=== PATIENT | female | born 1950 | race Caucasian/White ===

== ENCOUNTER 2017-10-01 21:00 | Emergency (ER) | payer MEDICARE, MEDICAID ==
[~2017-10-01] VITALS: Ht 157.5 cm; Wt 54.4 kg
[~2017-10-01 21:00] MED LIST: ALBUTEROL2.5 MG/0.5 IH; BACTRIM DS TAB1 EAC1 PO; KLOR-CON 1010 MEQ PO; LEVAQUIN 500 M500 M2 PO; LISINOPRIL20 MG; MOBIC15 MG PO; PREDNISONE 10 M10 MG PO; QUINAPRIL 20 MG20 MG PO; SPIRIVA INH; SYMBICORT160 MCG/4. INH; TRAMADOL 50 MG50 MG PO; VENTOLIN HFA 1818 GM INH
[2017-10-01] MEDS ORDERED: STELARA45 MG/0.5 (21:40)
[2017-10-01] MEDS ORDERED: DUONEB 2.5-0.5 M3 ML INH (21:41)
[2017-10-01] MEDS ORDERED: PREDNISONE50 MG PO (22:56)
[2017-10-01 23:07] VITALS: BP 108/75
--- NOTE | 2017-10-03 15:13 | EKG ---
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 : 1950 Requested By: Anyi Perez Order Number: [id number] Luis Armando MD: Gerhard Rock Measurements Intervals [place] Rate: 87 P: 66 [place]: 151 QRS: 70 QRSD: 107 T: 54 QT: 379 QTc: 456 Interpretive Statements Sinus rhythm Borderline ST depression, lateral leads Artifact in lead(s) I,II,III,aVR,aVL,V2,V3,V4,V5,V6 Compared to ECG 07/20/2015 22:40:06 Prolonged QT interval no longer present Electronically Signed On 10-03-2017 15:13:24 CDT by Gerhard Rock [email or web address] <ELECTRONICALLY SIGNED> By: Gerhard Rock MD, [facility] 10/03/17 1513 13 13 Gerhard Rock MD, [facility] /EPI
== END 2017-10-01 23:10 | disposition home or self-care (01) ==
LOC: M.ERS 21:00
DX: J44.1 Chronic obstructive pulmonary disease with (acute) exacerbation (principal); I10 Essential (primary) hypertension; Z96.651 Presence of right artificial knee joint; Z88.6 Allergy status to analgesic agent; Z88.5 Allergy status to narcotic agent; Z88.1 Allergy status to other antibiotic agents; Z88.8 Allergy status to other drugs, medicaments and biological substances

== ENCOUNTER 2018-10-03 14:18 | Emergency (ER) | payer MEDICARE, MEDICAID ==
[~2018-10-03] VITALS: Ht 157.5 cm; Wt 54.0 kg
[~2018-10-03 14:18] MED LIST changes: +DUONEB 2.5-0.5 M3 ML INH; +PREDNISONE50 MG PO; +STELARA45 MG/0.5
[2018-10-03] MEDS ORDERED: PREDNISONE 10 M10 M1 PO (14:25)
[2018-10-03] MEDS ORDERED: ATORVASTATIN CA40 MG PO (14:26)
[2018-10-03] MEDS ORDERED: NORVASC10 MG PO (14:26)
[2018-10-03] MEDS ORDERED: DALIRESP250 MCG PO (14:27)
[2018-10-03 14:49] LABS: ABSOLUTE EOSINOPHILS 0.1 thou/uL (0.0-0.7); ABSOLUTE LYMPHOCYTES 1.4 thou/uL (0.8-5.3); ABSOLUTE MONOCYTES 0.7 thou/uL (0.0-1.2); ABSOLUTE NEUTROPHILS 10.4 thou/uL (1.6-8.1); BASOPHILS 0.1 %; EOSINOPHILS 0.6 %; HEMATOCRIT 41.5 % (37.0-47.0); HEMOGLOBIN 13.9 gm/dL (12.0-15.0); MCH 28.2 pg (26.0-34.0); MCHC 33.4 g/dL (28.0-37.0); MCV 84.5 fL (80.0-100.0); MONOCYTES 5.6 %; MPV 8.4 fl. (7.2-11.1); NUCLEATED RBCS 0 /100WBC; PLATELET COUNT* 276 thou/uL (150-400); POLYS 82.7 %; RBC 4.92 mil/uL (4.20-5.00); RDW-CV 13.5 % (10.5-14.5); WBC 12.5 thou/uL (4.0-11.0)
[2018-10-03 14:57] LABS: ANION GAP 10 mmol/L (7-16); BUN 9 mg/dL (7-18); CALCIUM 8.6 mg/dL (8.5-10.1); CHLORIDE 95 mmol/L (98-107); CO2 25 mmol/L (21-32); CREATININE 0.7 mg/dL (0.6-1.3); GLUCOSE 127 mg/dL (70-99); POTASSIUM 3.5 mmol/L (3.5-5.1); SODIUM 130 mmol/L (136-145)
[2018-10-03 15:11] LABS: ALBUMIN 3.8 g/dL (3.4-5.0); ALKALINE PHOSPHATASE 92 U/L (46-116); NT-PRO BRAIN NAT PEPTIDE 72 pg/mL (<300); SGOT 22 U/L (15-37); SGPT 35 U/L (30-65); TOTAL BILIRUBIN 0.3 mg/dL (<0.1-1.0); TOTAL PROTEIN 7.1 g/dL (6.4-8.2); TROPONIN-I LEVEL <0.06 ng/mL (<0.06)
[2018-10-03 17:19] VITALS: BP 168/85
--- NOTE | 2018-10-04 12:54 | EKG ---
[place] [address] ELECTROCARDIOGRAM REPORT Name: YOLI ZAVALA Room: [facility]#: [id number] Admission: 10/03/18 Attend Phys: Discharge: 10/03/18 Date of : 52 Report #: [id number] THIS REPORT FOR: //name// [facility] ED Test Date: 2018-10-03 Test Time: 14:23:59 Pat Name: YOLI ZAVALA Department: Room: Gender: F Rn Transplant: Joe HUTTON : 1950 Requested By: Camilla Pulido Order Number: [id number] MD: Mateo Guajardo Measurements Intervals [place] Rate: 95 P: 78 [place]: 148 QRS: 60 QRSD: 86 T: 39 QT: 356 QTc: 448 Interpretive Statements Sinus rhythm Probable left atrial enlargement Borderline low voltage, extremity leads Artifact in lead(s) II,III,V1,V2,V3,V4,V5,V6 and baseline wander in lead(s) I,II,III,aVL,aVF Compared to ECG 10/01/2017 21:14:03 ST (T wave) deviation no longer present Electronically Signed On 10-04-2018 12:53:56 CDT by Mateo Guajardo [email or web address] <ELECTRONICALLY SIGNED> By: Mateo Guajardo MD, [facility] 10/04/18 1253 1423 1423 Mateo Guajardo MD, [facility] /EPI
== END 2018-10-03 17:13 | disposition home or self-care (01) ==
LOC: M.ERS 14:18
PROVIDERS: Nurse Practitioner Family
DX: J44.9 Chronic obstructive pulmonary disease, unspecified (principal); I10 Essential (primary) hypertension; Z96.651 Presence of right artificial knee joint; Z88.5 Allergy status to narcotic agent; Z88.6 Allergy status to analgesic agent; Z88.8 Allergy status to other drugs, medicaments and biological substances

== ENCOUNTER 2018-11-05 21:22 | Inpatient (IN) | payer MEDICARE, MEDICAID ==
[~2018-11-05] VITALS: Ht 157.5 cm; Wt 64.9 kg
--- NOTE | ~2018-11-05 | OP ---
[address] [address] OPERATIVE REPORT Name: SALLYYOLI J Room: [address] IN .R.#: [id number] Admission: 11/05/18 Attend Phys: Tiffany Cruz MD Discharge: Date of : 52 Report #: [id number] THIS REPORT FOR: //name// CC: [facility] physician/PCP Tiffany Cruz PREOPERATIVE DIAGNOSIS: Right distal femur periprosthetic fracture, comminuted. POSTOPERATIVE DIAGNOSIS: Right distal femur periprosthetic fracture, comminuted with stable implant. OPERATIONS PERFORMED: 1. Open reduction and internal fixation of right distal femur periprosthetic fracture. 2. Physician directed fluoroscopy greater than 1 hour. SURGEON: Ko Kennedy DO ASSISTANTS: 1. Ko Arenas DO 2. Karthik Aviles DO ANESTHESIA: General. ANTIBIOTICS: Ancef IV preoperatively. FLUIDS: 1000 mL of lactated Ringer's. ESTIMATED BLOOD LOSS: 250 mL. COMPLICATIONS: None. SPECIMENS: None. DRAINS: None. CONDITION: The patient is stable to PACU. IMPLANTS: Mary NCB distal femur plate, locking screws distally, two unicortical locking screws proximally with the remainder cortical screws. INDICATIONS FOR PROCEDURE: The patient presented to [facility] with a right femur fracture after a fall. I had multiple conversations with the patient and family going over diagnosis, treatment options and plan of surgery, risks and complications in detail. Please see the consultation note for full details of discussion had. We obtained her verbal and written consent to proceed as she acknowledged and [place] [address] OPERATIVE REPORT Name: YOLI ZAVALA Room: [address] IN .R.#: [id number] Admission: 11/05/18 Attend Phys: Tiffany Cruz MD Discharge: Date of : 52 Report #: [id number] DESCRIPTION OF PROCEDURE: I marked the right lower extremity in the presence of the operative team members and everyone agreed. She was taken back to the operative suite where a briefing was performed indicating correct patient, procedure, site, antibiotics and implants were present in sterile, all team members agreed. General anesthetic was administered. She was then transferred over to the operative table in supine position, well-padded and secured. The right lower extremity was sterilely prepped and draped in standard fashion. Timeout was performed indicating correct patient, procedure, site, antibiotics and implants were present and sterile. All team members agreed. She was brought in C-arm to help localizer her images that we would be using a MIPO technique so as to not disturb the fracture site biology due to all the comminution. We began by making our incision distally maintaining the incision just distal and not dissecting at the fracture site. Scalpel was taken through skin, dissecting down to the IT band, which was then incised with a secondary scalpel and we were onto the lateral aspect of the distal femur. We could visualize the femoral component and the anterior flange component was stable. There was fracture line extending into the metaphysis laterally, distal to the implant making this fracture came into see for plate placement. We then slid up a Majano elevator to make a way for plate placement. We trialed a 9-hole plate. The 9-hole plate was confirmed to be in appropriate position on multiplanar C-arm imaging with the fracture reduction being held, restoring length, alignment and rotation. This would leave a very short working length of the fracture with increased stiffness and next size up with a 13-hole plate and while this did take us up to the lesser trochanter, this would give us a better working construct for fixation. We therefore made an incision proximally, localized the plate to the bone and pinned into position with a K-wire distally and confirmed that we had restored length, alignment and rotation of our femur just obtaining excellent reduction. I placed 3 K-wires to hold into position distally. We confirmed on multiple images on multiple planes that her plate placement was excellent and that on the lateral image, we would be able to shoot screws around the implant and that we had restored length, alignment and rotation. We began by placing screws distally. We drilled, measured and placed appropriately sized screws with locking caps placed. We then began proximally by percutaneously making an incision carefully spreading down to the plate, drilling and placed an appropriately sized cortical screw. We had fixation both proximal and distal to the fracture now. Our fracture reduction was excellent. We placed 2 more cortical screws proximally, one unicortical locking screw in the most proximal hole, placed the remaining distal screws. At this point in time, we checked fracture stability with valgus and varus force. There was some motion at the fracture site and actually more gapping that I would like to see. I therefore added a unicortical locking screw proximal and another locking screw distally. While this did decrease the working length of the fracture site, there was still flexibility in the fracture as when I took the varus and valgus, there is not gapping as much as before, but could see some subtle motion in regards to the fracture fragments showing that we still had a flexible [address] [address] OPERATIVE REPORT Name: YOLI ZAVALA Room: [address]#: [id number] Admission: 11/05/18 Attend Phys: Tiffany Cruz MD Discharge: Date of : 52 Report #: [id number] construct. We took and shaved all C-arm images, which showed excellent placement of hardware and spiritism of length, alignment and rotation. We were able to flex her knee up to 120 degrees fully extend her knee with no impediment to motion and no instability of the fracture during that motion. We saved final C-arm images to dismiss the arm. We irrigated thoroughly all incision sites with normal saline including within the joint. We closed the deep layers reconstructing the IT band with 0 Vicryl [id number]-vo-qimmz interrupted. Subcutaneous and skin were closed with 2-0 Monocryl buried deep and david. A debriefing was performed where we confirmed the procedure, blood loss and that all counts were correct and final. All team members agreed. Sterile silver impregnated dressings were applied. She was fitted to a 3D hinged brace that was open from 0-115 degrees of motion. She was extubated and transferred on the operative table and taken to PACU in stable. POSTOPERATIVE COURSE AND EVALUATION: I spoke with family members, addressed any questions they had. They were thankful for my time and effort. Then, they can call anytime to make sure that access to my office on personal number. The patient was resting in the PACU with stable vital signs. Pain controlled. Neurovascularly, she was intact in that extremity with no change compared to preoperative. Her compartments are soft and compressible. Dressings were clean, dry and intact. Brace is well-fitting. PACU films showed stable internal fixation and fracture reduction. No change compared to our intraoperative images. We are obtaining as she was complaining of some minor back pain. The patient felt this was most likely due to the fact that she sleeps on her side. She is having no numbness, tingling or loss of sensation in her extremities. No bowel or bladder issues. She will be nonweightbearing on the right lower extremity. We will encourage range of motion throughout all joints in the right lower extremity. DVT prophylaxis will be pharmacological and mechanical pharmacologic. We will get the help of our medical colleagues. PT, OT, case management to help with discharge planning. By: [id number] Kennedy DO /jose
[~2018-11-05 21:22] MED LIST changes: +DALIRESP250 MCG PO; -DUONEB 2.5-0.5 M3 ML INH; +IPRAT-ALBUT 0.5-3 ML INH; +LIPITOR40 MG PO; +NORVASC10 MG PO; +PREDNISONE 10 M10 M1 PO
[2018-11-05 21:23] VITALS: BP 74/44
[2018-11-05 21:41] LABS: ABSOLUTE BASOPHILS 0.1 thou/uL (0.0-0.2); ABSOLUTE EOSINOPHILS 0.2 thou/uL (0.0-0.7); ABSOLUTE LYMPHOCYTES 2.4 thou/uL (0.8-5.3); ABSOLUTE MONOCYTES 1.1 thou/uL (0.0-1.2); ABSOLUTE NEUTROPHILS 8.9 thou/uL (1.6-8.1); BASOPHILS 0.4 %; EOSINOPHILS 1.6 %; HEMATOCRIT 37.5 % (37.0-47.0); HEMOGLOBIN 12.2 gm/dL (12.0-15.0); LYMPHOCYTES 18.9 %; MCH 27.7 pg (26.0-34.0); MCHC 32.5 g/dL (28.0-37.0); MCV 85.2 fL (80.0-100.0); MONOCYTES 8.7 %; MPV 8.1 fl. (7.2-11.1); NUCLEATED RBCS 0 /100WBC; PLATELET COUNT* 266 thou/uL (150-400); POLYS 70.4 %; RDW-CV 13.2 % (10.5-14.5); WBC 12.6 thou/uL (4.0-11.0)
[2018-11-05 21:52] LABS: PROTIME 10.1 Seconds (9.20-11.50)
[2018-11-05 21:57] LABS: CALCIUM 8.1 mg/dL (8.5-10.1); CREATININE 0.8 mg/dL (0.6-1.3); POTASSIUM 3.6 mmol/L (3.5-5.1)
[2018-11-05 22:02] LABS: ALBUMIN 3.3 g/dL (3.4-5.0); TOTAL BILIRUBIN 0.2 mg/dL (<0.1-1.0); TOTAL PROTEIN 5.9 g/dL (6.4-8.2)
[2018-11-06 01:30] VITALS: BP 110/66
[2018-11-06 02:39] VITALS: BP 125/72
[2018-11-06 08:19] VITALS: BP 104/66
[2018-11-06 10:25] LABS: BE -0.8 mmol/L (-2 to +3); PCO2 42.3 mmHg (35.0-45.0); PO2 70.6 mmHg (75.0-100.0); pH 7.379 (7.340-7.450)
[2018-11-06 11:15] VITALS: BP 99/58
[2018-11-06 16:11] VITALS: BP 112/68
[2018-11-06 19:40] VITALS: BP 118/73
[2018-11-07] VITALS (7 sets, daily range): BP systolic 112–139; BP diastolic 62–77
[2018-11-07 05:20] LABS: HEMATOCRIT 27.6 % (37.0-47.0); MCH 29.7 pg (26.0-34.0); MCHC 35.2 g/dL (28.0-37.0); MCV 84.4 fL (80.0-100.0); MPV 8.7 fl. (7.2-11.1); NUCLEATED RBCS 0 /100WBC; PLATELET COUNT* 202 thou/uL (150-400); RBC 3.28 mil/uL (4.20-5.00); RDW-CV 12.9 % (10.5-14.5); WBC 10.3 thou/uL (4.0-11.0)
[2018-11-07 05:24] LABS: HEMOGLOBIN 9.7 gm/dL (12.0-15.0)
[2018-11-07 05:43] LABS: CALCIUM 8.4 mg/dL (8.5-10.1); CREATININE 0.6 mg/dL (0.6-1.3); POTASSIUM 3.6 mmol/L (3.5-5.1)
[2018-11-07 05:53] LABS: ABSOLUTE LYMPHOCYTES 0.6 thou/uL (0.8-5.3); ABSOLUTE MONOCYTES 0.3 thou/uL (0.0-1.2); ABSOLUTE NEUTROPHILS 9.4 thou/uL (1.6-8.1); PLATELET ESTIMATE ADEQUATE
[2018-11-07 05:54] LABS: ANISOCYTOSIS 1+; POIKILOCYTOSIS 1+
--- NOTE | 2018-11-07 08:19 | CON ---
[address] [address] CONSULTATION Name: FERMINAGYOLI RÍOS Room: [address] IN .#: [id number] Admission: 11/05/18 Attend Phys: Tiffany Cruz MD Discharge: Date of : 52 Report #: [id number] THIS REPORT FOR: //name// CC: JAS MIRANDA MD [facility] physician/PCP Tiffany Cruz DATE OF SERVICE: 11/06/2018 ATTENDING PHYSICIAN: Jas Miranda MD I do have a primary care physician on this lady at this time. HISTORY OF PRESENT ILLNESS: The patient is a 67-year-old female, current smoker, is oxygen dependent on 2 liters, has been that way for the last several years. It appears she tripped over her oxygen tubing last night and then developed a right-sided and right leg pain. She had trouble in movement and could not bear any weight on it. She is seen by the ambulance. She was wheezy, had a cough and was transferred into the Emergency Room. She has had a couple doses of steroids from the last night to this morning as well as a couple breathing treatments. I was asked to see her to clear for surgery. They want to do a right femur pin with rods this afternoon, I believe by Dr. Ramirez. Her previous right hip replacement, she had several years ago, she tolerated well without needing any extra oxygen or having any anesthetic complications. PAST MEDICAL HISTORY: She has had COPD since being seen by Dr. Gilmore in 2013. She has had a couple of exacerbations, been on oxygen 2 liters. For some reason, she has been steroid dependent now for the last 4 months for COPD, on prednisone 10 mg a day. Again, she has this distal femur fracture, which is new. She did have a right knee replacement in 2006, which she tolerated well, again without problems and she has had a tubal ligation in 1974. Her medical illnesses include COPD. She has had some lower lobe pulmonary fibrosis on CT scans. I have not seen her PFTs and she also has a history of hypertension. ALLERGIES: SHE HAS ALLERGIES OR INTOLERANCE TO ACETAMINOPHEN WITH SOME NAUSEA, HYDROCODONE GIVES HER NAUSEA, AZITHROMYCIN GIVES HER NAUSEA, CODEINE GIVES HER NAUSEA, MORPHINE SAME NAUSEA AND HEADACHE AND COMPAZINE ALSO THE SAME. HOME MEDICATIONS: Include albuterol inhaler, Ventolin rescue inhaler. She has DuoNeb treatments 4 times a day. Prednisone dose is 10 mg daily. She is on Breo 200/5 mcg 1 puff daily and then also on roflumilast or Daliresp at 250 mcg daily, also on amlodipine 10 mg daily and atorvastatin 40 mg daily. In the hospital, she is on Solu-Medrol 62.5 mg IV push every 8 hours and also on oxygen at 4 liters and DuoNeb treatments q.4 hours. FAMILY HISTORY: Negative for [place] [address] CONSULTATION Name: YOLI ZAVALA Room: [address]#: [id number] Admission: 11/05/18 Attend Phys: Tiffany Cruz MD Discharge: Date of : 51 Report #: [id number] SOCIAL HISTORY: The patient is a current everyday 1 pack a day smoker and smokes about 1/2-1 pack a day. She has a 40 or 93-htdk-gmzj history of smoking. Denies any alcohol or illicit drug use. It appears she lives at home with her son who is in the room. There is also a sister and a friend who are also in the room. REVIEW OF SYSTEMS: A 14-review of systems reviewed and negative except for the pertinent positives noted in the HPI. Concern her COPD and her dyspnea. She denies any diabetes, etc. PHYSICAL EXAMINATION: GENERAL: Ill-appearing 67-year-old female who has her eyes closed most of the time. She has some mild nausea. She can answer me in full sentences. VITAL SIGNS: Her blood pressure is 100/60, heart rate is 88, respirations 16, and saturation on 4 liters 93%. She is 5 feet 3 inches tall, weight 63 kilograms or 138 pounds, BMI is 25. HEENT: Nares and pharynx are clear. NECK: Supple, without nodes. No increased jugular venous pressure. She is lying flat. CHEST: Shows hyperinflation, diminished breath sounds, prolonged expiratory phase, few end expiratory wheezes noted. I cannot roll her over and listen posteriorly. CARDIOVASCULAR: Regular rate and rhythm without murmur, gallop or rub. Heart rate is 88. ABDOMEN: Soft, without masses or megaly. EXTREMITIES: Right leg shows it has bandage. Peripheral pulses are 0-1+. Any movement causes her pain, left leg is without any cyanosis, clubbing or edema. She can move it gingerly. She will move all threes to commands. LABORATORY AND DIAGNOSTIC DATA: From late yesterday evening shows hemoglobin of 12, white count 12,600, MCV is 85 and platelets are 266,000. Normal differential was noted and sodium is 133, potassium is 3.6, chloride is 97, bicarbonate is 28, BUN is 9, creatinine 0.8 and glucose of 107, calcium is 8.1, albumin is 3.3. ABGs on 4 liters drawn at 10:00 a.m. this morning shows a pO2 of 71, pH 7.38, pCO2 is 42, bicarbonate is 25 with a sat of 92%. Carboxyhemoglobin is only 1.0. Chest x-ray shows COPD, hyperinflation. I do not see any interstitial infiltrates on her plain film and I do not have any PFTs in front of me. IMPRESSION: 1. Moderately dcxkxb-vg-bhjfug chronic obstructive pulmonary disease, oxygen dependent; also steroid dependent, recently. 2. Right femur fracture. 3. Bronchospasm. 4. [place] [address] CONSULTATION Name: YOLI ZAVALA Room: [address] [place] ..#: [id number] Admission: 11/05/18 Attend Phys: Tiffany Cruz MD Discharge: Date of : 52 Report #: [id number] PLAN: I discussed this with the patient and her family at the bedside. I think the benefits outweigh the risk of going to the OR in the next couple of hours. We will give another breathing treatment. She has had a couple doses of Solu-Medrol and she is less bronchospastic. ABGs are adequate on 4 liters. I do not think she will need prolonged mechanical ventilation at least at this time. She may need an extra breathing treatment either intraoperative or postoperatively if she has some bronchospasm. I think she should be able to be extubated relatively quickly in the PACU. Hopefully, she will need ICU status, but we could do that if needed. She will need followup ABGs and PFTs at some point in time. Certainly encouraged her discontinue smoking and then do full PFTs. She may need a DEXA scan to see if she is developing some osteoporosis while she is on the prednisone. She may need to be on some calcium supplementation or Prolia, etc. to prevent osteoporosis. Thanks again for allowing us to participate in this lady's care. It has been 37-minute critical care consult. I saw her on a stat basis after she was moved to the second floor in room 209. I talked to the nurse, Ellis about this and cleared her for surgery and I have just now dictated the note. Thanks again for allowing us to participate in this lady's care and we will follow up along with you postoperatively. <ELECTRONICALLY SIGNED> By: Liseth Bose MD 11/07/18 0819 1225 [id number] Meade MD /nt
[2018-11-08] VITALS: BP 114/65
[2018-11-08 05:14] LABS: ABSOLUTE LYMPHOCYTES 1.2 thou/uL (0.8-5.3); ABSOLUTE MONOCYTES 1.6 thou/uL (0.0-1.2); ABSOLUTE NEUTROPHILS 12.5 thou/uL (1.6-8.1); EOSINOPHILS 0.1 %; HEMATOCRIT 23.7 % (37.0-47.0); LYMPHOCYTES 7.6 %; MCH 28.7 pg (26.0-34.0); MCHC 33.9 g/dL (28.0-37.0); MCV 84.6 fL (80.0-100.0); MONOCYTES 10.5 %; MPV 8.8 fl. (7.2-11.1); NUCLEATED RBCS 0 /100WBC; PLATELET COUNT* 192 thou/uL (150-400); POLYS 81.8 %; RDW-CV 12.8 % (10.5-14.5); WBC 15.3 thou/uL (4.0-11.0)
[2018-11-08 05:23] LABS: ALBUMIN 2.6 g/dL (3.4-5.0); CALCIUM 8.2 mg/dL (8.5-10.1); CREATININE 0.7 mg/dL (0.6-1.3); TOTAL BILIRUBIN 0.3 mg/dL (<0.1-1.0); TOTAL PROTEIN 5.3 g/dL (6.4-8.2)
[2018-11-08 08:00] VITALS: BP 121/75
[2018-11-08 15:36] VITALS: BP 122/79
[2018-11-08 20:00] VITALS: BP 110/79
[2018-11-09] VITALS: BP 112/76
[2018-11-09 04:00] VITALS: BP 98/70
[2018-11-09 08:00] VITALS: BP 102/71
[2018-11-09 08:24] LABS: ABSOLUTE LYMPHOCYTES 1.5 thou/uL (0.8-5.3); ABSOLUTE MONOCYTES 0.9 thou/uL (0.0-1.2); ABSOLUTE NEUTROPHILS 5.1 thou/uL (1.6-8.1); BASOPHILS 0.1 %; EOSINOPHILS 0.4 %; HEMATOCRIT 20.9 % (37.0-47.0); HEMOGLOBIN 7.3 gm/dL (12.0-15.0); MCH 29.2 pg (26.0-34.0); MCHC 34.8 g/dL (28.0-37.0); MCV 83.9 fL (80.0-100.0); MONOCYTES 11.9 %; MPV 8.8 fl. (7.2-11.1); NUCLEATED RBCS 0 /100WBC; PLATELET COUNT* 175 thou/uL (150-400); POLYS 67.6 %; RBC 2.49 mil/uL (4.20-5.00); RDW-CV 12.9 % (10.5-14.5); WBC 7.6 thou/uL (4.0-11.0)
[2018-11-09 08:56] LABS: ALBUMIN 2.3 g/dL (3.4-5.0); CALCIUM 7.6 mg/dL (8.5-10.1); CREATININE 0.5 mg/dL (0.6-1.3); POTASSIUM 3.7 mmol/L (3.5-5.1); TOTAL BILIRUBIN 0.4 mg/dL (<0.1-1.0); TOTAL PROTEIN 4.3 g/dL (6.4-8.2)
[2018-11-09] MEDS ORDERED: BROVANA15 MCG/2 M INH (15:12)
[2018-11-09] MEDS ORDERED: ENOXAPARIN40 MG/0.1 SUBQ (15:13)
[2018-11-09] MEDS ORDERED: OXYCODONE HCL 55 MG PO (15:16)
[2018-11-09 15:17] VITALS: BP 102/71
--- NOTE | 2018-11-12 12:54 | CON ---
[address] [address] CONSULTATION Name: ALLANRODYOLI J Room: [address]#: [id number] Admission: 11/05/18 Attend Phys: Tiffany Cruz MD Discharge: 11/09/18 Date of : 52 Report #: [id number] THIS REPORT FOR: //name// CC: [facility] physician/PCP Tiffany Cruz UROLOGY CONSULTATION REFERRING PHYSICIAN: Maurizio Chris MD. REASON FOR CONSULTATION: Urinary retention. HISTORY OF PRESENT ILLNESS: This is a 67-year-old lady admitted with multiple medical problems, status post fall and hip fracture, which she has had surgically addressed. She has developed postoperative urinary retention and Urology was consulted regarding that. She reports her Casillas catheter was removed yesterday, but had to be replaced due to inability to empty her bladder adequately. Denies pain with catheter. She states that prior to her fall, she was voiding easily with no dysuria, hematuria, incomplete emptying or slowing of the stream. She denies any prior bladder problems. PAST MEDICAL HISTORY: Significant for DJD, COPD, hypertension, hyperlipidemia, pulmonary fibrosis. ALLERGIES: INCLUDE VICODIN, ZITHROMAX AND COMPAZINE. MEDICATIONS: List is reviewed. FAMILY HISTORY: She does not know of any renal disease in the family. SOCIAL HISTORY: She smokes tobacco. Denies use of alcohol or recreational drugs. REVIEW OF SYSTEMS: As per history of present illness. She complains of fatigue and weakness. Denies fever or chills. Denies nausea, vomiting. Denies chest pain or palpitations. She reports chronic shortness of breath and intermittent cough. Denies nausea or vomiting. PHYSICAL EXAMINATION: VITAL SIGNS: Temperature 36.4, pulse 87, respirations 19, blood pressure 112/74. GENERAL: This is a 67-year-old female in no acute distress. She is awake, alert and oriented. Answers questions appropriately. HEENT: Normocephalic, atraumatic. Oropharynx is clear. Extraocular movements are intact. NECK: Supple. No JVD. LUNGS: Respiratory effort [place] [address] CONSULTATION Name: YOLI ZAVALA Room: [address]#: [id number] Admission: 11/05/18 Attend Phys: Tiffany Cruz MD Discharge: 11/09/18 Date of : 52 Report #: [id number] CARDIAC: Rhythm is regular. Radial pulses are palpable. EXTREMITIES: Warm. She moves all extremities. No peripheral edema. She has a brace in place on the right lower extremity related to her recent surgery. ABDOMEN: Soft, nontender, nondistended. Bladder is nonpalpable. Spine and costovertebral angles are nontender. Casillas catheter is in place, draining grossly clear urine. PELVIC: Otherwise deferred. LABORATORY DATA: Include hemoglobin 8.1, white count 7.4, platelet count 228,000. Sodium 132, potassium 3.9, chloride 95, CO2 29, BUN 11, creatinine 0.6, glucose 109. Urinalysis pending. IMPRESSION: Postoperative urinary retention, likely due to acute illness and debility as well as immobility. RECOMMENDATION: We will follow up regarding urinalysis. Would leave a Casillas catheter in place until she is improved from a clinical standpoint with improvement in mobility and closer to discharge. We can follow up regarding voiding trial at that time. If she is discharged over the next couple of days, she can certainly follow up as an outpatient regarding catheter management. <ELECTRONICALLY SIGNED> By: Chaitanya Gonzalez MD 11/12/18 1254 0911 [id number] Gonzalez MD /nt
== END 2018-11-09 15:31 | DRG 480 ==
LOC: M.ERS 21:22 → M.2W 22:51 → M.ORTHSURG 22:51 → M.TBA-ER 22:51 → M.ORTHSURG 11-06 01:59 → M.2W 11-06 11:01
PROVIDERS: Emergency Medicine; Internal Medicine; ADMIT Family Medicine
PROC: 2W3NX1Z Immobilization of Right Upper Leg using Splint (ICD-10-PCS; principal; 2018-11-05)
PROC: 0QSB04Z Reposition Right Lower Femur with Internal Fixation Device, Open Approach (ICD-10-PCS; 2018-11-07)
DX: S72.401A Unspecified fracture of lower end of right femur, initial encounter for closed fracture (principal); J96.20 Acute and chronic respiratory failure, unspecified whether with hypoxia or hypercapnia; M97.01XA Periprosthetic fracture around internal prosthetic right hip joint, initial encounter; E87.1 Hypo-osmolality and hyponatremia; D62 Acute posthemorrhagic anemia; J44.9 Chronic obstructive pulmonary disease, unspecified; I10 Essential (primary) hypertension; M19.90 Unspecified osteoarthritis, unspecified site; E78.5 Hyperlipidemia, unspecified; R33.9 Retention of urine, unspecified; F17.210 Nicotine dependence, cigarettes, uncomplicated; J84.10 Pulmonary fibrosis, unspecified; J45.909 Unspecified asthma, uncomplicated; Z96.651 Presence of right artificial knee joint; Z88.6 Allergy status to analgesic agent; Z88.1 Allergy status to other antibiotic agents; Z88.8 Allergy status to other drugs, medicaments and biological substances; Z99.81 Dependence on supplemental oxygen; Z79.52 Long term (current) use of systemic steroids; W01.0XXA Fall on same level from slipping, tripping and stumbling without subsequent striking against object, initial encounter; Y93.89 Activity, other specified; Y92.89 Other specified places as the place of occurrence of the external cause; Y99.8 Other external cause status

== ENCOUNTER 2018-11-09 13:43 | Inpatient (IN) | payer MEDICARE, MEDICAID ==
[~2018-11-09] VITALS: Ht 157.5 cm; Wt 57.8 kg
[2018-11-09] MEDS ORDERED: BROVANA15 MCG/2 M INH (15:12)
[2018-11-09] MEDS ORDERED: ENOXAPARIN40 MG/0.1 SUBQ (15:13)
[2018-11-09] MEDS ORDERED: OXYCODONE HCL 55 MG PO (15:16)
[2018-11-09 15:54] VITALS: BP 121/80
[2018-11-09 20:09] VITALS: BP 130/81
[2018-11-09 20:15] VITALS: BP 129/73
[2018-11-10 04:44] LABS: HEMATOCRIT 23.9 % (37.0-47.0); HEMOGLOBIN 8.1 gm/dL (12.0-15.0); MCH 28.7 pg (26.0-34.0); MCV 84.4 fL (80.0-100.0); MPV 8.5 fl. (7.2-11.1); RBC 2.83 mil/uL (4.20-5.00); RDW-CV 13.3 % (10.5-14.5); WBC 7.4 thou/uL (4.0-11.0)
[2018-11-10 04:52] LABS: CALCIUM 8.3 mg/dL (8.5-10.1); CREATININE 0.6 mg/dL (0.6-1.3); POTASSIUM 3.9 mmol/L (3.5-5.1)
--- NOTE | 2018-11-10 05:35 | NUR ---
PATIENT SLEPT PART OF THE NIGHT. PATIENT WAS UNABLE TO VOID SINCE CATHETER WAS TAKEN OUT THIS AFTERNOON DR. MIRANDA WAS CALLED ABOUT 2300. ORDER TO PLACE SANTOS WAS RECEIVED. SANTOS REMAINS TO DEPENDENT DRAIN. PATIENT WAS GIVEN TYLENOL AND TRAMADOL WITH SOME RELIEF. WILL CONTINUE TO MONITOR.
[2018-11-10 08:32] VITALS: BP 112/74
[2018-11-10 15:13] LABS: URINE BILIRUBIN NEGATIVE (Negative); URINE BLOOD 3+ (Negative); URINE CLARITY CLOUDY; URINE COLOR BROWN; URINE GLUCOSE-RANDOM TRACE (Negative); URINE KETONES NEGATIVE (Negative); URINE LEUKOCYTES 1+ (Negative); URINE NITRITE NEGATIVE (Negative); URINE PROTEIN 1+ (Negative); URINE SPECIFIC GRAVITY <= 1.005 (1.005-1.030)
[2018-11-10 15:29] LABS: SQUAMOUS 0-3 Few /LPF (0-3)
[2018-11-10 15:30] LABS: URINE RBC >20 Many /HPF (0-2); URINE WBC 6-15 Few /HPF (0-5)
[2018-11-10 15:31] LABS: CASTS None Seen /LPF (None Seen); CRYSTALS None Seen /LPF (None Seen); MUCUS 4-6 Moderate strn/LPF (None Seen)
--- NOTE | 2018-11-10 16:30 | NUR ---
PATIENT SAT IN CHAIR FOR BREAKFAST. PATIENT SLEPT MOST OF THE SHIFT AFTER THERAPIES, STATED SHE DID NOT GET ANY SLEEP LAST NIGHT. SCHED GABAPENTIN ORDERED AND STARTED THIS SHIFT, PATIENT GIVEN PRN FLEXERIL FOR MUSCLE SPASMS THIS EVENING. BRUISING NOTED TO RIGHT LEG, SKIN CHECK PERFORMED WITH IMMOBILIZER AND DRESSING. UA SENT PER ORDERS AND DR. MIRANDA NOTIFIED OF RESULTS AND ORDERS FOR PO TO ABX TO START. PATIENT MADE AWARE OF PLAN OF CARE. PATIENT ENCOURAGED TO DRINK MORE WATER URINE WAS DARK, SMALL BLOODY SEDIMENT NOTED IN TUBING, DR. MIRANDA AWARE.
--- NOTE | 2018-11-10 18:31 | NUR ---
PATIENT CONTINUED TO C/O THROBBING AND SPASMS AFTER PRN TRAMADOL AND FLEXERIL GIVEN. RIGHT LEG ELEVATED AND PEDAL PULSE STILL NOTED, TOES WARM. DR. [place] AUDIT CLERKS SUPERVISOR FOR DR. MIRANDA AND ORDERS RECEIVED FOR PRN IBUPROFEN AND INCREASE GABAPENTIN TO TID. WILL CONTINUE TO MONITOR.
[2018-11-10 19:57] VITALS: BP 108/70
--- NOTE | 2018-11-10 20:40 | NUR ---
RESTING IN BED. SEVERAL VISITORS PRESENT.
--- NOTE | 2018-11-11 05:51 | NUR ---
PT'S SON STAYED IN ROOM WITH PATIENT ALL NIGHT. ONE TRAMADOL GIVEN AT 0254 FOR COMPLAINT OF RIGHT LEG PAIN WITH RELIEF. HOURLY ROUNDING IN PROGRESS. 02 NC AT 3 LITERS.
[2018-11-11 08:00] VITALS: BP 100/63
--- NOTE | 2018-11-11 17:09 | NUR ---
AM ASSESSMENT AND VITAL SIGNS COMPLETED DOCUMENTED. PT GETS SHORT OF BREATH WITH MINIMAL ACTIVITY, WEARS 2-3L/ NC O2 AT BASELINE. FC TO DD, PT STARTED ON CEFTIN WHILE C&S IS PENDING. PT TRANSFERS WITH MIN ASSIST. FALL PRECAUTIONS AND HOURLY ROUNDING CONTINUE.
[2018-11-11 20:00] VITALS: BP 105/66
--- NOTE | 2018-11-12 05:31 | NUR ---
ASSUMED CARES AT 1920. ALERT AND ORIENTED. PLEASANT. O2 3L NC. NWB RLE WHICH IS CM WRAPPED AND IN BRACE. PAIN MEDS GIVEN NEEDED. SANTOS CATHETER DD CLEAR YELLOW URINE. PT STATES THAT HAS NOT HAD BM FOR ALMOST A WEEK. EDUCATED PT ON IMPORTANCE OF BOWEL MANAGEMENT. SLEPT OFF AND ON. CALL LIGHT IN REACH AND BED ALARM ON.
[2018-11-12 08:07] VITALS: BP 92/61
--- NOTE | 2018-11-12 10:46 | NUR ---
INITIAL ASSESSMENT: PATIENT ADMITTED TO THE ACUTE INPATIENT REHAB UNIT ON 11/09/18 WITH A DIAGNOSIS OF RIGHT FEMUR FX. PATIENT IS ALERT AND ORIENTED. PRIOR TO ADMISSION PATIENT WAS ACTIVE AND INDEPENDENT. PATIENT DRIVES, AND WAS ABLE TO PREPARE OWN MEALS AND CLEAN HER OWN HOME. PATIENT OWNS A WALKER AND 4 POINT CANE, BUT DID NOT USE THEM PRIOR TO ADMISSION). PATIENT INFORMS THAT SHE USES 2L HOME OXYGEN AT [facility], AND HAS A PORTABLE OXYGEN MACHINE (JOANNA PORTABLE, SIMILAR TO INOGEN) SUPPLIED BY [employer]. PATIENT INFORMS THAT HER PCP IS JOSE RENDON D.O. AT [place], [place]. PATIENT HAS NO HX OF OR SNF. PATIENT INFORMS THAT HER SISTER HAS THE KEYS TO HER HOME, AND SHE WILL BE OUT OF TOWN UNTIL NEXT WEEK SO SHE IS CONCERNED ABOUT BEING DISCHARGED PRIOR TO HER SISTERS RETURN. PATIENT ALSO INFORMS THAT HER COUSIN PLANS TO STAY WITH HER AT HER HOME TO ASSIST HER AT D/C. PATIENT ORIENTED TO THE ROLE OF CM, ACUTE INPATIENT REHAB UNIT, TEAM CONFRENCE, AND RESIDENTS RIGHTS INFO. CM WILL REMAIN AVAILABLE TO ASSIST AND FOLLOW NEEDED.
--- NOTE | 2018-11-12 11:41 | NUR ---
Nutrition: Pt admitted to rehab with Rt femur FX. H/o COPD, pulm fibrosis. Wt is usually ~140#. Today, wt is entered as 116#. Suspect error - please reweigh for accuracy. No BM x1 week. Labs: BG 109, alb 2.3, prealb 13.7. Severely depleted visceral protein stores. Regular diet ordered. RD will order Beneprotein packets for added protein intake. Mild risk. Will follow weekly for po intake, labs, wt.
--- NOTE | 2018-11-12 16:12 | NUR ---
ASSUMMED CARE OF PT AT 0730, PT ALERT AND ORIENTED, TRANSFERS WITH ASSIST OF 1, GB WALKER, PT TO MAINTAIN NWB TO RIGHT LEG, BRACE TO RIGHT LEG, SANTOS PATENT AND DRAINING CHAYITO URINE, PT STATES HAS HAD NO STOOL X 7 DAYS, PT STATES AT HOMES SHE SOMETIMES DOES NOT HAVE BM X 1 WEEK, PT REFUSED TO TAKE ANY ADDITIONAL MEDICATIONS , MOM OR SUPP, STATED SHE DOES NOT WANT ANYTHING DONE AT THIS POINT, EDUCATED PT ON IMPORTANCE OF NOT BECOMING CONSTIPATED, BUT PT CONTINUES TO REFUSE FURTHER MEDS, SALINE LOCK REMOVED FROM LEFT WRIST, PT STATES SHE DOES BECOME SOA WITH ACTIVITY, O2 ON CONTINUOUSLY AT 3L WITH SATS OF 99%, TAKING FOOD AND FLUIDS WELL, DRESSING TO RIGHT HIP SATURATED, AND LOOSE, CHANGED X 1, PARTICIPATED IN ALL THERAPIES, HOURLY ROUNDING COMPLETED, ASSESSMENT COMPLETE, WILL CONTINUE TO MONITOR.
[2018-11-12 19:30] VITALS: BP 127/78
--- NOTE | 2018-11-13 05:10 | NUR ---
ASSUMED CARE AT 1930. PATIENT RESTING IN BED. SANTOS DRAINING CHAYITO URINE. C/O NO STOOL X7 DAYS BUT REFUSES LAXATIVES. DID TAKE COLACE. O2 3L/NC. TURNS SELF. TAKES PILLS WHOLE WITH WATER. DSSG C/D/I. NWB TO RLE. BRACE INTACT ALL SHIFT. MEDICATED FOR PAIN, SEE JUL. HOURLY ROUNDS CONTINUE. BED ALARM. CALL LITE IN REACH.
[2018-11-13 08:28] VITALS: BP 100/64
--- NOTE | 2018-11-13 17:15 | NUR ---
ASSUMMED CARE OF PT AT 0730, PT ALERT AND ORIENTED, TRANSFERS WITH ASSIST OF 1, GB WALKER, MAINTAINS NWB STATUS TO RIGHT LEG, DRESSING C/D/I. SANTOS PATENT AND DRAINING CHAYITO URINE, TAKING FOOD AND FLUIDS WELL, PT ENCOURAGED TO TAKE BOWEL MEDICATION, BUT REFUSED AND STATES SHE WILL ASK FOR IT WHEN SHE NEEDS IT, PT COMPLAINS OF PAIN IN RIGHT LEG, MEDICATED PER ORDER, HAD LUNCH IN DININGROOM, PARTICIPATED IN THERAPY BUT DOES REQUEST TO LAY IN BED BETWEEN THERAPIES, HOURLY ROUNDING COMPLETED, ASSESSMENT COMPLETE, WILL CONTINUE TO MONITOR.
[2018-11-13 19:30] VITALS: BP 103/68
--- NOTE | 2018-11-13 19:45 | NUR ---
FLEXERIL GIVEN PER REQUEST FOR COMPLAINT OF MUSCLE SPASMS. LEFT LEG IMMOBILIZER INTACT. SANTOS TO DD WITH CLEAR/YELLOW URINE. PATIENT AGREEABLE TO DRINKING SOME PRUNE JUICE. 02 NC AT 3 LITERS.
--- NOTE | 2018-11-14 05:47 | NUR ---
RESTED ON/OFF. ONE PRN TRAMADOL GIVEN PER REQUEST FOR COMPLAINT OF RIGHT LEG PAIN GIVEN AT 2110, 2307 AND 322 WITH RELIEF. REMAINS ON 02 NC AT 3 LITERS. HOURLY ROUNDING IN PROGRESS.
[2018-11-14 10:14] VITALS: BP 104/63
--- NOTE | 2018-11-14 16:55 | NUR ---
FRANSICO and Dr Garcia met with pt to review team conference summary and plan for reteam next Tuesday 11/21. Pt in agreement with plan. SW to continue to follow to assist with safe dc planning.
--- NOTE | 2018-11-14 18:40 | NUR ---
PATIENT ALERT AND ORIENTED X 4. CONT. 02 3L NC. UP WITH EXTENSIVE ASSIST OF ONE. NWB RT LEG. DENIES COMPLAINTS OF PAIN OR DISCOMFORT. NO SIGN OF DISTRESS. CONT. WITH CURRENT PLAN OF CARE.
[2018-11-14 19:30] VITALS: BP 108/68
--- NOTE | 2018-11-15 00:36 | NUR ---
ASSUMED CARE AT 1930. PATIENT RESTING IN BED. SANTOS DRAINING CHAYITO URINE. TAKES PILLS WHOLE WITH WATER. TURNS SELF IN BED. DOES NEED SOME HELP WITH RIGHT LEG POSITIONING ON PILLOW. RLE BRACE INTACT, RLE DSSG INTACT. HAS NOT HAD BM, BUT REFUSES OFFER OF LAXATIVES. TAKES PILLS WHOLE WITH WATER. O2 4L/NC. MEDICATED FOR PAIN. SEE MAR. DID HAVE SOME MUSCLE SPASMS LATER, GIVEN WARM BLANKET TO AREA. HOURLY ROUNDS CONTINUE. BED ALARM ON. CALL LITE IN REACH.
--- NOTE | 2018-11-15 06:54 | NUR ---
SLEPT MOST OF THE NIGHT. SANTOS DRAINED CHAYITO URINE. MEDICATED FOR PAIN THIS MORNING. TURNS SELF. DRESSINGS C/D/I. BRACE IN USE. CALL LITE IN REACH. BED ALARM ON. HOURLY ROUNDS CONTINUE.
[2018-11-15 08:33] VITALS: BP 108/70
--- NOTE | 2018-11-15 18:12 | NUR ---
PT VSS THIS SHIFT. PT TOLERATING O2 @ 3L THIS SHIFT, SANTOS IS IN PLACE WITH STAT LOCK. PT TOLERATING REGULAR DIET AT THIS TIME. NWB TO RLE WAS MAINTAINED THIS SHIFT. PT HAS BRACE TO RLE AND AFTER IT WAS FOUND OUT THAT THIS FACILITY DOES NOT HAVE A SMALLER SIZE IT WAS DISCUSSED WITH DR BECK TO CONTACT THE [facility] TO SEE IF THEY CAN COME AND FIGURE OUT A BETTER FIT FOR THE PT LONG IT IS A 3D HINGE BRACE THAT HAS 0-90 DEGREES. THIS ORDER WAS CALLED TO THE [facility] AND THE ORDER WAS FAXED WITH FACE SHEET AND PT HEIGHT AND WEIGHT TO THE [facility] THIS SHIFT. FALL PXN IN PLACE, HOURLY ROUNDING MAINTAINED, WILL CONTINUE TO MONITOR AND ASSESS
[2018-11-15 20:16] VITALS: BP 112/69
--- NOTE | 2018-11-16 06:26 | NUR ---
ASSUMED CARE AT 1920. ALERT AND ORIENTED, PLEASANT. NWBRLE. BRACE TO RLE. 02 3-4L NC. CAN GET EASILY SHORT OF AIR WITH EXERTION. PAIN MEDS GIVEN NEEDED FOR RIGHT LEG PAIN. SANTOS CATHETER DD YELLOW URINE. MOD ASSIST WITH GAIT BELT AND W/C. STAND AND PIVOT. LEFT LEG WEAK AT TIMES. NEEDS ASSIST WITH DRESSING. UP TO BATHROOM AND DID HAVE LARGE BM. SLEPT SOME OFF AND ON. CALL LIGHT IN REACH AND BED ALARM ON.
[2018-11-16 08:29] VITALS: BP 96/57
--- NOTE | 2018-11-16 18:06 | NUR ---
ASSUMMED CARE OF PT AT 0730, PT ALERT AND ORIENTED, PT TRANSFERS WITH SBA/MIN ASSIST GB WALKER , MAINTAINS NWB STATUS TO RIGHT LEG, BECOMES SOA EASILY, O2 ON CONTINUOSLY AT 3L, SANTOS PATIENT AND DRAINING CHAYITO URINE, ADDITIONAL DOSE OF LASIX GIVEN TODAY, TOWER OBSERVER [employer]TH[employer] GAVE PT A DIFFERENT BRACE TODAY, PT STATES IT FITS BETTER, PT MEDICATED PER ORDER FOR PAIN, REQUESTING TYLENOL AND STATES STRONGER PAIN MEDS MAKE HER TOO SLEEPY, DRSG INTACT, HAD LUNCH IN DININGROOM, PARTICIPATED IN ALL THERAPIES, HOURLY ROUNDING COMPLETED, ASSESSMENT COMPLETE, WILL CONTINUE TO MONITOR.
[2018-11-16 20:13] VITALS: BP 102/61
--- NOTE | 2018-11-17 05:20 | NUR ---
ALERT AND ORIENTED. PLEASANT. NWB RLE WITH BRACE. O2 3L NC. SANTOS CATHETER DD YELLOW URINE. C/O PAIN TO RIGHT LEG. PAIN MEDS GIVEN NEEDED. SLEPT MOST OF THE NIGHT. CALL LIGHT IN REACH AND BED ALARM ON.
[2018-11-17 05:50] VITALS: BP 104/62
[2018-11-17 07:56] VITALS: BP 94/59
--- NOTE | 2018-11-17 20:00 | NUR ---
IN BED RECEIVING BREATHING TX'S. 02 NC AT 3 LITERS. SANTOS TO DEPENDENT DRAINAGE WITH CLEAR/YELLOW URINE. FLEXERIL GIVEN FOR COMPLAINT OF RIGHT LEG THROBBING. CALL LIGHT WITHIN REACH.
[2018-11-17 20:27] VITALS: BP 145/67
--- NOTE | 2018-11-18 05:48 | NUR ---
HAD DIFFICULTY GETTING PAIN RELIEF. RELENTED TO TAKING ONE TRAMADOL AT 2226 AFTER NO RELIEF FROM TYLENOL AND FINALLY OBTAINED RELIEF FROM RIGHT LEG DISCOMFORT. HOURLY ROUNDING IN PROGRESS.
[2018-11-18 07:00] VITALS: BP 91/59
--- NOTE | 2018-11-18 16:28 | NUR ---
PATIENT ALERT AND ORIENTED X 4. SANTOS PATENT TO D/D. PATIENT ASKING TO SEE ORTHO TO REMOVE SUTURES. ORTHO RES HERE THIS AM BUT DID NOT REMOVE. EXPLAINED THAT A CONSULT HAS BEEN PLACED AND THEY PLAN TO RETURN. PATIENT WITHOUT ANY FURTHER COMPLAINTS. CONT. WITH CURRENT PLAN OF CARE AT THIS TIME.
[2018-11-18 19:30] VITALS: BP 119/71
--- NOTE | 2018-11-18 20:00 | NUR ---
IN BED TALKING ON THE CELL PHONE. SANTOS TO DEPENDENT DRAINAGE WITH CLEAR/YELLOW URINE. FLEXERIL GIVEN FOR DISCOMFORT OF RIGHT LEG. RIGHT LEG IMMOBILIZER IN PLACE.
--- NOTE | 2018-11-19 05:27 | NUR ---
TRAMADOL GIVEN AT 2207 FOR COMPLAINT OF RIGHT LEG PAIN WITH RELIEF. SON CAME LATE AND SPENT THE NIGHT IN ROOM WITH PATIENT. IN BETTER SPIRITS THIS MORNING. HOURLY ROUNDING IN PROGRESS.
[2018-11-19 08:30] VITALS: BP 110/72
--- NOTE | 2018-11-19 12:19 | EKG ---
[place] [address] ELECTROCARDIOGRAM REPORT Name: YOLI ZAVALA Room: [address] ADM IN M.R.#: [id number] Admission: 11/09/18 Attend Phys: Gilberto Garcia MD Discharge: Date of : 52 Report #: [id number] THIS REPORT FOR: //name// [facility] Test Date: 2018-11-17 Test Time: 07:09:05 Pat Name: YOLI ZAVALA Department: Room: [address] Gender: F Controlled [employer]ace Brazer: TERRY : 1950 Requested By: Akbar Guadarrama Order Number: [id number] Luis Armando SOLORZANO: Chaitanya Lopez Measurements Intervals [place] Rate: 74 P: 70 RI: 145 QRS: 59 QRSD: 111 T: 48 QT: 393 QTc: 436 Interpretive Statements Sinus rhythm Low voltage, extremity leads Compared to ECG 10/03/2018 14:23:59 No significant changes Electronically Signed On 11-19-2018 12:18:51 CDT by Chaitanya Lopez [email or web address] <ELECTRONICALLY SIGNED> By: Chaitanya Lopez MD, [facility] 11/19/18 1218 0709 Chaitanya Lopez MD, [facility] /EPI
--- NOTE | 2018-11-19 17:28 | NUR ---
PATIENT RESTING IN BED. PATIENT WAS UP IN CHAIR MOST OF DAY AND WORKED WITH THERAPIES. PATIENT HAD COMPLAINTS OF SHORTNESS OF AIR THIS AFTERNOON, TREATED ADEQUATELY WITH BREATHING TREATMENT, DENIES ANY TROUBLE BREATHING AT THIS TIME. OXYGEN IS ON AT 3L/NC. PATIENT HAD COMPALINTS OF PAIN, TREATED ADEQUATELY WITH TYLENOL AND IBUPROFEN. PATIENT HAD GOOD APPETITE. PATIENT DENIES ANY NEEDS AT THIS TIME. CALL LIGHT WITHIN REACH. WILL CONTINUE TO MONITOR.
[2018-11-19 19:30] VITALS: BP 108/69
[2018-11-20 04:35] LABS: ABSOLUTE LYMPHOCYTES 1.8 thou/uL (0.8-5.3); ABSOLUTE MONOCYTES 0.9 thou/uL (0.0-1.2); ABSOLUTE NEUTROPHILS 8.8 thou/uL (1.6-8.1); BASOPHILS 0.1 %; CALCIUM 8.4 mg/dL (8.5-10.1); CREATININE 0.7 mg/dL (0.6-1.3); EOSINOPHILS 0.3 %; HEMOGLOBIN 8.1 gm/dL (12.0-15.0); LYMPHOCYTES 15.4 %; MAGNESIUM 1.9 mg/dL (1.8-2.4); MCH 28.8 pg (26.0-34.0); MCHC 33.7 g/dL (28.0-37.0); MCV 85.5 fL (80.0-100.0); MONOCYTES 7.5 %; MPV 7.2 fl. (7.2-11.1); NUCLEATED RBCS 0 /100WBC; PLATELET COUNT* 388 thou/uL (150-400); POLYS 76.7 %; RBC 2.81 mil/uL (4.20-5.00); RDW-CV 14.2 % (10.5-14.5); WBC 11.5 thou/uL (4.0-11.0)
--- NOTE | 2018-11-20 05:18 | NUR ---
ASSUMED CARES AT 1920. ALERT AND ORIENTED. PLEASANT. NWB RLE WITH BRACE INTACT. O2 3L NC. C/O COUGH. SANTOS CATHETER DD YELLOW URINE. PAIN MEDS GIVEN NEEDED FOR RIGHT LEG PAIN. SLEPT OFF AND ON. CALL LIGHT IN REACH AND BED ALARM ON.
[2018-11-20 07:49] VITALS: BP 111/72
--- NOTE | 2018-11-20 10:41 | NUR ---
PAGED ORTHO REQUESTED BY DR RIVERA TO INQUIRE WHEN TO EXPECT THE STITCHES TO BE REMOVED. DR RIVERA ALSO GAVE VERBAL ORDER TO TAKE OUT SANTOS CATHETER, WILL REMOVE MINERVA AND DO POST VOID RESIDUALS OR Q4 X3 BASED ON RESIDUALS NUMBERS.
--- NOTE | 2018-11-20 13:39 | NUR ---
ORTHO CALLED BACK AND STATED THAT DELMA/SUTURES MAY BE REMOVED 2 WEEKS AFTER SURGERY. CAN BE REMOVED ON 11/21/18. WILL PASS ON IN REPORT
--- NOTE | 2018-11-20 18:17 | NUR ---
PT VSS THIS SHIFT, PAIN WELL MANAGED, PT STILL REFUSING BOWEL MEDS AND LAST BM WAS ON 11/15/18. PT TOLERATING DIET, STILL HAS SOA WITH LAYING BACK IN BED AND INCREASED ACTIVITY AND IS STILL ON 3L O2 PER NC THIS SHIFT. PT EDUCATED MULTIPLE TIMES THIS SHIFT TO BREATHE IN THROUGH NOSE AND OUT THROUGH THE MOUTH. MD ORDERED IS FOR BREATHING EXERCISES. PT TO HAVE STITCHES/DELMA REMOVED TOMORROW 11/22/18 PER ORTHO ORDER. PT SANTOS REMOVED THIS SHIFT AND PT HAS URINATED ONCE SINCE THE SANTOS HAS BEEN REMOVED AND HER RESIDUAL WAS LESS THAN 250 SO IT DID NOT REQUIRE STRAIGHT CATH. PT STILL NEEDS 2 POST VOID RESIDUALS. HOURLY ROUNDING AND FALL PXN MAINTAINED THIS SHIFT.
[2018-11-20 20:00] VITALS: BP 137/81
--- NOTE | 2018-11-21 06:03 | NUR ---
ALERT AND ORIENTED. PLEASANT. O2 3L NC. NWB RLE WITH HINGED BRACE IN PLACE. DRSG INTACT. PAIN MEDS GIVEN NEEDED FOR RIGHT LEG PAIN. MIN ASSIST WITH GAIT BELT AND WALKER. HOPS ON LLE INTO BATHROOM. NEEDS ASSIST WITH DRESSING. GETS SOA WITH EXERTION. VOIDED TWICE, FIRST AMOUNT 850 CC WITH PVR 161 CC. THEN VOIDED 900 CC WITH PVR OF 0 CC. SLEPT OFF AND ON. CALL LIGHT IN REACH AND BED ALARM ON.
[2018-11-21 08:43] VITALS: BP 107/69
--- NOTE | 2018-11-21 14:24 | NUR ---
PATIENT ALERT AND ORIENTED X 4, SITTING IN WHEELCHAIR. PARTICIPATING IN THERAPY. ORDER TO REMOVE DELMA. WILL DO THIS AFTER PATIENT HAS COMPLETED HER THERAPIES FOR THE DAY.
--- NOTE | 2018-11-21 16:34 | NUR ---
FRANSICO and Dr Garcia met with pt to review team conference summary and plan for pt to dc on Monday; pt was hopeful to be able to go home sooner but understood that pt needed more time to work on managing stairs safely. Pt will dc with pt cousin to assist. SW to continue to follow to assist with safe dc planning.
--- NOTE | 2018-11-21 20:05 | NUR ---
SITTING UP IN BED WATCHING TV. FLEXERIL GIVEN. RIGHT LEG BRACE INTACT. CM WRAP UNDER BRACE DRY/INTACT. CALL LIGHT WITHIN REACH. 02 NC AT 3 LITERS.
[2018-11-21 20:10] VITALS: BP 136/86
--- NOTE | 2018-11-22 05:42 | NUR ---
UP X ONE DURING THE NIGHT TO THE BATHROOM TO VOID. TRANSFERS WITH SBA, GAITBELT, WALKER, NON WEIGHT BEARING TO RIGHT LOWER EXTREMITY. DOES OWN HYGIENE AND CLOTHING ADJUSTMENTS. GAVE TRAMADOL AT 2138 AND 0135 FOR COMPLAINT OF RIGHT LEG PAIN WITH RELIEF. GAVE TYLENOL PER REQUEST AT 0537 FOR COMPLAINT OF RIGHT LEG PAIN. WILL CONTINUE TO MONITOR. HOURLY ROUNDING IN PROGRESS.
[2018-11-22 07:47] VITALS: BP 140/93
[2018-11-22 07:49] VITALS: BP 106/71; BP 140/93
--- NOTE | 2018-11-22 10:42 | NUR ---
AM ASSESSMENT AND VITAL SIGNS COMPLETED DOCUMENTED. PT HAS BEEN PLEASANT AND COOPERATIVE, COMPLAINS ONLY OF BEING SHORT OF AIR WITH ACTIVITY. PT HAS COPD AND PULMONARY FIBROSIS AND IS O2 DEPENDENT. PT IS CURRENTLY ON PREDNISONE. PT TRANSFERS WITH A WALKER AND MIN ASSIST, COMPLIANT WITH NON WEIGHT BEARING STATUS TO THE RIGHT LEG. FALL PRECAUTIONS AND HOURLY ROUNDING CONTINUE.
--- NOTE | 2018-11-22 15:19 | NUR ---
FRANSICO received message from Evangelina this morning regarding following up with pt son Lenny to discuss safe dc planning. SW called and spoke with Lenny who was at pt home installing grab bars, stair railing, and other safeguards in the pt home. Pt son Lenny plans to be on vacation starting tomorrow and pt son was concerned with making sure pt would be ready and safe to return home on Monday with all needs met ie equipment and HH services. SW reviewed team conference summary and explained pt would not qualify for wc due to pt able to walk 75 feet with front wheeled walker and Medicare would only cover if pt needed wc for household distances. SW recommended possibly renting wc when needed for the community. SW discussed team recommending family training with pt cousin and also mentioned HH services will be arranged, also provided option of SNF if needed at dc or after dc within 30 day window. Pt son understanding and did not have any other questions or concerns at this time. SW met with pt and discussed above information as well and pt has resources/list of possible rental wc agencies and SW will provide HH options as needed prior to dc. Pt said that pt cousin is aware of family training recommendation and pt said that pt cousin plans to be available to work with therapies either tomorrow or Monday. SW to continue to follow to assist with safe dc planning.
[2018-11-22 19:45] VITALS: BP 136/87
--- NOTE | 2018-11-23 01:11 | NUR ---
ASSUMED CARE @ 191-11/22-.AWAKE IN BED W/ O2 @ 3L/NC.HOB UP.LONG LEG IMMOBILIZER IN PLACE RIGHT LE.SBA FOR ALL TRANSFERS & TOILETING.NWB RIGHT LE OBSERVED.WEARS PULL UPS.WANTS HOB W/ 2 PILLOWS.RIGHT LE UP ON A PILLOW.WANTS ONLY SIDERAILS X2 UP.WANTS BATHROOM LIGHT ON ALL NIGHT.BED ALARM PUT ON @ 1919.SEE PAIN MAnagements @ 2004 & 2147.EDEMA-+1 PITTING ANKLES & FEET.SON VISITED @ 2320 FOR A SHORT TIME.PRN FLEXERIL GIVEN @ 0007-PER PT'S REQUEST.ON HOURLY ROUNDS.
--- NOTE | 2018-11-23 06:28 | NUR ---
SLEPT LATE @ 2233,0200 TO 0400.AWAKE MOST OF TIME FROM 2300 TO 0100 & 0500. BRP W/ SBA X2.REFUSED HS SNACK.SEE 2ND PAIN MANAGEMENT @ 0532.
[2018-11-23 08:00] VITALS: BP 112/66
--- NOTE | 2018-11-23 15:25 | NUR ---
ASSUMMED CARE OF PT AT 0730, PT ALERT AND ORIENTED, TRANSFERS WITH GB WALKER, MAINTAINS NWB STATUS, BRACE TO RIGHT LEG INTACT, PT COMPLAINS OF SOA, O2 ON AT 3 LITERS, PT REQUESTING PRN BREATHING TREATMENT X2 THIS SHIFT, TAKING FOOD AND FLUIDS WELL, AMBULATES TO BATHROOM TO VOID, VOID IN LARGE AMOUNTS, SWELLING NOTED TO LEFT ANKLE THIS AM, LEG ELEVATED AND SWELLING REDUCED THIS PM, PT REQUESTED MUSCLE RELAXANT THIS PM, PARTICIPATED IN ALL THERAPIES, HOURLY ROUNDING COMPLETED, ASSESSMENT COMPLETE, WILL CONTINUE TO MONITOR.
[2018-11-23 19:55] VITALS: BP 110/68
--- NOTE | 2018-11-24 04:05 | NUR ---
ASSUMED CARE @ 1919-11/23-MON.AWAKE IN BED WATCHING TV W/ O2 @ 3L/NC.RLE IMMOBILIZER IN PLACE.BED ALARM ON ALREADY @ 1919.SEE PAIN MANAGEMENTS @ 2016 & 2217.PRN FLEXERIL 10 MG ORAL GIVEN @ 2132-PER PT'S REQUEST.REQUESTED CM BANDAGE RIGHT LE TO BE READJUSTED @ 2224 & DONE.SBA FOR ALL TRANSFERS & TOILETING.NWB RIGHT LE OBSERVED.EDEMA-+1 PITTING ANKLES & FEET.
--- NOTE | 2018-11-24 05:11 | NUR ---
SLEEPING SINCE -11/24-SAT.BRP W/ SBA X2.REFUSED HS SNACK.WEARS PULL UPS.
[2018-11-24 08:00] VITALS: BP 106/72
--- NOTE | 2018-11-24 16:51 | NUR ---
ASSUMMED CARE OF PT AT 0730, PT ALERT AND ORIENTED, PT TRANSFERS WITH SBA, GB WALKER, MAINTAINS NWB STATUS TO RIGHT LEG, COMPLAINS OF PAIN, MEDICATED PER ORDER, DRESSING C/D/I, CM AND BRACE TO RIGHT LEG, CXR COMPLETED PER ORDER, PT C/O SOA WITH ACTIVITY, O2 SAT 96% ON 3 L, AMBULATES TO BATHROOM TO VOID, PARTICIPATED IN ALL THERAPIES, HOURLY ROUNDING COMPLETED, ASSESSMENT COMPLETE, WILL CONTINUE TO MONITOR.
[2018-11-24 20:00] VITALS: BP 115/67
--- NOTE | 2018-11-25 05:21 | NUR ---
ASSUMED CARE AT 1920. ALERT AND ORIENTED, PLEASANT. ON O2 3L NC. RLE HINGED BRACE. MIN ASSIST WITH GAIT BELT AND WALKER. UP TO BATHROOM. DOES GET SOA WITH EXERTION. PAIN MEDS GIVEN NEEDED FOR RIGHT LEG PAIN. SLEPT MOST OF THE NIGHT. CALL LIGHT IN REACH AND BED ALARM ON.
[2018-11-25 08:00] VITALS: BP 118/59
--- NOTE | 2018-11-25 16:56 | NUR ---
ASSUMMED CARE OF PT AT 0730, PT ALERT AND ORIENTED, TRANSFERS WITH SBA, GB WALKER, MAINTAINING NWB STATUS TO RIGHT LEG, BRACE INTACT, DRESSING OVER SUTURES SITES FOR PADDING UNDER BRACE, COMPLAINED OF PAIN IN RIGHT LEG, MEDICATED PER ORDER, REQUESTING ADDITIONAL BREATHING TREATMENT X 2 THIS SHIFT, STATES BECOMES SOA AFTER RETURNING FROM BATHROOM, STATES OBTAINS GD RELIEF WITH RT TREATMENTS, O2 ON AT 3L WITH SATS OF 94-97%, TAKING FOOD AND FLUIDS WELL, VOIDS PER TOILET, DID GROOMING STANDING AT SINK, CHANGED CLOTHING WITH SET UP ASSIST, HOURLY ROUNDING COMPLETED, ASSESSMENT COMPLETE.
[2018-11-25 19:00] VITALS: BP 114/68
--- NOTE | 2018-11-26 05:37 | NUR ---
ASSUMED CARE AT 1920. ALERT AND ORIENTED. PLEASANT. O2 3L NC. NWB RLE WITH HINGED BRACE. SBA WITH GAIT BELT AND WALKER. UP TO BATHROOM. DOES OWN CARES. PAIN MEDS GIVEN NEEDED FOR RIGHT LEG. SLEPT MOST OF THE NIGHT. CALL LIGHT IN REACH AND BED ALARM ON.
[2018-11-26 08:34] VITALS: BP 106/65
--- NOTE | 2018-11-26 16:55 | NUR ---
ASSUMED CARE AT 0730. ALERT ORIENTED PLEASANT COOPERATIVE. HX OF FX RT. FEMUR WEARS HINGED BRACE RT. LEG NWBRLE. AMBULATES WITH WALKER O2 ON AT 3L/M PER N/C CONTINOUSLY HX OF COPD ASTHMA AND PULMONARY FIBROSIS. PARTICIPATING IN THERAPIES THROUGHOUT THE DAY. MEDICATED X 1 WITH PRN IBUPROFEN THIS AFTERNOON RT. LEG. PARTICIPATING IN THERAPIES. DOES HAVE SOA WITH EXERTION REQUESTS R.T. TXS REQUSTED NEEDED AND PRN. USES CALL LIGHT APPROPRIATELY FOR ASSISTANCE. TAKES MEDS WITHOUT DIFFICULTY AND FEEDS SELF.
--- NOTE | 2018-11-26 17:39 | NUR ---
Pt to dc home tomorrow with cousin assistance and HH services. SW met with pt to confirm pt HH choice; pt preference for [facility]. SW/data recovery planner to fax referral and orders to [facility] tomorrow at dc when available. Pt in agreement with plan and excited to be able to dc home tomorrow. [facility] ph [phone] fax [phone]
[2018-11-26 20:41] VITALS: BP 102/61
--- NOTE | 2018-11-27 05:45 | NUR ---
ASSUMED CARES AT 1920. ALERT AND ORIENTED. PLEASANT. O2 3L NC. PAIN MEDS GIVEN FOR RIGHT LEG. NWB RLE WITH HINGED BRACE INPLACE. DRESSINGS INTACT. BEEN HAVING INCREASED EDEMA 1-2+ TO LEFT LEG/FEET BUT DOES IMPROVE BY MORNING. SBA WITH GAIT BELT AND WALKER. UP TO BATHROOM. DOES OWN CARES. SLEPT OFF AND ON. CALL LIGHT IN REACH.
[2018-11-27 08:00] VITALS: BP 109/58
[2018-11-27] MEDS ORDERED: TRAMADOL 50 MG50 MG PO (11:43)
[2018-11-27] MEDS ORDERED: GABAPENTIN 100100 MG PO (11:44)
[2018-11-27] MEDS ORDERED: FLEXERIL PO (11:45)
[2018-11-27 11:55] VITALS: BP 109/58
--- NOTE | 2018-11-27 12:23 | NUR ---
PLANT ETIOLOGIST ARRANGED HH PER CM PREVIOUS NOTE WITH [facility]. D/C PROCESS ARTIST CONTACTED [facility] TO INFORM OF THE HH REFERRAL AND FAXED THE PATIENT'S FACESHEET, H&P, AND D/C ORDERS TO [facility]. CM WILL REMAIN AVAILABLE TO ASSIST AND FOLLOW NEEDED.
--- NOTE | 2018-11-27 12:26 | NUR ---
COLLECTION SYSTEMS TECHNICIAN SPOKE TO LUIS WITH [facility] AND JOSE WITH [facility] TO F/U ON THE REFERRLS SENT BY PREVIOUS CM FOR SKILLED. [facility] DECLINED THE PATIENT SHE APPEARS TOO COMPLEX, AND ARE CONCERNED ABOUT THE PATIENTS TUBE FEEDING. LUIS INFORMS THAT LEONOR WOULD COME TO THE HOSPITAL TO DO AN ON-SITE VISIT WITH THE PATIENT. LEONOR VISITED WITH THE PATIENT AND INFORMS THAT HER ONLY CONCERNS ARE IN REGARDS TO THE TYPE OF TUBE FEEDING THAT THE PATIENT IS ON AND THE TYPE OF FEEDING TUBE (CHANA-PAIGE BUTTON), THEY DO NOT HAVE THAT IN-STOCK AT THE FACILITY. NURSING AT [facility] REQUEST THAT THE FACILITY PROVIDE THE PATIENT WITH ENOUGH GLUCERNA 1.2 TO LAST THE PATIENT UNTIL MONDAY. [facility] ALSO REQUEST THAT THE PATIENT BE SENT WITH AN EXTRA CHANA-PAIGE EXTENSION SET IT WOULD NEED TO BE ON-HAND IN CASE OF AN EMERGENCY. D/C FIELD IRRIGATION WORKER ATTEMPTED TO ENCOURAGE [facility] TO ACCEPT THE PATIENT TODAY WE COULD HAVE ALL OF THE REQUEST ITEMS BROUGHT TO THE FACILITY TOMORROW. LEONOR INFORMS THAT THE D.O.N. DID NOT FEEL COMFORTABLE ACCPTING THE PATIENT TODAY WITHOUT ALL OF THE ITEMS REQUETED, BUT WOULD BE GLAD TO ACCEPT THE PATIENT TOMORROW WHEN THE ITEMS REQUESTED WERE AVAILABLE. D/C FIELD IRRIGATION WORKER INFORMED NURSING AND CAITLIN'S SON CARLOS OF THIS INFO. CARLOS INFORMS THAT HE WANTED [facility] SKILLED AND DID NOT WANT [facility]. CARLOS AND HIS SIG OTHER REQUEST THAT A REFERRAL BE SENT TO [facility]. D/C FIELD IRRIGATION WORKER SPOKE TO [facility] TO INFORM OF THE REFERRAL AND FAXED PATIENT'S SKILLED REFERRAL. CM WILL REMAIN AVAILABLE TO ASSIST AND FOLLOW NEEDED.
--- NOTE | 2018-11-27 14:14 | NUR ---
ASSUMMED CARE OF PT AT 0730, PT ALERT AND ORIENTED, TRANSFERS WITH ASSIST OF 1 GB WALKER, AMBULATES TO BATHROOM TO VOID, TAKING FOOD AND FLUIDS WELL, STATES PAIN IS MUCH BETTER TODAY, NO NEED FOR PAIN MEDICATION, DRESSING ON RIGHT HIP INCISIONS FOR PTORTECTIONS AND PADDING, CM TO LEG, AND BRACE ON, MAINTAINING NWB TO RIGHT LEG,PARTICIPATED IN ALL THERAPIES, HOURLY ROUNDING COMPLETED, ASSESSMENT COMPLETE, ORDERS OBTAINED FOR DISCHARGE, PT INSTRUCTED ON MEDICATIONS, FOLLOW UP APPTS, WHEN TO CALL PHYSICIAN, HOME HEALTH, FALL PRECAUTIONS, DISCHARGED TO MAIN ENTRANCE WITH BELONGING PER PHYSICAL THERAPIST.
== END 2018-11-27 14:30 | disposition home health service (06) | DRG 533 ==
LOC: M.REH 13:43
PROVIDERS: Family Medicine; ADMIT Physical Medicine & Rehabilitation
DX: S72.91XA Unspecified fracture of right femur, initial encounter for closed fracture (principal); J96.20 Acute and chronic respiratory failure, unspecified whether with hypoxia or hypercapnia; D62 Acute posthemorrhagic anemia; E87.1 Hypo-osmolality and hyponatremia; I10 Essential (primary) hypertension; W18.39XA Other fall on same level, initial encounter; Z96.641 Presence of right artificial hip joint; R33.9 Retention of urine, unspecified; F17.210 Nicotine dependence, cigarettes, uncomplicated; J44.9 Chronic obstructive pulmonary disease, unspecified; J84.10 Pulmonary fibrosis, unspecified; F17.200 Nicotine dependence, unspecified, uncomplicated; Z88.8 Allergy status to other drugs, medicaments and biological substances; Z88.6 Allergy status to analgesic agent; Z88.1 Allergy status to other antibiotic agents; Z79.1 Long term (current) use of non-steroidal anti-inflammatories (NSAID); Z79.899 Other long term (current) drug therapy; Y93.89 Activity, other specified; Y92.89 Other specified places as the place of occurrence of the external cause; Y99.8 Other external cause status

== ENCOUNTER → 2018-12-11 | Outpatient (CLI) | payer MEDICARE, MEDICAID ==
[~2018-12-11] MED LIST changes: +BROVANA15 MCG/2 M INH; +ENOXAPARIN40 MG/0.1 SUBQ; +FLEXERIL PO; +GABAPENTIN 100100 MG PO; +OXYCODONE HCL 55 MG PO
== END ==
LOC: M.LAB 13:08
DX: S72.401D Unspecified fracture of lower end of right femur, subsequent encounter for closed fracture with routine healing (principal); M97.01XD Periprosthetic fracture around internal prosthetic right hip joint, subsequent encounter; E55.9 Vitamin D deficiency, unspecified; X58.XXXD Exposure to other specified factors, subsequent encounter; Z88.8 Allergy status to other drugs, medicaments and biological substances

== ENCOUNTER → 2019-01-08 | Outpatient (CLI) | payer MEDICARE, MEDICAID | LOC: M.LAB 12:39 | DX: E55.9 Vitamin D deficiency, unspecified (principal); Z79.899 Other long term (current) drug therapy ==

== ENCOUNTER → 2019-05-28 | Outpatient (CLI) | payer MEDICARE, MEDICAID ==
[2019-05-28 12:04] LABS: HEMATOCRIT 38.1 % (37.0-47.0); HEMOGLOBIN 12.9 gm/dL (12.0-15.0); MCH 27.5 pg (26.0-34.0); MCHC 33.8 g/dL (28.0-37.0); MCV 81.5 fL (80.0-100.0); MPV 8.1 fl. (7.2-11.1); NUCLEATED RBCS 0 /100WBC; PLATELET COUNT* 298 thou/uL (150-400); RBC 4.67 mil/uL (4.20-5.00); RDW-CV 14.1 % (10.5-14.5); WBC 12.3 thou/uL (4.0-11.0)
[2019-05-28 12:17] LABS: ALBUMIN 3.8 g/dL (3.4-5.0); CREATININE 0.9 mg/dL (0.6-1.3); POTASSIUM 3.5 mmol/L (3.5-5.1); TOTAL BILIRUBIN 0.3 mg/dL (<0.1-1.0); TOTAL PROTEIN 6.7 g/dL (6.4-8.2)
[2019-05-28 12:45] LABS: ABSOLUTE BASOPHILS 0.1 thou/uL (0.0-0.2); ABSOLUTE LYMPHOCYTES 0.7 thou/uL (0.8-5.3); ABSOLUTE MONOCYTES 0.2 thou/uL (0.0-1.2); ABSOLUTE NEUTROPHILS 11.2 thou/uL (1.6-8.1); PLATELET ESTIMATE ADEQUATE
[2019-05-29 02:10] LABS: GLYCOHEMOGLOBIN (HGB A1C) 5.7 % (4.8-5.6)
== END ==
LOC: M.LAB 11:45
PROVIDERS: Orthopaedic Surgery
DX: S72.491D Other fracture of lower end of right femur, subsequent encounter for closed fracture with routine healing (principal); I10 Essential (primary) hypertension; Z79.899 Other long term (current) drug therapy; X58.XXXD Exposure to other specified factors, subsequent encounter

== ENCOUNTER 2019-12-29 17:45 | Emergency (ER) | payer MEDICARE, MEDICAID ==
[~2019-12-29] VITALS: Ht 157.5 cm; Wt 54.4 kg
[2019-12-29] MEDS ORDERED: LASIX 40 MG TAB40 MG PO (17:59)
[2019-12-29] MEDS ORDERED: MAGNESIUM250 M1 PO (17:59)
[2019-12-29 18:24] LABS: INFLUENZA A ANTIGEN Negative (Negative); INFLUENZA B ANTIGEN Negative (Negative)
[2019-12-29 18:43] LABS: HEMATOCRIT 43.4 % (37.0-47.0); HEMOGLOBIN 14.7 gm/dL (12.0-15.0); MCH 29.1 pg (26.0-34.0); MCHC 33.9 g/dL (28.0-37.0); MPV 8.2 fl. (7.2-11.1); NUCLEATED RBCS 0 /100WBC; PLATELET COUNT* 327 thou/uL (150-400); RBC 5.04 mil/uL (4.20-5.00); RDW-CV 14.6 % (10.5-14.5); WBC 16.8 thou/uL (4.0-11.0)
[2019-12-29 18:51] LABS: CALCIUM 8.5 mg/dL (8.5-10.1); CREATININE 0.9 mg/dL (0.6-1.3); POTASSIUM 3.8 mmol/L (3.5-5.1)
[2019-12-29 18:54] LABS: APTT 22.1 Seconds (25.0-31.3)
[2019-12-29 19:02] LABS: ALBUMIN 3.8 g/dL (3.4-5.0); TOTAL BILIRUBIN 0.5 mg/dL (<0.1-1.0); TOTAL PROTEIN 6.7 g/dL (6.4-8.2)
[2019-12-29 19:12] LABS: ABSOLUTE EOSINOPHILS 0.3 thou/uL (0.0-0.7); ABSOLUTE LYMPHOCYTES 1.7 thou/uL (0.8-5.3); ABSOLUTE MONOCYTES 0.7 thou/uL (0.0-1.2); ABSOLUTE NEUTROPHILS 14.1 thou/uL (1.6-8.1)
[2019-12-29 19:13] LABS: ANISOCYTOSIS Occasional; PLATELET ESTIMATE ADEQUATE
[2019-12-29 19:18] LABS: BE 4.4 mmol/L (-2 to +3); PCO2 44.4 mmHg (35.0-45.0); PO2 64.2 mmHg (75.0-100.0); pH 7.437 (7.340-7.450)
[2019-12-29] MEDS ORDERED: PREDNISONE 20 M20 MG PO (19:38)
[2019-12-29 19:54] VITALS: BP 110/89
--- NOTE | 2019-12-30 09:33 | EKG ---
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: : 1950 Requested By: Ellis Person Order Number: [id number] MD: Gerhard Rock Measurements Intervals [place] Rate: 99 P: 82 CT: 126 QRS: 83 QRSD: 104 T: 37 QT: 352 QTc: 452 Interpretive Statements Sinus rhythm early transition Consider left atrial enlargement Borderline right axis deviation Low voltage, extremity leads Artifact in lead(s) I,II,aVR,V4 Compared to ECG 11/17/2018 07:09:05 No significant changes Electronically Signed On 12-30-2019 9:33:03 CDT by Gerhard Rock [email or web address] <ELECTRONICALLY SIGNED> By: Gerhard Rock MD, FACC 12/30/19 0933 1755 1755 Gerhard Rock MD, FAC /EPI
== END 2019-12-29 19:56 | disposition home or self-care (01) ==
LOC: M.ERS 17:45
PROVIDERS: Nurse Practitioner Psychiatric/Mental Health
DX: J44.1 Chronic obstructive pulmonary disease with (acute) exacerbation (principal); E87.1 Hypo-osmolality and hyponatremia; R60.9 Edema, unspecified; I10 Essential (primary) hypertension; J45.909 Unspecified asthma, uncomplicated; Z20.828 Contact with and (suspected) exposure to other viral communicable diseases; Z98.51 Tubal ligation status; Z96.651 Presence of right artificial knee joint; Z86.2 Personal history of diseases of the blood and blood-forming organs and certain disorders involving the immune mechanism; Z88.1 Allergy status to other antibiotic agents; Z88.6 Allergy status to analgesic agent; Z88.8 Allergy status to other drugs, medicaments and biological substances

== ENCOUNTER 2020-01-02 13:42 | Inpatient (IN) | payer MEDICARE, MEDICAID ==
[~2020-01-02] VITALS: Ht 157.5 cm; Wt 72.5 kg
[~2020-01-02 13:42] MED LIST changes: +LASIX 40 MG TAB40 MG PO; +MAGNESIUM250 M1 PO; +PREDNISONE 20 M20 MG PO
[2020-01-02 13:53] VITALS: BP 128/66
[2020-01-02 14:07] LABS: HEMATOCRIT 41.5 % (37.0-47.0); HEMOGLOBIN 14.1 gm/dL (12.0-15.0); MCH 29.2 pg (26.0-34.0); MCV 85.8 fL (80.0-100.0); MPV 7.8 fl. (7.2-11.1); NUCLEATED RBCS 0 /100WBC; PLATELET COUNT* 270 thou/uL (150-400); RBC 4.84 mil/uL (4.20-5.00); RDW-CV 14.1 % (10.5-14.5)
[2020-01-02 14:16] LABS: CALCIUM 8.2 mg/dL (8.5-10.1); CREATININE 0.7 mg/dL (0.6-1.3); POTASSIUM 3.8 mmol/L (3.5-5.1)
[2020-01-02 14:23] LABS: APTT 21.7 Seconds (25.0-31.3); PROTIME 9.9 Seconds (9.20-11.50)
[2020-01-02 14:26] LABS: ALBUMIN 3.3 g/dL (3.4-5.0); TOTAL BILIRUBIN 0.9 mg/dL (<0.1-1.0); TOTAL PROTEIN 6.3 g/dL (6.4-8.2)
[2020-01-02 14:36] LABS: BE 3.6 mmol/L (-2 to +3); PCO2 37.3 mmHg (35.0-45.0); PO2 80.2 mmHg (75.0-100.0); pH 7.479 (7.340-7.450)
[2020-01-02 14:39] LABS: ABSOLUTE LYMPHOCYTES 1.4 thou/uL (0.8-5.3); ABSOLUTE MONOCYTES 0.8 thou/uL (0.0-1.2); ABSOLUTE NEUTROPHILS 25.8 thou/uL (1.6-8.1); PLATELET ESTIMATE ADEQUATE
[2020-01-02 16:03] VITALS: BP 111/71
[2020-01-02] MEDS ORDERED: VITAMIN D3125 MC2 PO (16:44)
[2020-01-02] MEDS ORDERED: PROAIR HFA8.5 GM INH (16:45)
--- NOTE | 2020-01-02 18:42 | NUR ---
PT ADMITTED TO ROOM 205 FROM ED WITH RF. PT WAS SEEN IN ED YESTERDAY AND DCD HOME FROM ED.PT IS AOX4 ABLE TO ANSWER QUESTIONS APPROPRIATELY. VSS ON 2L NC.AFEBRILE. PT WEARS 2L O/N. ANTIBIOTIC GIVEN.MEDICATIONS RECONCILED. ASESSMENT DOCUMENTED. PT EDUCATED ON FALL PRECAUTIONS, MEDICATIONS, PLAN OF CARE, TREATMENTS,DIET AND ACTIVITY. CLWR.WCTM
[2020-01-02 20:10] VITALS: BP 120/78
[2020-01-03] VITALS (7 sets, daily range): BP systolic 109–146; BP diastolic 77–83
[2020-01-03 05:27] LABS: HEMATOCRIT 40.3 % (37.0-47.0); HEMOGLOBIN 13.6 gm/dL (12.0-15.0); MCH 29.3 pg (26.0-34.0); MCHC 33.9 g/dL (28.0-37.0); MCV 86.5 fL (80.0-100.0); MPV 8.5 fl. (7.2-11.1); RBC 4.65 mil/uL (4.20-5.00); RDW-CV 13.8 % (10.5-14.5); WBC 35.8 thou/uL (4.0-11.0)
[2020-01-03 05:43] LABS: ALBUMIN 2.8 g/dL (3.4-5.0); CALCIUM 7.9 mg/dL (8.5-10.1); CREATININE 0.8 mg/dL (0.6-1.3); POTASSIUM 3.4 mmol/L (3.5-5.1); TOTAL BILIRUBIN 0.6 mg/dL (<0.1-1.0)
--- NOTE | 2020-01-03 08:09 | NUR ---
PT CARE ASSUMED AT 1930. SAT MAINTAINED IN O2. PT IS ANXIOUS. ALERT AND ORIENTED X4. SOB AT REST. C/O PAIN, MEDICATION GIVEN PER EMAR. CALL LIGHT WITHIN REACH AND BED IN LOW POSITION. HOURLY ROUNDING DONE FOR PT SAFETY.
--- NOTE | 2020-01-03 10:28 | EKG ---
[place] [address] ELECTROCARDIOGRAM REPORT Name: YOLI ZAVALA Room: [address] ADM IN .R.#: [id number] Admission: 01/02/20 Attend Phys: Loraine Horner, Discharge: Date of : 52 Date of Service: 01/02/20 1348 Report #: [id number] THIS REPORT FOR: //name// [facility] ED Test Date: 2020-01-02 Test Time: 13:48:58 Pat Name: YOLI ZAVALA Department: Room: 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 : 1950 Requested By: Michael Alvarado Order Number: [id number] MD: Chaitanya Lopez Measurements Intervals [place] Rate: 101 P: -21 ID: 90 QRS: 84 QRSD: 102 T: 4 QT: 324 QTc: 420 Interpretive Statements Sinus tachycardia Inferior infarct, old possible Artifact in lead(s) I,II,III,aVR,aVL,V3,V5,V6 Compared to ECG 12/29/2019 17:55:53 Myocardial infarct finding now possible Electronically Signed On 01-03-2020 10:28:03 CDT by Chaitanya Lopez [email or web address] <ELECTRONICALLY SIGNED> By: Chaitanya Lopez MD, [facility] 01/03/20 1028 1348 1348 Chaitanya Lopez MD, [facility] /EPI
--- NOTE | 2020-01-03 13:20 | 2DMMODE ---
[place] [address] 2 D/M-MODE ECHOCARDIOGRAM Name: YOLI ZAVALA Room: [facility] [place] .R.#: [id number] Admission: 01/02/20 Attend Phys: Loraine Horner, Discharge: Date of : 52 Date of Service: 01/03/20 1320 Report #: [id number] THIS REPORT FOR: cc: Catherine Durham Stephanie P. DO Holkins, John M. MD [facility] ~ APPROVED REPORT Study performed: 01/03/2020 10:51:30 EXAM: Comprehensive 2D, Doppler, and color-flow Echocardiogram Patient Location: In-Patient Room #: [facility] Status: routine BSA: 1.53 HR: 84 bpm BP: 122/77 mmHg Rhythm: NSR Other Information Study Quality: Good Indications assess for CHF 2D Dimensions IVSd: 6.81 (7-11mm) LVOT Diam: 18.21 (18-24mm) LVDd: 39.47 mm PWd: 7.44 (7-11mm) LVDs: 23.46 (25-40mm) Aortic Root: 29.58 mm Aortic Valve AoV Peak Chris.: 1.65 m/s AO Peak Gr.: 10.89 mmHg LVOT Max P.10 mmHg AO Mean Gr.: 5.60 mmHg LVOT Mean P.90 mmHg LVOT Max V: 1.59 m/s AO V2 VTI: 25.22 cm LVOT Mean V: 1.02 m/s ANASTASIA (VTI): 2.77 cm2 LVOT V1 VTI: 26.80 cm Mitral Valve E/A Ratio: 0.76 MV Decel. Time: 244.49 ms MV E Max Chris.: 0.66 m/[place] [address] 2 D/M-MODE ECHOCARDIOGRAM Name: YOLI ZAVALA Room: [address] [place] .R.#: [id number] Admission: 01/02/20 Attend Phys: Loraine Horner, Discharge: Date of : 52 Date of Service: 01/03/20 1320 Report #: [id number] MV PHT: 70.90 ms MVA (PHT): 3.10 cm2 TDI E/Lateral E': 7.33 E/Medial E': 9.43 Medial E' Chris.: 0.07 m/s Lateral E' Chris.: 0.09 m/s Pulmonary Valve PV Peak Chris.: 1.34 m/s PV Peak Gr.: 7.13 mmHg Left Ventricle The left ventricle is normal size. There is normal LV segmental wall motion. There is normal left ventricular wall thickness. Left ventricular systolic function is normal. The left ventricular ejection fraction is within the normal range. LVEF is 65%. Grade I - abnormal relaxation pattern. Right Ventricle The right ventricle is normal size. The right ventricular systolic function is normal. Atria The left atrium size is normal. The right atrium size is normal. Aortic Valve The aortic valve is normal in structure. No aortic regurgitation is present. There is no aortic valvular stenosis. Mitral Valve The mitral valve is normal in structure. There is no mitral valve regurgitation noted. No evidence of mitral valve stenosis. Tricuspid Valve The tricuspid valve is normal in structure. Unable to assess PA pressure. Trace tricuspid regurgitation. Pulmonic Valve The pulmonary valve is normal in structure. There is no pulmonic valvular regurgitation. Great Vessels The aortic root is normal in size. IVC is normal in size and collapses >50% [place] [address] 2 D/M-MODE ECHOCARDIOGRAM Name: YOLI ZAVALA Room: [address] IN [facility]#: [id number] Admission: 01/02/20 Attend Phys: Loraine Horner, Discharge: Date of : 52 Date of Service: 01/03/20 1320 Report #: [id number] Pericardium There is no pericardial effusion. <Conclusion> The left ventricle is normal size. There is normal left ventricular wall thickness. Left ventricular systolic function is normal. The left ventricular ejection fraction is within the normal range. LVEF is 65%. Grade I - abnormal relaxation pattern. The right ventricle is normal size. The left atrium size is normal. The aortic valve is normal in structure. The mitral valve is normal in structure. The tricuspid valve is normal in structure. IVC is normal in size and collapses >50% with inspiration. There is no pericardial effusion. There is normal LV segmental wall motion. <ELECTRONICALLY SIGNED> By: Chaitanya Lopez MD, FACC 01/03/20 1320 1320 132 Chaitanya Lopez MD, FACC /INF
--- NOTE | 2020-01-03 13:45 | NUR ---
Pt is A&O. Resides at home alone. Independent. Pt has a walker and cane, but does not currently use either. Pt wears 3L of o2, states that since November, she has been wearing it continous, it's provided through [facility] [facility] [employer]. Pt also has an [employer]. Hx of [facility]. No hx of SNF. Goal is home at nd, no needs anticipated.
--- NOTE | 2020-01-03 16:38 | NUR ---
ASSUMED CARE OF PATIENT THIS AM AT 0730. PATIENT IS ALERT AND ORIENTED X 4. SHE C/O PAIN TO HER LEFT RIB AREA THIS AM. TELE SHOWS NSR. DANIELLE IS TO DD. PATIENT C/O SOA WITH MININAL ACTIVITY. O2 HAS BEEN AT 4 LITERS NC. PATIENT MEDICATED FOR PAIN. ENCOURAGED TO TCDB. O2 SAT 93%. WILL CONTINUE TO MONITR PATIENT COMFORT.
--- NOTE | 2020-01-03 16:58 | NUR ---
ASSUMED CARE OF PATIENT THIS AM AT 0730. PATIENT IS ALERT AND ORIENTED X 4. SHE C/O PAIN WITH MOVEMENT TO HER LEFT RIB PAIN. TELE SHOWS NSR. PATIENT MEDICATED FOR PAIN PO AND LIDOCAINE PATCH CHANGED. PATIENT ENCOURAGED TO TCDB. DANIELLE TO DD. O2 WAS AT 3.5 LITERS THIS AM. PATIENT HAD A EPISODE OF SOA. O2 INCREASED TO 4 LITERS. SATS HAVE BEEN 93% AFTER INCREASE. PATIENT IS RESTING AT THIS TIME.
[2020-01-04 00:22] VITALS: BP 117/78
[2020-01-04 04:24] VITALS: BP 105/68
[2020-01-04 04:46] LABS: HEMATOCRIT 39.6 % (37.0-47.0); HEMOGLOBIN 13.5 gm/dL (12.0-15.0); MCH 29.1 pg (26.0-34.0); MCV 85.6 fL (80.0-100.0); RBC 4.63 mil/uL (4.20-5.00); RDW-CV 14.1 % (10.5-14.5); WBC 32.9 thou/uL (4.0-11.0)
[2020-01-04 05:03] LABS: ALBUMIN 2.3 g/dL (3.4-5.0); CREATININE 0.8 mg/dL (0.6-1.3); MAGNESIUM 2.1 mg/dL (1.8-2.4); POTASSIUM 3.7 mmol/L (3.5-5.1); TOTAL BILIRUBIN 0.4 mg/dL (<0.1-1.0); TOTAL PROTEIN 5.8 g/dL (6.4-8.2)
--- NOTE | 2020-01-04 05:57 | NUR ---
PT ALERT AND ORIENTED X4. SOB AT REST. C/O PAIN, MEDICATION GIVEN PER EMAR. CALL LIGHT WITHIN REACH AND BED IN LOW POSITION. HOURLY ROUNIDNG DONE FOR PT SAFETY.
[2020-01-04 08:00] VITALS: BP 140/82
[2020-01-04 12:02] VITALS: BP 117/69
--- NOTE | 2020-01-04 16:57 | NUR ---
PT BECOMING INCREASING SOA AND INCREASE WORK OF BREATHING. TALK TO DR. AGUILAR AND DR. ROLDAN. AND ORDER ABG,BIPAP, AND IV LORAZEPAM. RT TO PLACE PT ON BIPAP AND DRAW ABG. WILL CONTINUE TO ASSESS.
[2020-01-04 17:12] VITALS: BP 129/84
[2020-01-04 18:01] LABS: PCO2 37.9 mmHg (35.0-45.0); PO2 77.5 mmHg (75.0-100.0); pH 7.452 (7.340-7.450)
[2020-01-04 20:00] VITALS: BP 110/68
[2020-01-05 00:26] VITALS: BP 112/81
[2020-01-05 04:30] VITALS: BP 128/83
[2020-01-05 04:30] LABS: ABSOLUTE BASOPHILS 0.2 thou/uL (0.0-0.2); ABSOLUTE LYMPHOCYTES 0.3 thou/uL (0.8-5.3); ABSOLUTE MONOCYTES 1.4 thou/uL (0.0-1.2); ABSOLUTE NEUTROPHILS 29.6 thou/uL (1.6-8.1); BASOPHILS 0.8 %; HEMATOCRIT 40.7 % (37.0-47.0); HEMOGLOBIN 13.9 gm/dL (12.0-15.0); LYMPHOCYTES 0.9 %; MCHC 34.1 g/dL (28.0-37.0); MCV 85.1 fL (80.0-100.0); MONOCYTES 4.4 %; MPV 8.3 fl. (7.2-11.1); NUCLEATED RBCS 0 /100WBC; PLATELET COUNT* 237 thou/uL (150-400); POLYS 93.9 %; RBC 4.79 mil/uL (4.20-5.00); RDW-CV 13.9 % (10.5-14.5); WBC 31.6 thou/uL (4.0-11.0)
[2020-01-05 08:00] VITALS: BP 156/94
--- NOTE | 2020-01-05 08:05 | NUR ---
PT CARE ASSUMED AT 1930. SAT DROPPED TO 88% IN 5L O2, TITRATED TO 6L HFC. PT IS ANXIOUS, SOB PRESENT AT REST, RR INCREASED. MEDICATION GIVEN TO HELP PT RELAX. RT KEPT PT ON BIPAP. PT SEEMED TO BE RELAX AFTER MEDICATION. C/O PAIN, MEDICATION GIVEN PER EMAR. CALL LIGHT WITHIN REACH AND BED IN LOW POSITION. HOURLY ROUNDING DONE FOR PT SAFETY.
[2020-01-05 12:00] VITALS: BP 111/85
[2020-01-05 16:00] VITALS: BP 116/72
[2020-01-05 20:00] VITALS: BP 134/83
[2020-01-06] VITALS (45 sets, daily range): BP systolic 76–190; BP diastolic 51–103
[2020-01-06 04:16] LABS: HEMATOCRIT 40.9 % (37.0-47.0); MCH 29.1 pg (26.0-34.0); MCHC 34.3 g/dL (28.0-37.0); MCV 85.1 fL (80.0-100.0); MPV 8.3 fl. (7.2-11.1); RBC 4.8 mil/uL (4.20-5.00); WBC 27.1 thou/uL (4.0-11.0)
[2020-01-06 04:40] LABS: ALBUMIN 1.8 g/dL (3.4-5.0); CALCIUM 8.8 mg/dL (8.5-10.1); CREATININE 0.9 mg/dL (0.6-1.3); MAGNESIUM 2.4 mg/dL (1.8-2.4); POTASSIUM 5.2 mmol/L (3.5-5.1); TOTAL BILIRUBIN 0.5 mg/dL (<0.1-1.0); TOTAL PROTEIN 6.1 g/dL (6.4-8.2)
[2020-01-06 09:11] LABS: BE -4.4 mmol/L (-2 to +3); PCO2 45.9 mmHg (35.0-45.0); pH 7.302 (7.340-7.450)
[2020-01-06 09:20] LABS: CALCIUM 9.3 mg/dL (8.5-10.1); CREATININE 1.5 mg/dL (0.6-1.3); POTASSIUM 5.7 mmol/L (3.5-5.1)
--- NOTE | 2020-01-06 09:48 | NUR ---
Rapid response called. Pt transferred to ICU5
[2020-01-06 10:54] LABS: BE -5.3 mmol/L (-2 to +3); PO2 103.5 mmHg (75.0-100.0)
[2020-01-06 10:56] LABS: PCO2 79.7 mmHg (35.0-45.0); pH 7.135 (7.340-7.450)
--- NOTE | 2020-01-06 11:41 | NUR ---
RIGHT BASILICE VESSEL [id number] FOR 5 KAZAKH TRIPLE LUMEN PICC. LINE PRE-TRIMMED TO 36CM AND ADVANCED TO THE ZERO MARY WITH NO RESISTANCE MET. UPPER ARM CIRCUMFERENCE ABOVE INSERTION SITE= 11 1/2". SHERLOCK MAGNET AND 3CG CONFIRMATION OF TIP TERMINATION AT THE CAVOATRIAL JUNCTION APPRECIATED. GUIDE WIRE REMOVED LINE FLUSHED AND INSERTION SITE DRESSED. REORT GIVEN TO CATY ESCALERA.
--- NOTE | 2020-01-06 11:51 | NUR ---
ASSUMED CARE OF PATIENT AROUND 0700, ORIENTED BY SLEEPING- ANXIOUS, ON BIPAP BUT BOTHERED BY MACHINE, COMPLAINTS OF SOA, GAVE 0.5 IV ATIVAN, SATS STAYED 90 T0 91% ON BIPAP DISPITE DISTRESS. RESPIRATORY CHECKED ON PATIENT AND REQUESTED A RAPID RESPONSE, AIRWAY ESTABLISHED, CALLED, TRANSFERRED PATIENT TO ICU, REPORT GIVEN TO LALI RAGSDALE. PT HYPERTENSIVE AND TACHY IN THE AM PRIOR TO ICU TRANSFER. IV MORPHINE-2MG GIVEN PRIOR TO TRANSFER
[2020-01-06 13:00] LABS: CALCIUM 8.4 mg/dL (8.5-10.1); CREATININE 1.2 mg/dL (0.6-1.3); POTASSIUM 5.3 mmol/L (3.5-5.1)
[2020-01-06 13:38] LABS: BE -3.9 mmol/L (-2 to +3); PO2 97.8 mmHg (75.0-100.0)
[2020-01-06 13:41] LABS: pH 7.285 (7.340-7.450)
[2020-01-06 15:55] LABS: CALCIUM 7.6 mg/dL (8.5-10.1); CREATININE 1.1 mg/dL (0.6-1.3); POTASSIUM 4.9 mmol/L (3.5-5.1)
--- NOTE | 2020-01-06 18:43 | NUR ---
ASSUMED CARE OF PT @ 0930.RECEIVED BEDSIDE REPORT FROM LALI HERNANDEZ.PT REMAINS INTUBATED PER ORDERED SETTINGS.SEDATED ON FENTANYL PER TITRATION PROTOCOL.ISOLATION MAINTAINED UNTIL COVID RESULTS.NEW PICC LINE INSERTED BY PICC NURSE.OG PLACED @ 65 WITH LIS.SPUTUM,UA,AND MRSA SWAB COLLECTED.FAMILY UPDATED ON PT CONDITION THROUGHOUT THE SHIFT.FALL PRECAUTIONS IN PLACE.WILL CONTINUE TO MONITOR FOR DURATION OF SHIFT.
[2020-01-06 23:31] LABS: CALCIUM 7.8 mg/dL (8.5-10.1); CREATININE 0.9 mg/dL (0.6-1.3); POTASSIUM 4.6 mmol/L (3.5-5.1)
[2020-01-07] VITALS (53 sets, daily range): BP systolic 75–129; BP diastolic 40–79
[2020-01-07 04:28] LABS: HEMATOCRIT 37.3 % (37.0-47.0); HEMOGLOBIN 12.8 gm/dL (12.0-15.0); MCH 29.1 pg (26.0-34.0); MCHC 34.2 g/dL (28.0-37.0); MCV 85.2 fL (80.0-100.0); MPV 8.3 fl. (7.2-11.1); RBC 4.38 mil/uL (4.20-5.00); RDW-CV 14.1 % (10.5-14.5); WBC 23.2 thou/uL (4.0-11.0)
--- NOTE | 2020-01-07 04:36 | NUR ---
ASSUMED CARE AT 1900H, ON VENT AT 80% AND TOLERATED. SEEN ON BED WITH FENTANYL DRIP AT 75MICS. PT WAS TRASHING ON SOMETIMES SPECIALLY WHEN SUCTIONED. NOTED WITH LARGE YELLOWISH FROTHY SECRETION FROM ET TUBE. FENTANYL UP UNTILL 100MICS AND PRN VERSED GIVEN. KEPT SAFE AND RESTRAINED. SISTER(WILTON) CALLED AND UPDATE GIVEN. CONTINUE MONITORING AND TOWARD GOALS.
[2020-01-07 04:55] LABS: BE -2.8 mmol/L (-2 to +3); PO2 93.6 mmHg (75.0-100.0)
[2020-01-07 04:57] LABS: pH 7.252 (7.340-7.450)
[2020-01-07 04:58] LABS: PCO2 60.6 mmHg (35.0-45.0)
[2020-01-07 05:00] LABS: CREATININE 0.8 mg/dL (0.6-1.3); MAGNESIUM 2.4 mg/dL (1.8-2.4)
[2020-01-07 09:30] LABS: BE -0.4 mmol/L (-2 to +3); PCO2 38.2 mmHg (35.0-45.0); PO2 102.1 mmHg (75.0-100.0); pH 7.415 (7.340-7.450)
--- NOTE | 2020-01-07 11:30 | NUR ---
LT RADIAL ART LINE INSERTED BY DR PINEDO.
--- NOTE | 2020-01-07 14:57 | NUR ---
ICU rounds: Intubated and sedated. Covid pending. Abg's not good this morning. On precedex and fentanyl gtts. Art line in. Chest CT today. Start TF
[2020-01-07 15:12] LABS: PCO2 46.6 mmHg (35.0-45.0); PO2 87.4 mmHg (75.0-100.0); pH 7.317 (7.340-7.450)
[2020-01-07 15:21] LABS: CALCIUM 8.1 mg/dL (8.5-10.1); CREATININE 0.9 mg/dL (0.6-1.3); POTASSIUM 4.8 mmol/L (3.5-5.1)
[2020-01-07 18:03] LABS: PCO2 46.5 mmHg (35.0-45.0); PO2 84.3 mmHg (75.0-100.0); pH 7.347 (7.340-7.450)
--- NOTE | 2020-01-07 19:17 | NUR ---
VENT SETTINGS CHANGED PER ORDERS, PEEP UPTP 10. PRECEDEX DRIP ADDED FOR SEDATION, BOTH FENTANYL AND PRECEDEX MAXED PT WAS OVERBREATHING THE VENT. ATIVAN GIVEN PER TUBE AND VERSED PUSHES TWO TIMES THIS SHIFT. LEVOPHED STARTED TO MAINTAIN MAP >65, TITRATED PER PROTOCOL. TUBE FEEDINGS STARTED AND TOLERATING WELL. Q2 TURNS AND ORAL CARE GIVEN. FAMILY UPDATED.
[2020-01-08] VITALS (23 sets, daily range): BP systolic 83–151; BP diastolic 47–75
--- NOTE | 2020-01-08 04:27 | NUR ---
ASSUMED CARE AT 1900H, ON VENT AT 80% AND SEDATION OF FENTANYL AND PRCEDEX, BOTH AT MAX DOSE. PT WAS MODERATE TO LIGHT SEDATED. UPDATE GIVEN TO CATALINA). LEVO DRIP STOP AT 0100H. NO HYPOTENTION NOTED. FEEDING TOLERATED. NO DISTRESS NOTED. STILL WITH MODERATE TO LARGE THICK YELLOWISH SECRETION FROM ET TUBE. CONTINUE MONITORING AND TOWARD GOALS.
[2020-01-08 05:41] LABS: HEMATOCRIT 31.5 % (37.0-47.0); MCH 28.7 pg (26.0-34.0); MCHC 33.8 g/dL (28.0-37.0); MCV 84.7 fL (80.0-100.0); NUCLEATED RBCS 0 /100WBC; PLATELET COUNT* 115 thou/uL (150-400); RBC 3.71 mil/uL (4.20-5.00); RDW-CV 14.2 % (10.5-14.5); WBC 23.7 thou/uL (4.0-11.0)
[2020-01-08 05:57] LABS: ALBUMIN 2.5 g/dL (3.4-5.0); CALCIUM 7.9 mg/dL (8.5-10.1); CREATININE 0.9 mg/dL (0.6-1.3); MAGNESIUM 2.8 mg/dL (1.8-2.4); POTASSIUM 4.9 mmol/L (3.5-5.1); TOTAL BILIRUBIN 0.5 mg/dL (<0.1-1.0); TOTAL PROTEIN 5.8 g/dL (6.4-8.2)
[2020-01-08 06:33] LABS: HEMOGLOBIN 10.6 gm/dL (12.0-15.0)
[2020-01-08 08:08] LABS: ABSOLUTE LYMPHOCYTES 0.5 thou/uL (0.8-5.3); ABSOLUTE MONOCYTES 0.2 thou/uL (0.0-1.2); ATYPICAL LYMPHS 1 %; METAMYELOCYTES 1 %; PLATELET ESTIMATE ADEQUATE
[2020-01-08 08:28] LABS: BE -0.2 mmol/L (-2 to +3)
--- NOTE | 2020-01-08 16:04 | NUR ---
ICU rounds: Pt remains vented and sedated. On 40% FIO2. Pt on 3 IVABX. Pt having a lot of secretions. Covid pending. Off pressor. BP ok. Tube feeds
--- NOTE | 2020-01-08 18:40 | NUR ---
VENT SUPP CONTD, FIO2 DOWN TO 50%, SEDATED WITH FENTANYL AND PRECEDEX, MAXED ON BOTH THE WHOLE DAY, VERSED PUSHES x3 TO KEEP RASS AT -2. TOLERATING TUBE FEEDS BUT PERSISTENT ABD DISTENSION. DULCOLAX SUPP, REGLAN AND RELISTOR GIVEN PER ORDERS. Q2 TURNS AND ORAL CARE DONE. LARGE THICK SECRETIONS SUCTIONED FROM ET TUBE. VSS. ART LINE REDRESSED AND IN PLACE.
[2020-01-09] VITALS (65 sets, daily range): BP systolic 113–154; BP diastolic 60–83
--- NOTE | 2020-01-09 04:15 | NUR ---
ASSUMED CARE AT 1900H, ON VENT AT 50% AND TOLERATED. SEEN ON BED SEDATED WITH FENTANYL AND PRECEDEX AT MAX DOSE. PT WAS RESTLESS AT TIMES WHEN SUCTIONED AND TURNED TO SIDE. PRN VERSED GIVEN. NO DISTRESS AND NO FEVER. PT ABD DISTENTION INCREASED, HELD FEEDING AND CONNECTED TO LIS. AIR SUCTION FROM OG. CONTINUE MONITORING AND TOWARD GOALS. ABD DISTENTION DECREASED.
[2020-01-09 05:50] LABS: ABSOLUTE LYMPHOCYTES 0.2 thou/uL (0.8-5.3); ABSOLUTE MONOCYTES 0.5 thou/uL (0.0-1.2); BASOPHILS 0.2 %; EOSINOPHILS 0.1 %; HEMATOCRIT 30.5 % (37.0-47.0); HEMOGLOBIN 10.5 gm/dL (12.0-15.0); LYMPHOCYTES 0.8 %; MCH 29.2 pg (26.0-34.0); MCHC 34.5 g/dL (28.0-37.0); MCV 84.7 fL (80.0-100.0); MONOCYTES 2.3 %; MPV 8.5 fl. (7.2-11.1); NUCLEATED RBCS 0 /100WBC; PLATELET COUNT* 75 thou/uL (150-400); POLYS 96.6 %; RDW-CV 14.3 % (10.5-14.5); WBC 21.7 thou/uL (4.0-11.0)
[2020-01-09 06:21] LABS: CALCIUM 7.7 mg/dL (8.5-10.1); CREATININE 0.7 mg/dL (0.6-1.3); MAGNESIUM 2.9 mg/dL (1.8-2.4); POTASSIUM 4.8 mmol/L (3.5-5.1); TOTAL BILIRUBIN 0.4 mg/dL (<0.1-1.0); TOTAL PROTEIN 5.4 g/dL (6.4-8.2)
[2020-01-09 08:21] LABS: BE 0.2 mmol/L (-2 to +3); PCO2 34.3 mmHg (35.0-45.0); PO2 65.5 mmHg (75.0-100.0); pH 7.457 (7.340-7.450)
--- NOTE | 2020-01-09 13:59 | NUR ---
ICU rounds: Remains on vent and sedated, plan to titrate sedation. Fio2 down to 40%, rate 14. Covid pending.
[2020-01-09 14:47] LABS: BE -0.2 mmol/L (-2 to +3); PCO2 38.3 mmHg (35.0-45.0); PO2 79.8 mmHg (75.0-100.0); pH 7.418 (7.340-7.450)
--- NOTE | 2020-01-09 19:00 | NUR ---
COVID RESULTS STATUS CHECKED WITH BOOM FROM LAB, STATED THEY DON'T HAVE ANY PENDING SWABS FOR COVID. DR LYNN NOTIFIED. PT SWABBED AGAIN @1845. ENHANCED PRECAUTIONS IN PLACE.
--- NOTE | 2020-01-09 19:47 | NUR ---
VENT SETTINGS UNCHANGED THROUGHOUT THE DAY, TOLERATED WELL. MODERATE AMOUNT OF SECRETIONS FROM ET, YELLOWISH BROWN IN COLOR. TUBE FEEDINGS RESUMED PER DR LYNN. PRN LAXATIVES GIVEN. Q2 TURNS AND ORAL CARE PROVIDED. DORCAS UPDATED OVER THE PHONE.
[2020-01-10] VITALS (30 sets, daily range): BP systolic 102–144; BP diastolic 61–88
[2020-01-10 06:59] LABS: HEMATOCRIT 33.2 % (37.0-47.0); HEMOGLOBIN 11.3 gm/dL (12.0-15.0); MCH 29.1 pg (26.0-34.0); MCV 85.7 fL (80.0-100.0); MPV 8.4 fl. (7.2-11.1); NUCLEATED RBCS 0 /100WBC; RBC 3.88 mil/uL (4.20-5.00); RDW-CV 14.7 % (10.5-14.5); WBC 23.5 thou/uL (4.0-11.0)
[2020-01-10 07:06] LABS: ALBUMIN 1.9 g/dL (3.4-5.0); CALCIUM 8.2 mg/dL (8.5-10.1); CREATININE 0.9 mg/dL (0.6-1.3); MAGNESIUM 2.6 mg/dL (1.8-2.4); PLATELET COUNT* 48 thou/uL (150-400); POTASSIUM 4.5 mmol/L (3.5-5.1); TOTAL BILIRUBIN 0.5 mg/dL (<0.1-1.0); TOTAL PROTEIN 5.2 g/dL (6.4-8.2)
--- NOTE | 2020-01-10 07:56 | NUR ---
ASSUMED PATIENT CARE AT 1900. ASSESSMENTS COMPLETED CHARTED. CARDIAC MONITORING IN PLACE. PATIENT SEDATION TITRATED FOR RASS OF -1. Q2 TURNS FOR SKIN INTEGRITY AND COMFORT. BED LOCKED AND IN LOWEST POSITION. FALL PRECAUTIONS IN PLACE FOR PATIENT SAFETY.
[2020-01-10 08:39] LABS: PCO2 40.5 mmHg (35.0-45.0); pH 7.432 (7.340-7.450)
[2020-01-10 08:48] LABS: ABSOLUTE LYMPHOCYTES 0.7 thou/uL (0.8-5.3); ABSOLUTE NEUTROPHILS 22.8 thou/uL (1.6-8.1); PLATELET ESTIMATE DECREASED
--- NOTE | 2020-01-10 09:58 | NUR ---
0730 ASSUMED CARE OF PATIENT. PLEASE SEE DOCUMENTED ASESSMENT. DR MIRANDA TO SEE PATIENT. PATIENT BECOMES VERY UPSET AND THRASHING WITH TURNS,ORAL CARE.
--- NOTE | 2020-01-10 10:40 | NUR ---
PATIENT HAS BEEN AGITATED AND THRASHING AT INTERVALS. HAVE SUCTIONED FOR THICK SECRETIONS AND MEDICATED FOR PAIN. PROPOFOL CHARTED
[2020-01-10 13:38] LABS: APTT 21.3 Seconds (25.0-31.3); INR 1.1
--- NOTE | 2020-01-10 13:51 | NUR ---
PT BECAME AGITATED WITH TURNING AT NOON AND HAD DESATURATION WITH THIS. DR LYNN HERE AND ORDERS NOTED. CONSULTS CALLED.
[2020-01-10 14:41] LABS: BE 0.6 mmol/L (-2 to +3); PCO2 39.3 mmHg (35.0-45.0); pH 7.421 (7.340-7.450)
[2020-01-10 14:48] LABS: PO2 138.7 mmHg (75.0-100.0)
--- NOTE | 2020-01-10 15:02 | NUR ---
ICU rounds: Covid pending. Remains on vent and sedated. Tube feeds
--- NOTE | 2020-01-10 18:42 | NUR ---
PATIENT NOT PROGRESSING TOWARDS GOALS. HAS REQUIRED INCREASING SEDATION TODAY AND IS NOW ON 55% FIO2 WITH PRECEDEX, PROPOFOL, AND FENTANYL CONTINUOUS FOR SEDATION. TUBE FEEDINGS STOPPED BY SURGERY TO LET BOWEL REST.NO BOWEL MOVEMENT TODAY. REMAINS ON ENHANCED PRECAUTIONS PENDING TESTING. SPOKE WITH GRANDDAUGHTER ON TELEPHONE AND SHE IS AWARE OF LACK OF PROGRESS.
[2020-01-11] VITALS (50 sets, daily range): BP systolic 92–168; BP diastolic 56–90
[2020-01-11 04:52] LABS: ABSOLUTE BASOPHILS 0.1 thou/uL (0.0-0.2); ABSOLUTE EOSINOPHILS 0.1 thou/uL (0.0-0.7); ABSOLUTE LYMPHOCYTES 0.3 thou/uL (0.8-5.3); ABSOLUTE MONOCYTES 0.2 thou/uL (0.0-1.2); ABSOLUTE NEUTROPHILS 20.5 thou/uL (1.6-8.1); BASOPHILS 0.3 %; EOSINOPHILS 0.6 %; HEMATOCRIT 31.1 % (37.0-47.0); HEMOGLOBIN 10.6 gm/dL (12.0-15.0); LYMPHOCYTES 1.2 %; MCH 29.3 pg (26.0-34.0); MCHC 34.2 g/dL (28.0-37.0); MCV 85.6 fL (80.0-100.0); MONOCYTES 0.7 %; MPV 8.4 fl. (7.2-11.1); NUCLEATED RBCS 0 /100WBC; PLATELET COUNT* 53 thou/uL (150-400); POLYS 97.2 %; RBC 3.63 mil/uL (4.20-5.00); RDW-CV 14.4 % (10.5-14.5); WBC 21.1 thou/uL (4.0-11.0)
[2020-01-11 05:13] LABS: ALBUMIN 1.9 g/dL (3.4-5.0); CALCIUM 7.8 mg/dL (8.5-10.1); CREATININE 0.7 mg/dL (0.6-1.3); MAGNESIUM 2.4 mg/dL (1.8-2.4); POTASSIUM 4.9 mmol/L (3.5-5.1); TOTAL BILIRUBIN 0.5 mg/dL (<0.1-1.0)
[2020-01-11 05:14] LABS: PREALBUMIN 13.5 mg/dL (18.0-35.7)
--- NOTE | 2020-01-11 06:55 | NUR ---
RECEIVED REPORT AND ASSUMED CARE AT 1900. VSS. ICU MONITORING IN PLACE. ASSESSMENT COMPLETED CHARTED. BED LOCKED IN LOWEST POSITION, BED ALARM ON. POSITION CHANGED EVERY TWO HOURS. HEELS OFF LOADED. PT MOVES ALL EXTREMITIES, BUT NOT TO COMMANDS. WITHDRAWALS FROM TOUCH/CARE. ROUNDING COMPLETED AND ALL NEEDS MET.
--- NOTE | 2020-01-11 19:00 | NUR ---
PT REMAINS INTUBATED PER ORDERED SETTIGNS.SEDATED ON PROPFOL,FENANTYL, AND PRECEDEX PER TITRATION PROTOCOL.JEVITY 1.5 TRICKLE FEEDS STARTED PER ORDERS.PT HAS HAD LOOSE BM X5-FECAL MANAGEMENT SYSTEM INITIATED DUE TO SKIN BREAKDOWN.PT COVID NEGATIVE-REMOVED FROM ISOLATION PER ORDERS.WILL CONTINUE TO MONITOR.
[2020-01-12] VITALS (75 sets, daily range): BP systolic 78–178; BP diastolic 50–92
[2020-01-12 04:36] LABS: BE 3.9 mmol/L (-2 to +3); PCO2 41.4 mmHg (35.0-45.0); PO2 77.3 mmHg (75.0-100.0); pH 7.451 (7.340-7.450)
[2020-01-12 04:59] LABS: ABSOLUTE LYMPHOCYTES 0.4 thou/uL (0.8-5.3); ABSOLUTE MONOCYTES 0.7 thou/uL (0.0-1.2); ABSOLUTE NEUTROPHILS 21.9 thou/uL (1.6-8.1); BASOPHILS 0.2 %; HEMATOCRIT 30.9 % (37.0-47.0); HEMOGLOBIN 10.6 gm/dL (12.0-15.0); LYMPHOCYTES 1.9 %; MCH 29.4 pg (26.0-34.0); MCHC 34.4 g/dL (28.0-37.0); MCV 85.5 fL (80.0-100.0); MPV 8.4 fl. (7.2-11.1); NUCLEATED RBCS 0 /100WBC; PLATELET COUNT* 63 thou/uL (150-400); POLYS 94.9 %; RBC 3.61 mil/uL (4.20-5.00); RDW-CV 14.3 % (10.5-14.5)
[2020-01-12 05:02] LABS: INR 1.1; PROTIME 11.5 Seconds (9.20-11.50)
[2020-01-12 05:09] LABS: PREALBUMIN 17.3 mg/dL (18.0-35.7)
[2020-01-12 05:15] LABS: CALCIUM 7.9 mg/dL (8.5-10.1); CREATININE 0.8 mg/dL (0.6-1.3); MAGNESIUM 2.2 mg/dL (1.8-2.4); PHOSPHORUS* 3.7 mg/dL (2.5-4.9); POTASSIUM 4.8 mmol/L (3.5-5.1); TOTAL BILIRUBIN 0.6 mg/dL (<0.1-1.0); TOTAL PROTEIN 4.9 g/dL (6.4-8.2)
--- NOTE | 2020-01-12 08:22 | NUR ---
ASSESSMENTS CHARTED. PATIENT TOLERATING TRICKLE FEEDS WELL, BP REAMINING STABLE. REMAINS INTUBATED AND SEDATED ON VENTILATOR. NO SIGNIFICANT EVENTS THIS SHIFT. VSS. WCTM
--- NOTE | 2020-01-12 19:25 | NUR ---
PT REMAINS INTUBATED PER ORDERED SETTINGS.SEDATED WITH PROPOFOL,FENTANYL, AND PRECEDEX.PT HAS EPISODES OF RESTLESSNESS,BECOMES DIAPHORETIC, AND BP INCREASES-AFTER SUCTIONING PT CALMS DOWN.SCREENED SEPSIS POSITIVE-DR MIRANDA NOTIFIED.TUBE FEEDS TOLERATED @ GOAL OF 40ML/HR.GRANDDAUGHTER ANDERS VISITED AT THE BEDSIDE AND UPDATED ON PT CONDITION.CARROL IS DESIGNATED VISITOR FOR TOMORROW.WILL CONTINUE TO MONITOR.
--- NOTE | 2020-01-12 23:28 | NUR ---
ROUNDED ON PATIENT WITH DR. AGUILAR. ORDERS RECIEVED TO ADMINISTER LASIX AND ALBUMIN. BLOOD PRESSURE LOW 80'S/40'S, LASIX HELD BUT ALBUMIN ADMINISTERED. PATIENT'S BP CONTINUED TO DECLINE, NS BOLUS PER ICU PROTOCOL ADMINISTERED. BP STABLIZING AND RETURNING TO NORMAL LIMITS WITH MAP >65. WCTM
[2020-01-13] VITALS (75 sets, daily range): BP systolic 79–169; BP diastolic 52–90
[2020-01-13 04:46] LABS: BE 5.8 mmol/L (-2 to +3); PCO2 42.6 mmHg (35.0-45.0); PO2 68.1 mmHg (75.0-100.0); pH 7.467 (7.340-7.450)
[2020-01-13 04:51] LABS: ABSOLUTE LYMPHOCYTES 0.4 thou/uL (0.8-5.3); ABSOLUTE MONOCYTES 0.5 thou/uL (0.0-1.2); ABSOLUTE NEUTROPHILS 17.8 thou/uL (1.6-8.1); BASOPHILS 0.1 %; HEMATOCRIT 27.4 % (37.0-47.0); HEMOGLOBIN 9.4 gm/dL (12.0-15.0); LYMPHOCYTES 2.1 %; MCH 29.2 pg (26.0-34.0); MCHC 34.1 g/dL (28.0-37.0); MCV 85.5 fL (80.0-100.0); MONOCYTES 2.8 %; MPV 8.2 fl. (7.2-11.1); NUCLEATED RBCS 0 /100WBC; PLATELET COUNT* 64 thou/uL (150-400); RBC 3.21 mil/uL (4.20-5.00); RDW-CV 14.5 % (10.5-14.5); WBC 18.7 thou/uL (4.0-11.0)
[2020-01-13 05:03] LABS: INR 1.1; PROTIME 11.6 Seconds (9.20-11.50)
[2020-01-13 05:25] LABS: ALBUMIN 2.7 g/dL (3.4-5.0); CALCIUM 7.9 mg/dL (8.5-10.1); CREATININE 0.6 mg/dL (0.6-1.3); POTASSIUM 4.3 mmol/L (3.5-5.1); TOTAL BILIRUBIN 0.8 mg/dL (<0.1-1.0); TOTAL PROTEIN 5.2 g/dL (6.4-8.2)
--- NOTE | 2020-01-13 06:44 | NUR ---
ASSESSMENTS CHARTED. PATIENT REMAINS INTUBATED ON VENTILATOR, SEDATION WEANED DOWN. PROPOFOL INFUSING AT 5 MCG/KG/HR, FENTANYL AT 25 MCG/HR. PATIENT WILL AROUSE WHEN STIMULATED BUT DOES NOT FOLLOW COMMANDS. TUBE FEEDING INFUSING AT GOAL. NO OTHER SIGNIFICANT EVENTS THIS SHIFT. VSS.
--- NOTE | 2020-01-13 19:01 | NUR ---
PT REMAINS INTUBATED PER ORDERED SETTINGS.SEDATED ON PROPOFOL/FENTANYL/PRECEDEX PER TITRATION PROTOCOL.JEVITY 1.5 INFUSING PER ORDERS @ GOAL OF 50 WITH NO RESIDUALS.FECAL MANAGEMENT SYSTEM REMOVED AND STOOL SAMPLE SENT.ISOLATION INITATED FOR RULE OUT CDIFF.DAUGHTER CARROL VISITED AT BEDSIDE AND UPDATED ON PT CONDITION.DESIGNATED VISITOR FOR 01/14/20 IS YANDY.WILL CONTINUE TO MONITOR.
[2020-01-14] VITALS (49 sets, daily range): BP systolic 72–212; BP diastolic 47–102
[2020-01-14 04:48] LABS: ABSOLUTE LYMPHOCYTES 0.9 thou/uL (0.8-5.3); ABSOLUTE MONOCYTES 0.7 thou/uL (0.0-1.2); ABSOLUTE NEUTROPHILS 20.5 thou/uL (1.6-8.1); BASOPHILS 0.1 %; HEMATOCRIT 27.5 % (37.0-47.0); HEMOGLOBIN 9.5 gm/dL (12.0-15.0); LYMPHOCYTES 4.1 %; MCH 29.9 pg (26.0-34.0); MCHC 34.5 g/dL (28.0-37.0); MCV 86.5 fL (80.0-100.0); MONOCYTES 3.2 %; MPV 8.2 fl. (7.2-11.1); NUCLEATED RBCS 0 /100WBC; PLATELET COUNT* 90 thou/uL (150-400); POLYS 92.6 %; RBC 3.18 mil/uL (4.20-5.00); RDW-CV 14.2 % (10.5-14.5); WBC 22.1 thou/uL (4.0-11.0)
[2020-01-14 05:24] LABS: ALBUMIN 2.4 g/dL (3.4-5.0); CALCIUM 7.6 mg/dL (8.5-10.1); CREATININE 0.5 mg/dL (0.6-1.3); MAGNESIUM 2.2 mg/dL (1.8-2.4); POTASSIUM 4.4 mmol/L (3.5-5.1)
[2020-01-14 05:39] LABS: PHOSPHORUS* 2.5 mg/dL (2.5-4.9)
[2020-01-14 05:42] LABS: PREALBUMIN 21.5 mg/dL (18.0-35.7); TOTAL BILIRUBIN 0.5 mg/dL (<0.1-1.0); TOTAL PROTEIN 5.1 g/dL (6.4-8.2)
--- NOTE | 2020-01-14 07:34 | NUR ---
ASSESSMENTS CHARTED. REMAINS INTUBATED AND SEDATED ON VENTILATOR. PAITENT RESPONSED LESSENED COMPARED TO THE PAST NIGHTS. TUBE FEEDING INFUSING WITHOUT ISSUE. NO SIGNIFICANT EVENTS THIS SHIFT.
[2020-01-14 08:51] LABS: BE 3.4 mmol/L (-2 to +3); PCO2 41.7 mmHg (35.0-45.0); PO2 68.3 mmHg (75.0-100.0); pH 7.442 (7.340-7.450)
[2020-01-14 12:23] LABS: URINE BILIRUBIN NEGATIVE (Negative); URINE BLOOD NEGATIVE (Negative); URINE CLARITY CLEAR; URINE COLOR YELLOW; URINE GLUCOSE-RANDOM NEGATIVE (Negative); URINE KETONES NEGATIVE (Negative); URINE LEUKOCYTES-REFLEX TRACE (Negative); URINE NITRITE-REFLEX NEGATIVE (Negative); URINE PROTEIN NEGATIVE (Negative); URINE UROBILINOGEN 0.2 E.U./dl (0.2-1.0)
[2020-01-14 12:41] LABS: BACTERIA-REFLEX 1-9 Few /HPF (None Seen); CASTS None Seen /LPF (None Seen); CRYSTALS None Seen /LPF (None Seen); MUCUS None Seen strn/LPF (None Seen); SQUAMOUS 0-3 Few /LPF (0-3); TRANSITIONAL EPITHEL CELL 0-3 Few /LPF (None Seen); URINE RBC None Seen /HPF (0-2); URINE WBC-REFLEX 0-5 Rare /HPF (0-5)
--- NOTE | 2020-01-14 14:37 | NUR ---
ICU rounds: Intubated and sedated on vent. TF being held pending results of CT of chest and abd. Repeat cultures pending. Covid negative. Iso for pending cdiff. Low grade fever overnight.
--- NOTE | 2020-01-14 18:31 | NUR ---
SEDATION CHANGED TO VERSED DRIP, CURRENTLY ON VERSED AND FENTANYL DRIP WITH RASS -2. CT CHEST AND ABD DONE. VSS. TOLERATING TUBE FEEDS AT GOAL RATE, 50 MLS/HR. ISOLATION PRECAUTIONS MAINTAINED FOR C DIFF. Q2 TURNS AND ORAL CARE GIVEN.
[2020-01-15] VITALS (18 sets, daily range): BP systolic 91–122; BP diastolic 61–76
[2020-01-15 05:31] LABS: HEMOGLOBIN 10.4 gm/dL (12.0-15.0); MCHC 33.6 g/dL (28.0-37.0); MCV 86.4 fL (80.0-100.0); MPV 8.7 fl. (7.2-11.1); NUCLEATED RBCS 0 /100WBC; PLATELET COUNT* 100 thou/uL (150-400); RBC 3.59 mil/uL (4.20-5.00); RDW-CV 14.3 % (10.5-14.5); WBC 30.4 thou/uL (4.0-11.0)
[2020-01-15 05:56] LABS: ALBUMIN 2.3 g/dL (3.4-5.0); CALCIUM 7.5 mg/dL (8.5-10.1); CREATININE 0.6 mg/dL (0.6-1.3); MAGNESIUM 2.3 mg/dL (1.8-2.4); TOTAL BILIRUBIN 0.4 mg/dL (<0.1-1.0); TOTAL PROTEIN 5.3 g/dL (6.4-8.2)
[2020-01-15 06:06] LABS: PHOSPHORUS* 4.2 mg/dL (2.5-4.9)
[2020-01-15 06:29] LABS: ABSOLUTE LYMPHOCYTES 0.3 thou/uL (0.8-5.3); ABSOLUTE MONOCYTES 0.6 thou/uL (0.0-1.2); ABSOLUTE NEUTROPHILS 29.5 thou/uL (1.6-8.1); PLATELET ESTIMATE DECREASED
--- NOTE | 2020-01-15 06:52 | NUR ---
VITALS STABLE, AFEBRILE. PT REMAINS ON FENTANYL AND VERSED GTT. NO BM, TF REMAINS RUNNING AT GOAL OF 50 ML/HR WITH NO RESIDUALS. UOP 175CC. OTHERWISE UNEVENTFUL SHIFT. Q2 TURNS FOR SKIN INTEGRITY. REMAINS IN RESTRAINTS AND IN CONTACT PRECAUTIONS.
[2020-01-15 08:34] LABS: BE 3.4 mmol/L (-2 to +3); PCO2 48.4 mmHg (35.0-45.0); PO2 74.8 mmHg (75.0-100.0); pH 7.394 (7.340-7.450)
--- NOTE | 2020-01-15 13:55 | NUR ---
ICU rounds: On vent, intubated and sedated. Possible bronch in the morning, new abscess on lungs. Family meeting to be held regarding POC, Pt may need trach and peg pending discussion. IVABX. Surgery?
--- NOTE | 2020-01-15 20:04 | NUR ---
I ASSUMED CARE OF THE PATIENT AT 0715. SHE IS SEDATED AND POSITION IS CHANGED EVERY 2 HOURS. BED IS IN THE LOW LOCKED POSITION AND CALL LIGHT IS IN REACH. HOURLY ROUNDING IS COMPLETED AND PATIENT NEEDS ARE MET. PATIENT LOOKS COMFORTABLE. GRAND DAUGHTER VISITED FOR A WHILE TODAY. TUBE FEEDING IS CONTINUOUS AND MEDS ARE GIVEN VIA TUBE. ORAL CARE IS GIVEN. ISOLATION IS MAINTAINED. BRONCH IS SCHEDULED FOR TOMORROW AM AND FAMILY CONSENTED OVER THE PHONE. FAMILY WOULD LIKE TO HAVE A MEETING WITH DR. MIRANDA, DR. LYNN AND CASE MANAGEMENT ON MONDAY OR MONDAY. THEY WOULD LIKE TO DISCUSS PALIATIVE CARE VS EXTUBATION VS TRACH/PEG PLACEMENT. BLOOD SUGAR WAS MONITORED AND MAINTAINED. SHE IS TO BE NPO AT MIDNIGHT. WILL CONTINUE TO MONITOR.
[2020-01-16] VITALS (28 sets, daily range): BP systolic 87–127; BP diastolic 54–83
[2020-01-16 05:19] LABS: ABSOLUTE BASOPHILS 0.1 thou/uL (0.0-0.2); ABSOLUTE LYMPHOCYTES 0.4 thou/uL (0.8-5.3); ABSOLUTE MONOCYTES 0.5 thou/uL (0.0-1.2); ABSOLUTE NEUTROPHILS 35.7 thou/uL (1.6-8.1); BASOPHILS 0.2 %; HEMATOCRIT 30.1 % (37.0-47.0); HEMOGLOBIN 10.2 gm/dL (12.0-15.0); LYMPHOCYTES 1.2 %; MCH 29.3 pg (26.0-34.0); MCHC 33.8 g/dL (28.0-37.0); MCV 86.8 fL (80.0-100.0); MONOCYTES 1.2 %; MPV 8.9 fl. (7.2-11.1); NUCLEATED RBCS 0 /100WBC; PLATELET COUNT* 112 thou/uL (150-400); POLYS 97.4 %; RBC 3.46 mil/uL (4.20-5.00); RDW-CV 14.7 % (10.5-14.5); WBC 36.7 thou/uL (4.0-11.0)
[2020-01-16 05:23] LABS: ALBUMIN 2.1 g/dL (3.4-5.0); CALCIUM 7.9 mg/dL (8.5-10.1); CREATININE 0.6 mg/dL (0.6-1.3); TOTAL BILIRUBIN 0.4 mg/dL (<0.1-1.0); TOTAL PROTEIN 5.1 g/dL (6.4-8.2)
[2020-01-16 05:34] LABS: PREALBUMIN 26.6 mg/dL (18.0-35.7)
--- NOTE | 2020-01-16 05:37 | NUR ---
Vitals stable, temp max 99.1F. Remains on versed and fentanyl gtt. No BM, uop 150 cc. Npo since midnight. Q2 turns for skin integrity.
--- NOTE | 2020-01-16 15:26 | NUR ---
WOUND NURSE: PATIENT PROVIDED SINGLE LAYER TUBIGRIP TO RUE PRESCRIBED TO ASSIST WITH EDEMA CONTROL.
--- NOTE | 2020-01-16 16:13 | NUR ---
ICU rounds: Bronch today. Remains on vent. Son in room at bedside. Following.
--- NOTE | 2020-01-16 18:03 | NUR ---
PT REMAINS INTUBATED PER ORDERS SETTINGS.SEDATED WITH VERSED AND FENTANYL GTT.BRONCHOSCOPY COMPLETED THIS SHIFT WITH SPUTUM SAMPLES COLLECTED.JEVITY 1.5 TUBE FEEDS RESTARTED PER ORDERED SETTINGS.TUBE DEVOPS PLACED ON RIGHT ARM BY WOUND CARE FOR EDEMA.LEFT ARM TUBE SHREDDING MACHINE OPERATOR LEFT OFF DUR TO ART LINE.FAMILY WANTS A FAMILY MEETING WITH PHYSICIAN 01/17/20 AM.FAMILY INFORMED WHAT TIME PHYSICIAN TYPICALLY ROUNDS ON THE UNIT.LUMBER STACKER NOTIFIED.ISOLATION MAINTAINED FOR CDIFF.WILL CONTINUE TO MONITOR FOR DURATION OF SHIFT.
[2020-01-17] VITALS (28 sets, daily range): BP systolic 77–154; BP diastolic 47–80
--- NOTE | 2020-01-17 06:50 | NUR ---
VITALS STABLE, AFEBRILE. PT OFF VERSED GTT AND ON PRECEDEX AND FENTANYL GTT FOR COMFORT. 275 CC UOP, NO BM. TF ON HOLD FOR POSSIBLE WEANING TRIAL THIS AM. OTHERWISE UNEVENTFUL NIGHT. Q2 TURNS FOR SKIN INTEGRITY.
--- NOTE | 2020-01-17 09:00 | NUR ---
0035 ASSUMED CARE OF PATIENT. PATIENT ABLE TO NOD HEAD TO QUESTIONS AND FOLLOW COMMANDS. SEE DOCUMENTED ASSESSMENT.
[2020-01-17 09:37] LABS: ABSOLUTE LYMPHOCYTES 0.3 thou/uL (0.8-5.3); ABSOLUTE MONOCYTES 0.4 thou/uL (0.0-1.2); ABSOLUTE NEUTROPHILS 28.1 thou/uL (1.6-8.1); BASOPHILS 0.1 %; HEMATOCRIT 28.2 % (37.0-47.0); HEMOGLOBIN 9.4 gm/dL (12.0-15.0); LYMPHOCYTES 0.9 %; MCH 28.9 pg (26.0-34.0); MCHC 33.1 g/dL (28.0-37.0); MCV 87.4 fL (80.0-100.0); MONOCYTES 1.5 %; MPV 9.5 fl. (7.2-11.1); NUCLEATED RBCS 0 /100WBC; PLATELET COUNT* 113 thou/uL (150-400); POLYS 97.5 %; RBC 3.23 mil/uL (4.20-5.00); RDW-CV 14.6 % (10.5-14.5); WBC 28.8 thou/uL (4.0-11.0)
[2020-01-17 09:48] LABS: ALBUMIN 2.1 g/dL (3.4-5.0); CALCIUM 7.6 mg/dL (8.5-10.1); CREATININE 0.7 mg/dL (0.6-1.3); MAGNESIUM 2.5 mg/dL (1.8-2.4); POTASSIUM 4.9 mmol/L (3.5-5.1); TOTAL BILIRUBIN 0.3 mg/dL (<0.1-1.0); TOTAL PROTEIN 4.7 g/dL (6.4-8.2)
--- NOTE | 2020-01-17 14:54 | NUR ---
ICU rounds: Family here and met with hospitalist and pulm, plan to watch through the weekend, possible trach/peg early next week pending progress. CM spoke with Pt's dtr regarding rehab options, discussed ARU vs. SNF. Following.
--- NOTE | 2020-01-17 18:21 | NUR ---
PATIENT NOT PROGRESSING TOWARDS GOALS. FAILED WEANING TRIAL THIS AM DUE TO TACHYPNEA AND AGITIATION. HAVE BEEN ABLE TO LOWER FENTANYL. PT IS INTERACTIVE. ULTRASOUND REVEALED CLOT IN VEINS AND CT OF CHEST,NECK AND ABDOMEN WILL BE DONE TONIGHT. OK TO USE PICC. TUBE FEEDING TO BE HELD UNTIL AFTER CT. DAUGHTER WAS HERE TO VISIT AND PHYSICIANS SPOKE WITH FAMILY TODAY.
--- NOTE | 2020-01-17 20:26 | NUR ---
INITAL ASSESMENT COMPLETED AT 1930. PT INTUBATED AND SEDATED ON VENTILATOR. PT RECIEVING IV PRESIDEX AND FENTANYL DRIPS FOR SEDATION WHILE ON VENTILATOR. PT OFF PRESSORS WITH MAP > 65, MONITOR SHOWS SINUS RHYTHM. PT IN BILATERL SOFT WRIST RESTRAINTS TO MAINTAIN IV, ET TUBE, OG AND SANTOS CATHETER. BED ALARM ON, PT CLOSE TO NURSES STATION WITH FREQUENT OBSERVATION.
[2020-01-18] VITALS (57 sets, daily range): BP systolic 63–233; BP diastolic 38–147
--- NOTE | 2020-01-18 01:25 | NUR ---
=PT TAKEN TO CT AT 2315 AND RETURNED TO ICU AT 2350. PT RECIEVED ORAL CONTRAST PER OG PRIOR TO STUDY. IMAGING ORDERED DURING DAYSHIFT BUT SCHEDULED AT 2300 DUE TO LIMITED RESPIRATORY THERAPIST DURING DAY SHIFT. COMPLETE BATH DONE AT 0030. PT CONTINED ON SEDATION AND MECHANICAL VENTILATION. ARTERIAL LINE ZERO'D UPON ARRIVAL.
[2020-01-18 04:32] LABS: HEMATOCRIT 25.6 % (37.0-47.0); HEMOGLOBIN 8.7 gm/dL (12.0-15.0); MCH 29.3 pg (26.0-34.0); MCHC 34.1 g/dL (28.0-37.0); MCV 85.7 fL (80.0-100.0); MPV 8.6 fl. (7.2-11.1); NUCLEATED RBCS 0 /100WBC; PLATELET COUNT* 95 thou/uL (150-400); RBC 2.99 mil/uL (4.20-5.00); RDW-CV 14.5 % (10.5-14.5); WBC 20.3 thou/uL (4.0-11.0)
[2020-01-18 04:47] LABS: ALBUMIN 1.8 g/dL (3.4-5.0); CALCIUM 7.1 mg/dL (8.5-10.1); CREATININE 0.5 mg/dL (0.6-1.3); PHOSPHORUS* 2.9 mg/dL (2.5-4.9); POTASSIUM 4.3 mmol/L (3.5-5.1); TOTAL BILIRUBIN 0.5 mg/dL (<0.1-1.0); TOTAL PROTEIN 4.2 g/dL (6.4-8.2)
--- NOTE | 2020-01-18 06:23 | NUR ---
VENTTILATOR ALARMING THIS AM. PT BUCKING VENT. ADDITIONAL VERSED GIVEN IV PUSH. RT PAGED FOR ASSISTANCE. HME OCCLUDED FROM SECRETIONS. CHANGED PER RT. PT RESTING WITH OU CLOSED. RASS -1
[2020-01-18 07:00] LABS: ABSOLUTE MONOCYTES 0.4 thou/uL (0.0-1.2); ABSOLUTE NEUTROPHILS 18.9 thou/uL (1.6-8.1)
[2020-01-18 07:01] LABS: PLATELET ESTIMATE DECREASED
[2020-01-18 09:39] LABS: BE 1.1 mmol/L (-2 to +3); PCO2 46.1 mmHg (35.0-45.0)
[2020-01-18 09:42] LABS: PO2 48.6 mmHg (75.0-100.0)
[2020-01-18 11:36] LABS: BE -0.5 mmol/L (-2 to +3); PCO2 49.3 mmHg (35.0-45.0); pH 7.335 (7.340-7.450)
[2020-01-18 11:38] LABS: PO2 52.5 mmHg (75.0-100.0)
--- NOTE | 2020-01-18 15:48 | NUR ---
PATIENT IS TO TRANSFER TO [facility]. REPORT CALLED TO LALI HANDLEY. SISTER WILTON DISCUSSED CASE WITH DR KELLY AND AGREED TO TRANSFER.
--- NOTE | 2020-01-18 17:06 | NUR ---
PATIENT TRANSFERRED PER [facility] TO [facility].
--- NOTE | 2020-01-20 08:50 | PROC ---
[address] [address] PROCEDURE REPORT Name: FERMINAGYOLI RÍOS Room: [address]#: [id number] Admission: 01/02/20 Attend Phys: Loraine Horner MD Discharge: 01/18/20 Date of : 52 Report #: [id number] THIS REPORT FOR: //name// cc: Catherine Durham Stephanie P. DO THIS REPORT FOR: //name// CC: Loraine Durham DATE OF SERVICE: 01/16/2020 PROCEDURE PERFORMED: Bronchoscopy with bronchial washings. INDICATION FOR PROCEDURE: Pulmonary infiltrates with mucus plugging. POSTPROCEDURE DIAGNOSIS: Pulmonary infiltrates with mucus plugging. Lesser than expected quantities of mucus were noted. There are small amounts of hemorrhagic secretions as well. CONSENT: Informed consent was obtained from the patient's durable power of tire worker. I talked to her the day before the procedure. SEDATION: The patient required more than expected amounts of sedation, already was on Versed and fentanyl infusion. In several increments, I administered 3 mg of Versed and 200 mcg of fentanyl total as well. DESCRIPTION OF PROCEDURE: A lubricated bronchoscope was introduced into the trachea and then I proceeded to examining the entire right as well as left bronchial tree. Around 5 mL of 1% Xylocaine were instilled in the lower part of trachea as well as the onset of the right as well as left mainstem. We noticed some thick white and some brownish-colored mildly hemorrhagic secretions, more on the left side. These secretions were only small in amount and lesser in quantity than expected. There were no endobronchial lesions identified. Mucosa otherwise appeared unremarkable. I proceeded to performing bronchial washings. An estimated 35 mL of normal saline was instilled, primarily in the left upper lobe. The specimen collected also includes a smaller amount of secretions collected from the lingula as well as left lower lobe. They were also collected into 1 trap. I got back a return of around 20 mL. The specimen was sent to the laboratory [place] [address] PROCEDURE REPORT Name: YOLI ZAVALA Room: [address] [place] .R.#: [id number] Admission: 01/02/20 Attend Phys: Loraine Horner MD Discharge: 01/18/20 Date of : 52 Report #: [id number] The patient remained stable throughout the procedure and did not have any complications as a result of this procedure. <ELECTRONICALLY SIGNED> By: Joby Aranda MD 01/20/20 0850 1704 1836Aedel Aranda MD /nt
--- NOTE | 2020-01-20 17:07 | PATH ---
[address] [address] PATHOLOGY RPT PROCEDURE Name: YOLI ZAVALA Room: [address] IN [facility]#: [id number] Admission: 01/02/20 Date of : 52 Discharge: 01/18/20 Report #: [id number] Path Case #: [id number] Note [facility] Accession Number: [id number] TESTS RESULT FLAG UNITS REF RANGE LAB Clinician Provided Cytology Information No. of containers..01 Other (Miscellaneous) Source: 01 DEMARIO BW DIAGNOSIS: 02 DEMARIO WASHING NEGATIVE FOR MALIGNANT CELLS. FEW PULMONARY MACROPHAGES (DUST CELLS), BRONCHIAL EPITHELIAL CELLS AND INFLAMMATORY CELLS. (LUCILLE/db; 01/20/2020) Signed out by: 02 Jairon Griffith MD, Pathologist NPI- [id number] Performed by: 01 David Heller, Seo Manager ([facility]) Gross description: 01 15 ML, CLOUDY COLORLES, 1 TP /LCS 01/20/2020 1045 Local FLAG LEGEND: L-Low Normal,H-High Normal,LL-Alert Low,HH-Alert High <-Panic Low,>-Panic High,A-Abnormal,AA-Critical Abnormal Performed at: [address] [place] [address] Charlie Meyer MD, [address] [place] [address] [facility], [place] [address] Jairon Griffith MD, Specimen Comment: A courtesy copy of this report has been sent to [phone], [phone] Specimen Comment: [id number] Specimen Comment: Report sent to / DR RENDON Specimen Comment: A duplicate report has been generated due to demographic updates. Performed at: [address], [place], [place] [id number] MD Charlie Meyer MD Phone: [phone]
== END 2020-01-18 16:40 | disposition short-term general hospital (02) | DRG 870 ==
LOC: M.ERS 13:42 → M.2W 14:15 → M.ICU 14:15 → M.TBA-ER 14:15 → M.2W 15:40 → M.ICU 01-06 09:30
PROVIDERS: Family Medicine; Internal Medicine; Internal Medicine Critical Care Medicine; Internal Medicine Hematology & Oncology; Pediatrics; Surgery; ADMIT Internal Medicine; ATTEND Internal Medicine
PROC: 5A09357 Assistance with Respiratory Ventilation, Less than 24 Consecutive Hours, Continuous Positive Airway Pressure (ICD-10-PCS; principal; 2020-01-05)
PROC: 0BH17EZ Insertion of Endotracheal Airway into Trachea, Via Natural or Artificial Opening (ICD-10-PCS; 2020-01-06)
PROC: 5A1955Z Respiratory Ventilation, Greater than 96 Consecutive Hours (ICD-10-PCS; 2020-01-06)
PROC: 5A09357 Assistance with Respiratory Ventilation, Less than 24 Consecutive Hours, Continuous Positive Airway Pressure (ICD-10-PCS; 2020-01-06)
PROC: 02HV33Z Insertion of Infusion Device into Superior Vena Cava, Percutaneous Approach (ICD-10-PCS; 2020-01-06)
PROC: B548ZZA Ultrasonography of Superior Vena Cava, Guidance (ICD-10-PCS; 2020-01-06)
PROC: 0BJ08ZZ Inspection of Tracheobronchial Tree, Via Natural or Artificial Opening Endoscopic (ICD-10-PCS; 2020-01-16)
PROC: 0B9J8ZZ Drainage of Left Lower Lung Lobe, Via Natural or Artificial Opening Endoscopic (ICD-10-PCS; 2020-01-16)
PROC: 0B9B8ZZ Drainage of Left Lower Lobe Bronchus, Via Natural or Artificial Opening Endoscopic (ICD-10-PCS; 2020-01-16)
DX: A41.9 Sepsis, unspecified organism (principal); J96.22 Acute and chronic respiratory failure with hypercapnia; J10.08 Influenza due to other identified influenza virus with other specified pneumonia; J15.1 Pneumonia due to Pseudomonas; J85.1 Abscess of lung with pneumonia; J96.21 Acute and chronic respiratory failure with hypoxia; E87.1 Hypo-osmolality and hyponatremia; K56.7 Ileus, unspecified; A04.72 Enterocolitis due to Clostridium difficile, not specified as recurrent; J84.10 Pulmonary fibrosis, unspecified; J43.9 Emphysema, unspecified; I10 Essential (primary) hypertension; D64.9 Anemia, unspecified; Z96.651 Presence of right artificial knee joint; D69.6 Thrombocytopenia, unspecified; K59.00 Constipation, unspecified; B96.5 Pseudomonas (aeruginosa) (mallei) (pseudomallei) as the cause of diseases classified elsewhere; Z20.828 Contact with and (suspected) exposure to other viral communicable diseases; Z98.51 Tubal ligation status; Z88.5 Allergy status to narcotic agent; Z88.8 Allergy status to other drugs, medicaments and biological substances; Z79.899 Other long term (current) drug therapy; Z87.891 Personal history of nicotine dependence; Z99.81 Dependence on supplemental oxygen

== ENCOUNTER 2020-06-05 02:12 | Inpatient (IN) | payer MEDICARE, MEDICAID ==
[2020-06-05] VITALS (13 sets, daily range): BP systolic 98–143; BP diastolic 59–76
[~2020-06-05] VITALS: Ht 157.5 cm; Wt 80.2 kg
[~2020-06-05 02:12] MED LIST changes: +BISACODYL10 MG RECTAL; +FAMOTIDINE 20 M20 MG PO; +FIRVANQ50 MG/1 ML PER TUBE; +MEROPENEM1 GM IV; +NYAMYC15 GM TOP; +PROAIR HFA8.5 GM INH; +PULMICORT0.5 MG/21 INH; +VITAMIN D3125 MC2 PO; +VITCB500GO PO
[2020-06-05] MEDS ORDERED: FOSAMAX 70 MG T70 MG PO (02:22)
[2020-06-05] MEDS ORDERED: LASIX 40 MG TAB40 MG PO (02:23)
[2020-06-05 02:56] LABS: ABSOLUTE BASOPHILS 0.1 thou/uL (0.0-0.2); ABSOLUTE EOSINOPHILS 0.1 thou/uL (0.0-0.7); ABSOLUTE MONOCYTES 1.1 thou/uL (0.0-1.2); ABSOLUTE NEUTROPHILS 10.9 thou/uL (1.6-8.1); BASOPHILS 0.6 %; EOSINOPHILS 0.9 %; HEMATOCRIT 37.3 % (37.0-47.0); HEMOGLOBIN 11.9 gm/dL (12.0-15.0); LYMPHOCYTES 13.8 %; MCH 23.5 pg (26.0-34.0); MCV 73.3 fL (80.0-100.0); MONOCYTES 7.9 %; MPV 8.2 fl. (7.2-11.1); NUCLEATED RBCS 0 /100WBC; PLATELET COUNT* 318 thou/uL (150-400); POLYS 76.8 %; RBC 5.09 mil/uL (4.20-5.00); RDW-CV 15.8 % (10.5-14.5); WBC 14.2 thou/uL (4.0-11.0)
[2020-06-05 02:58] LABS: BE -0.9 mmol/L (-2 to +3); PCO2 42.7 mmHg (35.0-45.0); pH 7.374 (7.340-7.450)
[2020-06-05 02:59] LABS: PO2 160.2 mmHg (75.0-100.0)
[2020-06-05 03:02] LABS: CALCIUM 8.7 mg/dL (8.5-10.1); CREATININE 0.8 mg/dL (0.6-1.3); POTASSIUM 3.7 mmol/L (3.5-5.1)
[2020-06-05 03:13] LABS: ALBUMIN 3.8 g/dL (3.4-5.0); TOTAL BILIRUBIN 0.2 mg/dL (<0.1-1.0); TOTAL PROTEIN 7.1 g/dL (6.4-8.2)
--- NOTE | 2020-06-05 03:29 | NUR ---
SPOKE WITH PATIENT'S FRIEND, GEMA. SHE STATES SHE WILL BE GOING HOME WITH PT'S SISTER (WILTON) AND WOULD LIKE A CALL WHEN ALL RESULTS ARE BACK. WILTON'S PHONE NUMBER IS [phone]
--- NOTE | 2020-06-05 05:42 | NUR ---
CONTACTED PTS SISTER TO GIVE UPDATE.
[2020-06-05 08:35] LABS: CHOLESTEROL 157 mg/dL (<200); HDL CHOLESTEROL 90 mg/dL (>40); LDL CHOLESTEROL 61 mg/dL (<100); TC:HDL 1.7 Ratio (Not establshd); TRIGLYCERIDE 33 mg/dL (<150); VLDL 7 mg/dL (<40)
[2020-06-05 08:36] LABS: SERUM ASSESSMENT Clear
--- NOTE | 2020-06-05 13:01 | EKG ---
[place] [address] ELECTROCARDIOGRAM REPORT Name: YOLI ZAVALA Room: [address] ADM IN ..#: [id number] Admission: 06/05/20 Attend Phys: Evangelina Ruvalcaba MD Discharge: Date of : 52 Date of Service: 06/05/20 0224 Report #: [id number] THIS REPORT FOR: //name// [facility] ED Test Date: 2020-06-05 Test Time: 02:24:36 Pat Name: YOLI ZAVALA Department: Room: [facility] Gender: F Youth Associate: SHELBI : 1950 Requested By: Jarocho Cordova Order Number: [id number] Reading MD: Chaitanya Lopez Measurements Intervals [place] Rate: 92 P: 86 MS: 135 QRS: 85 QRSD: 102 T: 72 QT: 365 QTc: 452 Interpretive Statements Sinus rhythm Borderline right axis deviation Abnormal R-wave progression, early transition Nonspecific T abnrm, anterolateral leads ST elevation, consider inferior injury Artifact in lead(s) II,III,aVR,aVL,aVF,V1,V2,V3,V4,V5,V6 Compared to ECG 01/02/2020 13:48:58 ST (T wave) deviation now present Sinus tachycardia no longer present Myocardial infarct finding still present Electronically Signed On 06-05-2020 13:01:40 ASSISTANCE REPRESENTATIVE by Chaitanya Lopez [email or web address] <ELECTRONICALLY SIGNED> By: Chaitanya Lopez MD, [facility] 06/05/20 1301 3 3 Chaitanya Lopez MD, [facility] /EPI
--- NOTE | 2020-06-05 13:18 | CARD ---
[address] [address] CARDIAC CATH REPORT Name: JANAKKHUSHBUYOLI J Room: 116-[facility] IN [facility].#: [id number] Admission: 06/05/20 Attend Phys: Evangelina Ruvalcaba MD Discharge: Date of : 52 Report #: [id number] THIS REPORT FOR: cc: Catherine Durham Stephanie P. DO ~ Chaitanya Lopez MD [facility] APPROVED REPORT Study performed: 06/05/2020 10:36:19 Patient Details Patient Status: IN Room #: The patient is a 69 year-old female Event Personnel Chaitanya Lopez Candy Waffle Assembler, Madeline Hyatt RN Satellite Technician, Cathy Fernandez RTR ScrubAriana Brad ELECTRIC MOTOR FITTER Monitor Procedures Performed Art Access - R femoral artery* Left Heart Cath w/or w/o Coronaries [id number] [facility] Hemostasis w/ Mynx Indication Non-STEMI Risk Factors Hypercholesterolemia Procedure Narrative The patient was brought electively to the Cardiac Catheterization Laboratory and was prepped and draped in a sterile manner. The right femoral was infiltrated with 2% Lidocaine subcutaneous anesthesia. The right femoral accessed via ultrasound guidance. A Axtell 6 FR sheath was inserted into the right femoral artery. Coronary angiography was performed using coronary diagnostic catheters. The right coronary system was accessed and visualized with a Diagnostic JR4 catheter. The left coronary system was accessed and visualized with a Diagnostic JL4 catheter. The left ventricle was accessed and visualized with a Pig Tail catheter. Left ventricular/Aortic Valve gradient assessed . Left ventriculogram was performed in PULIDO projection. Pre-demployment femoral angiogram was performed . Closure device was deployed with a 6 Fr Mynx. The patient tolerated the procedure well and there were no complications associated with the procedure. [place] [address] CARDIAC CATH REPORT Name: YOLI ZAVALA Room: [address] IN ..#: [id number] Admission: 06/05/20 Attend Phys: Evangelina Ruvalcaba MD Discharge: Date of : 52 Report #: [id number] Intraoperative Conscious Sedation Sedation start time: 1051 Case end Time: 1128 Fluoro Time: 3.4 minutes Dose: DAP 40364 cGycm2 296 mGy Contrast Type and Amount: Visipaque 100 ml Diagnostic Cath Left Main 0% narrowing LAD 40% proximal LAD narrowing Circumflex 50% narrowing the proximal portion of the prominent first marginal branch of the nondominant circumflex Right Coronary 50% tubular narrowing of the dominant right coronary artery in its midportion just proximal to the acute margin Left Ventriculography The left ventricle is normal in size with Low normal contractility. The left ventricular ejection fraction is estimated to be 55%. Left ventricular wall motion abnormalities are present. There is no mitral insufficiency. Mid inferior hypo - akinesis is noted Hemodynamics The aortic pressure is 108/58 mmHg with a mean of 79 mmHg. The left ventricular pressure is 99/6 mmHg with a mean of mmHg. The left ventricular end diastolic pressure is 17 mmHg. There was no gradient across the aortic valve upon pullback. Conclusion 1. Moderate coronary artery disease characterized by the following: A 40% proximal LAD narrowing B 50% narrowing in the proximal portion of the prominent first marginal branch of the circumflex C 50% tubular mid right coronary narrowing just proximal to the acute margin 2. Mild elevation of left ventricular end-diastolic pressure at rest 3. Low normal global left ventricular systolic function, [place] [address] CARDIAC CATH REPORT Name: FERMINAGKHUSHBUYOLI J Room: [address] IN [facility]#: [id number] Admission: 06/05/20 Attend Phys: Evangelina Ruvalcaba MD Discharge: Date of : 52 Report #: [id number] ejection fraction being 55% with mid inferior hypo - akinesis. Recommendations Daily ASA with Plavix for at least one year Cardiac Risk Reduction Program Medical Therapy Diagnostic Cath Approved by: Chaitanya Lopez MD Date/Time: 06/05/2020 13:15:32 <ELECTRONICALLY SIGNED> By: Chaitanya Lopez MD, [facility] 06/05/20 1318 1318 1318Joana Lopez MD, FACC /INF
--- NOTE | 2020-06-05 13:23 | NUR ---
PT ARRIVED TO UNIT AROUND 1200. INSTRUCTED TO TAKE OVER CARE OF PATIENT FROM JUAN F ESCALERA. PT ORIENTED TO ROOM AND UNIT. BED LOW AND LOCKED, SIDE RAILS UPX3, CALL LIGT IN REACH. TELE APPLIED. RIGHT GROIN CDI WITH NO HEMAOMA.
--- NOTE | 2020-06-05 16:00 | NUR ---
PT.KNOWN FROM PREVIOUS ADMISSIONS. SPOKE WITH HER ON THE PHONE DUE TO COVID 19 PCR PENDING. SHE LIVES ALONE. HAS HOME O2 THROUGH [facility], A NEBUIZER,WALKER AND CANE. SHE DOESN'T NORMALLY USE THE CANE OR WALKER. SHE SAID SOA CAME ON RATHER FAST YESTERDAY. HER FAMILY IS SUPPORTIVE. HAD A PROLONGED STAY LAST DEC. AND WAS INTUBATED. HAS A HX OF HH WITH [facility]. SHE WOULD USE THEM AGAIN IF NEEDED. CM WILL FOLLOW.
--- NOTE | 2020-06-05 18:42 | NUR ---
RIGHT GROIN REMAINS CDI WITH NO HEMATOMA. PT DENIES PAIN AND IS TOLERATING PO WELL. WILL CONTINUE TO ASSESS.
--- NOTE | 2020-06-05 19:14 | NUR ---
ASSESS RIGHT GROIN WITH DANIELLA ESCALERA DURING SHIFT CHANGE. CALL RT FOR BREATHING TREATMENT.
[2020-06-06] VITALS (8 sets, daily range): BP systolic 93–128; BP diastolic 44–76
--- NOTE | 2020-06-06 02:29 | NUR ---
AEROSOL TX Q6WA PER MD ORDERS NOT GIVEN AT THIS TIME,PT IS ASLEEP;DANIELLA ESCALERA NOTIFIED.NO RESP DISTRESS OR S.O.B.
--- NOTE | 2020-06-06 03:28 | NUR ---
AT 1955 HRS PT REFUSED TO WEAR BIPAP,WILL CALL IF IN NEED;DANIELLA ESCALERA NOTIFIED.
--- NOTE | 2020-06-06 05:27 | NUR ---
PT A&O, VSS ON 4.5L NC, IV FLUIDS INFUSINGS ORDERED, URINARY CATHETER IN PLACE, PT REFUSED BIPAP. PT SLEEPING WELL, WILL CONTINUE TO MONITOR.
[2020-06-06 05:52] LABS: HEMATOCRIT 29.9 % (37.0-47.0); MCH 23.5 pg (26.0-34.0); MCHC 32.3 g/dL (28.0-37.0); MCV 72.8 fL (80.0-100.0); NUCLEATED RBCS 0 /100WBC; PLATELET COUNT* 259 thou/uL (150-400); RBC 4.11 mil/uL (4.20-5.00); RDW-CV 15.6 % (10.5-14.5); WBC 9.8 thou/uL (4.0-11.0)
[2020-06-06 05:59] LABS: CALCIUM 8.1 mg/dL (8.5-10.1); CREATININE 0.5 mg/dL (0.6-1.3); HEMOGLOBIN 9.7 gm/dL (12.0-15.0); POTASSIUM 3.9 mmol/L (3.5-5.1)
[2020-06-06 09:21] LABS: ABSOLUTE LYMPHOCYTES 0.6 thou/uL (0.8-5.3); ABSOLUTE MONOCYTES 0.2 thou/uL (0.0-1.2)
[2020-06-06 09:23] LABS: HYPOCHROMASIA 1+; MICROCYTES 1+; PLATELET ESTIMATE ADEQUATE
--- NOTE | 2020-06-06 18:24 | NUR ---
PT. A+O X4. RESTING COMFORTABLY IN BED. STATES SHE IS SORE FROM HER NSTEMI. SHE DID NOT NEED PAIN MEDS. SHE REQUESTED BREATHING TX AND BENADRYL FOR HER SINUSES. SPOKE TO THE PT ABOUT SANTOS REMOVAL. SHE WAS HESITANT AND STATED SHE WANTED TO KEEP IT FOR A FEW HOURS LONGER. APPROXIMATELY 1600 I PULLED HER SANTOS. EDUCATED THE PATIENT ON RISKS OF CAUTI. I PLACED HER BED SIDE COMMODE NEAR HER BED AND EDUCATED HER ON USING HER CALL LIGHT FOR ASSISTANCE. SHE IS RESTING COMFORTABLY IN BED. BED LOWERED AND LOCKED. CALL LIGHT WITHIN REACH. PT DENIES ANY REQUESTS AT THIS TIME.
[2020-06-07 04:06] LABS: ABSOLUTE LYMPHOCYTES 0.6 thou/uL (0.8-5.3); ABSOLUTE MONOCYTES 0.4 thou/uL (0.0-1.2); ABSOLUTE NEUTROPHILS 12.2 thou/uL (1.6-8.1); BASOPHILS 0.1 %; HEMATOCRIT 29.7 % (37.0-47.0); HEMOGLOBIN 9.6 gm/dL (12.0-15.0); LYMPHOCYTES 4.8 %; MCH 23.6 pg (26.0-34.0); MCHC 32.1 g/dL (28.0-37.0); MCV 73.5 fL (80.0-100.0); MPV 8.2 fl. (7.2-11.1); NUCLEATED RBCS 0 /100WBC; PLATELET COUNT* 261 thou/uL (150-400); POLYS 92.1 %; RBC 4.05 mil/uL (4.20-5.00); RDW-CV 15.7 % (10.5-14.5); WBC 13.2 thou/uL (4.0-11.0)
[2020-06-07 04:19] LABS: CALCIUM 8.6 mg/dL (8.5-10.1); CREATININE 0.6 mg/dL (0.6-1.3); POTASSIUM 3.9 mmol/L (3.5-5.1)
[2020-06-07 04:46] VITALS: BP 115/62
--- NOTE | 2020-06-07 06:04 | NUR ---
ASSUMED CARE OF PT AFTER REPORT AT 1930. PT A&OX4. VSS. PHYSICAL ASSESSMENT COMPLETED AND CHARTED. PT ON O2 AT 3L NC. PT TRACING SR ON TELE. PT UP WITH 1 ASSIST TO RESTROOM. PT DENIES ANY PAIN. POST CATH SITE TO RIGHT GROIN C/D/I. COVID PCR CAME BACK NEGATIVE- DR ROLDAN & HS MADE AWARE. FALL PRECAUTIONS IN PLACE. CALL LIGHT WITHIN REACH.
[2020-06-07 08:01] VITALS: BP 114/62
[2020-06-07] MEDS ORDERED: ASPIR 8181 MG PO (09:31)
[2020-06-07] MEDS ORDERED: CARDIZEM CD120 MG PO (09:31)
[2020-06-07] MEDS ORDERED: CLOPIDOGREL75 MG PO (09:45)
[2020-06-07] MEDS ORDERED: PREDNISONE 10 M10 M1 PO (11:51)
[2020-06-07 12:30] VITALS: BP 126/80
[2020-06-07 13:34] VITALS: BP 114/62
--- NOTE | 2020-06-07 15:30 | NUR ---
PATIENT DISCHARGED TO HOME. DISCHARGE PAPERS REVIEWED AND SIGNED. PRESCRIPTIONS CALLED TO PHARMACY AND INFORMATION SHEETS GIVEN. IV REMOVED. PATIENT DENIES ANY FURTHER NEEDS. PATIENT TAKEN BY WHEELCHAIR TO EXIT. LEFT WITH SISTER WITH HOME PORTABLE OXYGEN TANK.
[2020-06-07 15:46] VITALS: BP 114/62
== END 2020-06-07 15:30 | disposition home or self-care (01) | DRG 280 ==
LOC: M.ERS 02:12 → M.ORTHSURG 03:35 → M.TBA-ER 03:35 → M.ORTHSURG 11:58
PROVIDERS: Emergency Medicine; Internal Medicine; Registered Nurse; ADMIT Family Medicine; ATTEND Family Medicine
PROC: B215YZZ Fluoroscopy of Left Heart using Other Contrast (ICD-10-PCS; principal; 2020-06-05)
PROC: 5A09357 Assistance with Respiratory Ventilation, Less than 24 Consecutive Hours, Continuous Positive Airway Pressure (ICD-10-PCS; principal; 2020-06-05)
PROC: B211YZZ Fluoroscopy of Multiple Coronary Arteries using Other Contrast (ICD-10-PCS; principal; 2020-06-05)
PROC: 4A023N7 Measurement of Cardiac Sampling and Pressure, Left Heart, Percutaneous Approach (ICD-10-PCS; principal; 2020-06-05)
PROC: 5A09357 Assistance with Respiratory Ventilation, Less than 24 Consecutive Hours, Continuous Positive Airway Pressure (ICD-10-PCS; 2020-06-06)
DX: I21.4 Non-ST elevation (NSTEMI) myocardial infarction (principal); J96.01 Acute respiratory failure with hypoxia; J44.1 Chronic obstructive pulmonary disease with (acute) exacerbation; E78.5 Hyperlipidemia, unspecified; D64.9 Anemia, unspecified; I25.10 Atherosclerotic heart disease of native coronary artery without angina pectoris; F17.200 Nicotine dependence, unspecified, uncomplicated; I10 Essential (primary) hypertension; Z20.822 Contact with and (suspected) exposure to COVID-19; Z79.899 Other long term (current) drug therapy; Z88.5 Allergy status to narcotic agent; Z88.8 Allergy status to other drugs, medicaments and biological substances; Z88.1 Allergy status to other antibiotic agents; Z91.040 Latex allergy status

== ENCOUNTER 2020-07-01 23:49 | Inpatient (IN) | payer MEDICARE, MEDICAID ==
[~2020-07-01] VITALS: Ht 157.5 cm; Wt 58.1 kg
[~2020-07-01 23:49] MED LIST changes: +ASPIR 8181 MG PO; +CARDIZEM CD120 MG PO; +CLOPIDOGREL75 MG PO; +FOSAMAX 70 MG T70 MG PO
[2020-07-01 23:50] VITALS: BP 182/102
[2020-07-02] VITALS (9 sets, daily range): BP systolic 82–121; BP diastolic 52–81
[2020-07-02 00:29] LABS: ABSOLUTE BASOPHILS 0.1 thou/uL (0.0-0.2); ABSOLUTE EOSINOPHILS 0.3 thou/uL (0.0-0.7); ABSOLUTE LYMPHOCYTES 2.3 thou/uL (0.8-5.3); ABSOLUTE NEUTROPHILS 9.6 thou/uL (1.6-8.1); BASOPHILS 0.6 %; EOSINOPHILS 1.9 %; HEMATOCRIT 39.1 % (37.0-47.0); HEMOGLOBIN 12.4 gm/dL (12.0-15.0); LYMPHOCYTES 17.5 %; MCH 23.6 pg (26.0-34.0); MCHC 31.7 g/dL (28.0-37.0); MCV 74.5 fL (80.0-100.0); MONOCYTES 7.3 %; MPV 7.4 fl. (7.2-11.1); NUCLEATED RBCS 0 /100WBC; PLATELET COUNT* 371 thou/uL (150-400); POLYS 72.7 %; RBC 5.26 mil/uL (4.20-5.00); RDW-CV 17.4 % (10.5-14.5); WBC 13.2 thou/uL (4.0-11.0)
[2020-07-02 00:37] LABS: CALCIUM 8.7 mg/dL (8.5-10.1); CREATININE 0.8 mg/dL (0.6-1.3); POTASSIUM 4.3 mmol/L (3.5-5.1)
[2020-07-02 00:38] LABS: INR 0.9
[2020-07-02 00:47] LABS: ALBUMIN 3.6 g/dL (3.4-5.0); MAGNESIUM 2.2 mg/dL (1.8-2.4); TOTAL BILIRUBIN 0.3 mg/dL (<0.1-1.0); TOTAL PROTEIN 6.9 g/dL (6.4-8.2)
[2020-07-02 00:58] LABS: BE 0.9 mmol/L (-2 to +3); PCO2 44.7 mmHg (35.0-45.0); PO2 87.2 mmHg (75.0-100.0); pH 7.387 (7.340-7.450)
--- NOTE | 2020-07-02 14:10 | EKG ---
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: EVAN : 1950 Requested By: Anyi Perez Order Number: [id number] MD: Mateo Guajardo Measurements Intervals [place] Rate: 114 P: -39 IN: 104 QRS: 70 QRSD: 165 T: -38 QT: 297 QTc: 410 Interpretive Statements Sinus tachycardia Artifact in lead(s) aVR,V1,V2,V3,V4,V5,V6 Compared to ECG 06/05/2020 02:24:36 Sinus rhythm no longer present Myocardial infarct finding no longer present Electronically Signed On 07-02-2020 14:10:41 BLOOD TESTER by Mateo Guajardo [email or web address] <ELECTRONICALLY SIGNED> By: Mateo Guajardo MD, FAC 07/02/20 1410 0001 0001 Mateo Guajardo MD, [facility] /EPI
[2020-07-03 00:55] VITALS: BP 101/54
[2020-07-03 04:27] LABS: HEMATOCRIT 32.4 % (37.0-47.0); MCH 23.7 pg (26.0-34.0); MCHC 31.9 g/dL (28.0-37.0); MPV 7.6 fl. (7.2-11.1); RBC 4.37 mil/uL (4.20-5.00); RDW-CV 16.6 % (10.5-14.5); WBC 13.7 thou/uL (4.0-11.0)
[2020-07-03 04:38] VITALS: BP 100/63
[2020-07-03 04:50] LABS: HEMOGLOBIN 10.3 gm/dL (12.0-15.0)
[2020-07-03 04:54] LABS: ALBUMIN 2.7 g/dL (3.4-5.0); CALCIUM 8.5 mg/dL (8.5-10.1); CREATININE 0.7 mg/dL (0.6-1.3); MAGNESIUM 2.2 mg/dL (1.8-2.4); POTASSIUM 4.1 mmol/L (3.5-5.1); TOTAL BILIRUBIN 0.3 mg/dL (<0.1-1.0); TOTAL PROTEIN 5.6 g/dL (6.4-8.2)
[2020-07-03 07:45] VITALS: BP 121/70
[2020-07-03 16:00] VITALS: BP 99/55
[2020-07-03 20:00] VITALS: BP 137/80
[2020-07-03 23:18] VITALS: BP 124/79
[2020-07-04 07:48] LABS: HEMATOCRIT 34.7 % (37.0-47.0); MCH 23.7 pg (26.0-34.0); MCHC 31.7 g/dL (28.0-37.0); MCV 74.7 fL (80.0-100.0); MPV 7.9 fl. (7.2-11.1); NUCLEATED RBCS 0 /100WBC; PLATELET COUNT* 340 thou/uL (150-400); RBC 4.65 mil/uL (4.20-5.00)
[2020-07-04 08:00] VITALS: BP 159/89
[2020-07-04 08:03] LABS: CALCIUM 8.8 mg/dL (8.5-10.1); CREATININE 0.8 mg/dL (0.6-1.3); POTASSIUM 4.3 mmol/L (3.5-5.1)
[2020-07-04 08:37] LABS: ABSOLUTE LYMPHOCYTES 0.6 thou/uL (0.8-5.3); ABSOLUTE MONOCYTES 0.4 thou/uL (0.0-1.2); HYPOCHROMASIA 1+; MICROCYTES 1+; PLATELET ESTIMATE ADEQUATE
[2020-07-04 08:38] LABS: BURR CELLS 1+
[2020-07-04] MEDS ORDERED: PULMICORT0.25 MG/1 INH (09:52)
[2020-07-04] MEDS ORDERED: BROVANA15 MCG/2 M INH (09:52)
[2020-07-04] MEDS ORDERED: PREDNISONE 10 M10 M1 PO (09:52)
[2020-07-04] MEDS ORDERED: DOXYCYCLINE 10100 M2 PO (09:52)
[2020-07-04 09:56] LABS: URINE BILIRUBIN NEGATIVE (Negative); URINE BLOOD NEGATIVE (Negative); URINE CLARITY CLEAR; URINE COLOR YELLOW; URINE GLUCOSE-RANDOM NEGATIVE (Negative); URINE KETONES NEGATIVE (Negative); URINE LEUKOCYTES-REFLEX NEGATIVE (Negative); URINE NITRITE-REFLEX NEGATIVE (Negative); URINE PROTEIN NEGATIVE (Negative); URINE UROBILINOGEN 0.2 E.U./dl (0.2-1.0)
[2020-07-04 12:47] VITALS: BP 159/89
[2020-07-04 13:24] VITALS: BP 159/89
== END 2020-07-04 15:15 | disposition home health service (06) | DRG 189 ==
LOC: M.ERS 23:49 → M.TBA-ER 07-02 01:53 → M.ICU 07-02 04:22 → M.2W 07-02 09:35
PROVIDERS: Emergency Medicine; Internal Medicine; ADMIT Internal Medicine; ATTEND Internal Medicine
PROC: 5A09357 Assistance with Respiratory Ventilation, Less than 24 Consecutive Hours, Continuous Positive Airway Pressure (ICD-10-PCS; principal; 2020-07-02)
DX: J96.01 Acute respiratory failure with hypoxia (principal); R65.11 Systemic inflammatory response syndrome (SIRS) of non-infectious origin with acute organ dysfunction; J44.1 Chronic obstructive pulmonary disease with (acute) exacerbation; I10 Essential (primary) hypertension; Z96.651 Presence of right artificial knee joint; Z20.822 Contact with and (suspected) exposure to COVID-19; Z79.899 Other long term (current) drug therapy; Z79.82 Long term (current) use of aspirin; Z88.5 Allergy status to narcotic agent; Z88.8 Allergy status to other drugs, medicaments and biological substances; Z88.1 Allergy status to other antibiotic agents; Z91.040 Latex allergy status; Z87.891 Personal history of nicotine dependence

== ENCOUNTER 2020-09-18 23:34 | Inpatient (IN) | payer MEDICARE, MEDICAID ==
[~2020-09-18] VITALS: Ht 162.6 cm; Wt 56.7 kg
[~2020-09-18 23:34] MED LIST changes: +DOXYCYCLINE 10100 M2 PO; +PULMICORT0.25 MG/1 INH
[2020-09-18 23:35] VITALS: BP 169/95
[2020-09-18 23:57] LABS: ABSOLUTE LYMPHOCYTES 2.2 thou/uL (0.8-5.3); ABSOLUTE MONOCYTES 0.8 thou/uL (0.0-1.2); ABSOLUTE NEUTROPHILS 6.9 thou/uL (1.6-8.1); BASOPHILS 0.2 %; EOSINOPHILS 0.1 %; HEMATOCRIT 39.8 % (37.0-47.0); LYMPHOCYTES 22.5 %; MCH 26.1 pg (26.0-34.0); MCHC 32.7 g/dL (28.0-37.0); MCV 79.7 fL (80.0-100.0); MONOCYTES 8.2 %; MPV 8.1 fl. (7.2-11.1); NUCLEATED RBCS 0 /100WBC; PLATELET COUNT* 274 thou/uL (150-400); RBC 4.99 mil/uL (4.20-5.00); RDW-CV 17.5 % (10.5-14.5); WBC 9.9 thou/uL (4.0-11.0)
[2020-09-19 00:13] LABS: CALCIUM 8.7 mg/dL (8.5-10.1); CREATININE 0.8 mg/dL (0.6-1.3); POTASSIUM 3.8 mmol/L (3.5-5.1)
[2020-09-19 00:14] LABS: INR 0.9; PROTIME 10.1 Seconds (9.20-11.50)
[2020-09-19 00:14] LABS: PCO2 47.7 mmHg (35.0-45.0)
[2020-09-19 00:16] LABS: PO2 466.4 mmHg (75.0-100.0)
[2020-09-19 00:23] LABS: ALBUMIN 4.2 g/dL (3.4-5.0); MAGNESIUM 1.8 mg/dL (1.8-2.4); TOTAL BILIRUBIN 0.4 mg/dL (<0.1-1.0); TOTAL PROTEIN 7.8 g/dL (6.4-8.2)
[2020-09-19 03:55] VITALS: BP 114/71
[2020-09-19 08:26] VITALS: BP 108/75
[2020-09-19 12:01] VITALS: BP 96/60
--- NOTE | 2020-09-19 12:57 | EKG ---
[place] [address] ELECTROCARDIOGRAM REPORT Name: YOLI ZAVALA Room: [address] ADM IN .R.#: [id number] Admission: 09/19/20 Attend Phys: Darlyn Miller Discharge: Date of : 52 Date of Service: 09/18/20 2340 Report #: [id number] THIS REPORT FOR: //name// [facility] ED Test Date: 2020-09-18 Test Time: 23:40:13 Pat Name: YOLI LEMUSROD Department: Room: [facility] Gender: F Food Sampler: SHELBI : 1950 Requested By: Anyi Perez Order Number: [id number] MD: Gerhard Rock Measurements Intervals [place] Rate: 122 P: 77 ID: 138 QRS: 87 QRSD: 106 T: -25 QT: 325 QTc: 463 Interpretive Statements Sinus tachycardia Probable left atrial enlargement Borderline right axis deviation Low voltage, extremity leads Abnormal R-wave progression, early transition ST depr, consider ischemia, anterolateral lds Compared to ECG 07/02/2020 00:01:27 Low QRS voltage now present Possible ischemia now present Electronically Signed On 09-19-2020 12:56:57 CDT by Gerhard Rock [email or web address] <ELECTRONICALLY SIGNED> By: Gerhard Rock MD, [facility] 09/19/20 1256 2340 Gerhard Rock MD, [facility] /EPI
[2020-09-19 16:27] VITALS: BP 102/66
[2020-09-19 20:00] VITALS: BP 125/80
[2020-09-19 21:31] LABS: URINE BILIRUBIN NEGATIVE (Negative); URINE BLOOD NEGATIVE (Negative); URINE CLARITY CLEAR; URINE COLOR YELLOW; URINE GLUCOSE-RANDOM NEGATIVE (Negative); URINE KETONES NEGATIVE (Negative); URINE LEUKOCYTES-REFLEX NEGATIVE (Negative); URINE NITRITE-REFLEX NEGATIVE (Negative); URINE PROTEIN NEGATIVE (Negative); URINE SPECIFIC GRAVITY 1.015 (1.005-1.030); URINE UROBILINOGEN 0.2 E.U./dl (0.2-1.0)
[2020-09-20] VITALS (7 sets, daily range): BP systolic 108–145; BP diastolic 60–90
[2020-09-20 05:26] LABS: HEMOGLOBIN 11.6 gm/dL (12.0-15.0); MCH 25.8 pg (26.0-34.0); MCHC 33.2 g/dL (28.0-37.0); MCV 77.7 fL (80.0-100.0); MPV 8.5 fl. (7.2-11.1); NUCLEATED RBCS 0 /100WBC; PLATELET COUNT* 264 thou/uL (150-400); RDW-CV 16.8 % (10.5-14.5); WBC 9.5 thou/uL (4.0-11.0)
[2020-09-20 05:34] LABS: CALCIUM 8.7 mg/dL (8.5-10.1); CREATININE 0.6 mg/dL (0.6-1.3); POTASSIUM 3.9 mmol/L (3.5-5.1)
[2020-09-20 07:43] LABS: ABSOLUTE LYMPHOCYTES 0.8 thou/uL (0.8-5.3); ABSOLUTE NEUTROPHILS 8.7 thou/uL (1.6-8.1)
[2020-09-20 07:44] LABS: ANISOCYTOSIS 1+; PLATELET ESTIMATE ADEQUATE; POIKILOCYTOSIS 1+
--- NOTE | 2020-09-20 13:12 | CON ---
[address] [address] CONSULTATION Name: AL ZAVALAMarlon Diaz Room: [address] IN M.R.#: [id number] Admission: 09/19/20 Attend Phys: Shannan Mack Discharge: Date of : 52 Report #: [id number] THIS REPORT FOR: cc: Catherine Durham Stephanie P. DO Blick, David R. MD [facility] ~ DOC #: [id number] Gerhard Rock MD [facility] DATE OF CONSULTATION: 09/19/2020 CARDIOLOGY CONSULTATION HISTORY OF PRESENT ILLNESS: The patient is a 69-year-old female who I was asked to see in the hospital after she is noted to have an elevated troponin. The patient has an extensive and complicated past medical history. She apparently smoked for 40 years, but quit last fall. She was actually on the ventilator last fall for respiratory failure and was unable to be weaned from the ventilator. She apparently, eventually had a tracheostomy and PEG tube placement. She eventually was weaned off the ventilator. She is now back home with oxygen. She has a nebulizer. She is followed by pulmonary. She is not very active because of her COPD. Recently, she has been more short of breath. She has been coughing clear sputum, but denied any fever. She did note some chest tightness radiating to her back. She noticed her heart racing, but she has had no syncope. She called EMS and was brought to [facility]. She is noted to have an elevated troponin. I was asked to see her for further evaluation and treatment. PAST MEDICAL HISTORY: She actually had an elevated troponin here at [facility] in 05/2020 and underwent a heart catheterization from the right femoral artery. This showed minimal coronary artery disease with a 50% narrowing of the right coronary artery with an ejection fraction of 55%. Medical therapy was recommended. She has had surgery on a leg fracture in the past. She has had cataract extractions. She does have a history of hypertension. CURRENT MEDICATIONS: Consists of aspirin, Lipitor, Plavix, nebulized treatment, prednisone. She stopped taking aspirin because of easy bruisability. ALLERGIES: SHE HAS A PREVIOUS INTOLERANCE TO CODEINE, HYDROCODONE, FENTANYL, MORPHINE. FAMILY HISTORY: Her father had heart attack. SOCIAL HISTORY: She has been twice. She lives by herself in [place] [address] CONSULTATION Name: YOLI ZAVALA Room: [address]#: [id number] Admission: 09/19/20 Attend Phys: Shannan Mack Discharge: Date of : 52 Report #: [id number] REVIEW OF SYSTEMS: She has had no history of a stroke, liver disease. She has had kidney stones, ____. She has arthritis. ____ chronic skin condition. No psychiatric illness. PHYSICAL EXAMINATION: GENERAL: Revealed a frail elderly female who appeared in no distress. VITAL SIGNS: She had a blood pressure of 140/90, pulse is 90. She is afebrile. HEENT: She was anicteric. Conjunctivae pink. Mucous membranes are moist. NECK: Veins not appear distended. No carotid bruits. CHEST: Revealed distant breath sounds. CARDIAC: Regular rate and rhythm. No murmur. ABDOMEN: Soft. EXTREMITIES: Had no edema. Dorsalis pedis pulse, 2+ bilaterally. SKIN: Cool and dry. NEUROLOGIC: Nonfocal. DIAGNOSTIC DATA: Her ECG showed a sinus rhythm with nonspecific ST and T-wave changes. The patient had an echocardiogram last December that showed an ejection fraction of 60%. WORKUP: She had a chest x-ray yesterday that showed scoliosis, clear lung bran, normal heart size. She actually had a CT scan of the chest using a PE protocol that showed no pulmonary embolus, hyperinflated lung bran, plaque noted in the coronary arteries and thoracic aorta, some atelectasis. LABORATORY WORK: Sodium 132, creatinine 0.8. Her troponin 0.4, it was actually 1.3 in May. In May, cholesterol 157, triglycerides 33, HDL 90, LDL 61. TSH 0.2. White blood cell count 9.9, hemoglobin 13.0. IMPRESSION AND RECOMMENDATIONS: 1. Coronary artery disease. Noted to be mild on cardiac catheterization 4 months ago. I would continue Plavix. The patient stopped taking aspirin because of easy bruisability. Recommend no further cardiac evaluation at this time. 2. Chronic obstructive pulmonary disease. 3. Hypertension. The patient is on a calcium keri. 4. Hyperlipidemia. The patient is on a statin drug. 5. Previous tobacco abuse. 6. History of kidney stones. Gerhard Rock MD [facility] [place]ICOLA/[place] [address] CONSULTATION Name: YOLI ZAVALA Room: [facility] IN M.R.#: [id number] Admission: 09/19/20 Attend Phys: Shannan Mack Discharge: Date of : 52 Report #: [id number] <ELECTRONICALLY SIGNED> By: Gerhard Rock MD, FACC 09/20/20 1312 0937 [id number] Rock MD, FACC /nt
[2020-09-20] MEDS ORDERED: XANAX 0.25 MG0.25 MG PO (20:06)
[2020-09-20] MEDS ORDERED: TIZANIDINE HCL4 M1 PO (20:08)
[2020-09-21 03:45] VITALS: BP 113/74
[2020-09-21 08:20] VITALS: BP 107/59
[2020-09-21 12:34] VITALS: BP 137/75
[2020-09-21 15:58] VITALS: BP 138/79
[2020-09-21 20:27] VITALS: BP 146/81
[2020-09-22 07:56] VITALS: BP 122/79
[2020-09-22 16:00] VITALS: BP 126/77
[2020-09-22 20:00] VITALS: BP 144/84
[2020-09-23 08:00] VITALS: BP 126/67
[2020-09-23 17:23] VITALS: BP 144/76
[2020-09-23 20:00] VITALS: BP 134/72
[2020-09-24 09:15] VITALS: BP 115/46
[2020-09-24 14:28] LABS: HEMATOCRIT 37.1 % (37.0-47.0); HEMOGLOBIN 12.3 gm/dL (12.0-15.0); MCH 25.9 pg (26.0-34.0); MCV 78.4 fL (80.0-100.0); MPV 7.7 fl. (7.2-11.1); NUCLEATED RBCS 0 /100WBC; PLATELET COUNT* 299 thou/uL (150-400); RBC 4.73 mil/uL (4.20-5.00); RDW-CV 16.4 % (10.5-14.5); WBC 9.6 thou/uL (4.0-11.0)
[2020-09-24 14:40] LABS: ALBUMIN 3.2 g/dL (3.4-5.0); CALCIUM 8.2 mg/dL (8.5-10.1); CREATININE 0.7 mg/dL (0.6-1.3); POTASSIUM 4.2 mmol/L (3.5-5.1); TOTAL BILIRUBIN 0.2 mg/dL (<0.1-1.0); TOTAL PROTEIN 5.9 g/dL (6.4-8.2)
[2020-09-24 15:25] LABS: ABSOLUTE LYMPHOCYTES 0.7 thou/uL (0.8-5.3); ABSOLUTE MONOCYTES 0.1 thou/uL (0.0-1.2); ABSOLUTE NEUTROPHILS 8.8 thou/uL (1.6-8.1); PLATELET ESTIMATE ADEQUATE
[2020-09-24 15:56] LABS: BE 0.5 mmol/L (-2 to +3); PCO2 37.5 mmHg (35.0-45.0); PO2 86.5 mmHg (75.0-100.0); pH 7.433 (7.340-7.450)
[2020-09-24 16:00] VITALS: BP 108/71
[2020-09-24 20:34] VITALS: BP 122/81
[2020-09-25 09:30] VITALS: BP 117/70
[2020-09-25 16:41] VITALS: BP 107/62
[2020-09-25 20:00] VITALS: BP 145/86
[2020-09-26 03:47] LABS: HEMATOCRIT 36.2 % (37.0-47.0); HEMOGLOBIN 11.9 gm/dL (12.0-15.0); MCH 25.7 pg (26.0-34.0); MCHC 32.7 g/dL (28.0-37.0); MCV 78.6 fL (80.0-100.0); MPV 7.7 fl. (7.2-11.1); RBC 4.61 mil/uL (4.20-5.00); RDW-CV 16.3 % (10.5-14.5); WBC 12.6 thou/uL (4.0-11.0)
[2020-09-26 04:22] LABS: CALCIUM 8.4 mg/dL (8.5-10.1); CREATININE 0.8 mg/dL (0.6-1.3); POTASSIUM 3.9 mmol/L (3.5-5.1)
[2020-09-26 08:15] VITALS: BP 145/83
[2020-09-26 15:53] VITALS: BP 127/77
[2020-09-26 20:00] VITALS: BP 149/80
[2020-09-27 08:10] VITALS: BP 148/79
[2020-09-27] MEDS ORDERED: SINGULAIR 10 MG10 M1 PO (09:16)
[2020-09-27] MEDS ORDERED: PREDNISONE 10 M10 M1 PO (09:16)
[2020-09-27 14:21] VITALS: BP 148/79
[2020-09-27 15:12] VITALS: BP 148/79
[2020-09-27 15:52] VITALS: BP 127/77
== END 2020-09-27 16:20 | disposition home health service (06) | DRG 177 ==
LOC: M.ERS 23:34 → M.TBA-ER 09-19 02:14 → M.2W 09-19 02:14 → M.ORTHSURG 09-21 18:50
PROVIDERS: Emergency Medicine; Internal Medicine; Internal Medicine Critical Care Medicine; ADMIT Internal Medicine; ATTEND Internal Medicine
PROC: 5A09357 Assistance with Respiratory Ventilation, Less than 24 Consecutive Hours, Continuous Positive Airway Pressure (ICD-10-PCS; 2020-09-19)
PROC: B54NZZA Ultrasonography of Left Upper Extremity Veins, Guidance (ICD-10-PCS; principal; 2020-09-25)
PROC: 05HF33Z Insertion of Infusion Device into Left Cephalic Vein, Percutaneous Approach (ICD-10-PCS; principal; 2020-09-25)
DX: J15.6 Pneumonia due to other Gram-negative bacteria (principal); J96.22 Acute and chronic respiratory failure with hypercapnia; J96.21 Acute and chronic respiratory failure with hypoxia; I21.A1 Myocardial infarction type 2; I10 Essential (primary) hypertension; J43.9 Emphysema, unspecified; B37.9 Candidiasis, unspecified; Z20.822 Contact with and (suspected) exposure to COVID-19; Z96.651 Presence of right artificial knee joint; Z86.711 Personal history of pulmonary embolism; Z79.82 Long term (current) use of aspirin; Z79.01 Long term (current) use of anticoagulants; Z79.899 Other long term (current) drug therapy; Z88.5 Allergy status to narcotic agent; Z88.8 Allergy status to other drugs, medicaments and biological substances; Z88.1 Allergy status to other antibiotic agents; Z91.040 Latex allergy status; Z87.891 Personal history of nicotine dependence

== ENCOUNTER 2021-05-31 18:23 | Inpatient (IN) | payer MEDICARE, MEDICAID ==
[~2021-05-31] VITALS: Ht 157.5 cm; Wt 55.8 kg
--- NOTE | ~2021-05-31 | EMS ---
[address] [address] EMS Patient Care Report Name: YOLI ZAVALA Room: [address] IN [facility]#: [id number] Admission: 05/31/21 Attend Phys: Shannan Fox Discharge: Date of : 52 Report #: [id number] THIS REPORT FOR: //name// Report Transmitted: 06/01/2021 08:35 EMS Care Summary [facility] Incident [id number] @ 05/31/2021 17:35 Incident Location [id number] [place] [address] Patient YOLI ZAVALA Female, 70 Years 1950 Patient Address [address] [place] [address] Patient History Anemia, unspecified,Cardiac Condition - Other,Acute respiratory failure,Constipation,Emphysema,Pathological fracture, not elsewhere classified,Anxiety disorder, unspecified,Chronic Obstructive Pulmonary Disease (COPD),Hypertension (HTN),Other chronic pain,History of falling, Patient Allergies , Patient Medications Xanax, Diltiazem, Clopidogrel, Tamsulosin, Furosemide, [place], DuoNeb, Atorvastatin, Prednisone, Pulmicort, Singulair, Tizanidine, Chief Complaint Shortness of Breath Disposition Transported No Lights/[place] Dispatch Reason Breathing Problem Transported To [facility] Narrative 321 DISPATCHED EMERGENT TO [facility] FOR SHORTNESS OF BREATH. 321 ARRIVED ON SCENE [address] [place] [address] EMS Patient Care Report Name: YOLI ZAVALA Room: [address] IN .R.#: [id number] Admission: 05/31/21 Attend Phys: Shannan Fox Discharge: Date of : 52 Report #: [id number] WITHOUT INCIDENT. UPON ARRIVAL ON SCENE, EMS FOUND PT LAYING IN HER BED AND HER FAMILY IN THE ROOM. PT DID NOT APPEAR TO BE IN ANY OBVIOUS DISTRESS. PT STATED SHE WAS SHORT OF AIR AND HAD BEEN FOR A FEW DAYS. EMS FIND THE NURSE WHO IS CARING FOR THIS PT. THE NURSE REPORTS THE PT HAS BEEN FINE FOR HIM AND THE PT'S SISTER REQUESTED HE CALL FOR AN AMBULANCE. HE STATES SHE IS COVID NEGATIVE, TESTED TODAY. AT THE BEDSIDE IS A NEBULIZER MACHINE WITH A FULL NEBULIZER MASK ATTACHED. EMS ASKS PT ABOUT THE FINDINGS AND SHE STATED SHE DID NOT TAKE THE NEBULIZER BECAUSE SHE DIDN'T WANT TO. SHE STATED "I DON'T EVEN THINK THEY ARE HELPING." PT QUICKLY STATES THAT SHE WOULD LIKE TO GO TO [facility]. EMS IS ATTEMPTING TO OBTAIN MORE INFORMATION, EMS NOTICES PT IS BREATHING WITH MORE FORCE. PT STATES SHE IS IN THE FACILITY DUE TO HAVING HIP SURGERY AFTER A FRACTURE. PT STATES SHE HAS A HISTORY OF COPD AND EMPHYSEMA. PT IS VERY SHORT TEMPERED WITH EMS AND IS SHORT IN ANSWERING QUESTIONS. WHEN STAFF BECAME AVAILABLE, PT IS LIFTED FROM THE BED TO THE COT VIA SHEET LIFT. PT IS SECURED TO THE COT VIA SEATBELTS AND SIDERAILS. PT IS VERY ANXIOUS AT THIS TIME AND EMS IS UNABLE TO POSITION HER COMFORTABLY ON THE COT. PT IS WHEELED TO THE AMBULANCE, WHERE TREATMENTS AND INTERVENTIONS ARE EXECUTED. PT STATES SHE IS ALREADY FEELING BETTER WITH THE OXYGEN. PT STATED "DUONEBS USUALLY HELP ME" BUT DIDN'T ACCEPT THE OFFERED TREATMENT THIS EVENING. TRANSPORT BEGAN AT THIS TIME. DURING TRANSPORT, PT WAS SHORT WITH EMS BUT STATED MULTIPLE TIMES THE DUONEB WAS HELPING HER. PT'S BREATHING RETURNED TO NORMAL, EMS FIRST APPROACHED HER. PT'S VITALS WERE MONITORED ENROUTE AND REMAINED STABLE. UPON ARRIVING AT THE HOSPITAL, PT WAS UNLOADED FROM THE AMBULANCE AND WHEELED INTO THE ER ROOM. PT BEGAN TO BREATHE HEAVILY AND HYPERVENTILATE. PT WAS LIFTED FROM THE COT TO THE BED VIA SHEET LIFT. PT REPORT WAS GIVEN TO RN WHO SIGNED ACCEPTING PT. TRANSFER OF CARE OFFICIAL AT THIS TIME. Initial Vitals @17:56SpO2: 91, @17:57SpO2: 91, @18:00SpO2: 94, @18:05SpO2: 96, @18:07SpO2: 97, @18:11SpO2: 99, @18:17SpO2: 100, @17:56 @18:05Temp: 101.12F, @17:57P: 95,R: 24,BP: 100/67, @18:07P: 94,R: 24,BP: 106/70, @18:17P: 97,R: 24,BP: 115/67, @17:57GCS: 15, @18:07GCS: 15, @18:17GCS: 15, @18:06Glucose: 136, Assessments [address] [address] EMS Patient Care Report Name: YOLI ZAVALA Room: [address] IN M.R.#: [id number] Admission: 05/31/21 Attend Phys: Shannan Fox Discharge: Date of : 52 Report #: [id number] @17:42MENTAL:SKIN:HEENT:LUNG SOUNDS:ABDOMEN:PELVIS//GI:EXTREMITIES:PULSE:NEURO: Impression Acute Respiratory Distress (Dyspnea) Procedures @PTAOxygen Complications: , Response: Unchanged @17:52 Oxygen Complications: , Response: Improved @18:02 Oxygen Complications: , Response: Improved @18:02 Albuterol - 2.500 Milligrams (mg) - Inhalation Response: Improved @18:02 Ipratropium - 0.500 Milligrams (mg) - Inhalation Response: Improved @18:15 Oxygen Complications: , Response: Unchanged @18:04 IV Therapy - cc () Site: Antecubital-Left Response: UnchangedFailed @17:56 3-Lead ECG Response: UnchangedSucceeded Timeline NEURORADIOLOGIST,Oxygen Complications: ,,Response: Unchanged 17:34,Dispatch Notified 17:34,Psap Call 17:35,Dispatched 17:35,En Route 17:41,On Scene 17:42,At Patient 17:52,Oxygen Complications: ,,Response: Improved 17:56,3-Lead ECG,Response: UnchangedSucceeded, 17:56,BP: / M,PULSE: ,RR: R,SPO2: 91 Ox,ETCO2: ,BG: ,PAIN: ,GCS: , 17:56,BP: / M,PULSE: ,RR: R,SPO2: Ox,ETCO2: ,BG: ,PAIN: ,GCS: , 17:57,BP: / M,PULSE: ,RR: R,SPO2: 91 Ox,ETCO2: ,BG: ,PAIN: ,GCS: , 17:57,BP: 100/67 M,PULSE: 95,RR: 24 R,SPO2: Ox,ETCO2: ,BG: ,PAIN: ,GCS: , 17:57,BP: / M,PULSE: ,RR: R,SPO2: Ox,ETCO2: ,BG: ,PAIN: ,GCS: 15, 18:00,BP: / M,PULSE: ,RR: R,SPO2: 94 Ox,ETCO2: ,BG: ,PAIN: ,GCS: , 18:02,Oxygen Complications: ,,Response: Improved 18:02,Albuterol - 2.500 Milligrams (mg) - Inhalation,Response: Improved 18:02,Ipratropium - 0.500 Milligrams (mg) - Inhalation,Response: Improved 18:04,IV Therapy - cc Site: Antecubital-Left,Response: UnchangedFailed, 18:05,BP: / M,PULSE: ,RR: R,SPO2: 96 Ox,ETCO2: ,BG: ,PAIN: ,GCS: , 18:05,BP: / M,PULSE: ,RR: R,SPO2: Ox,ETCO2: ,BG: ,PAIN: ,GCS: , 18:06,BP: / M,PULSE: ,RR: R,SPO2: Ox,ETCO2: ,B,PAIN: ,GCS: , 18:07,BP: / M,PULSE: ,RR: R,SPO2: 97 Ox,ETCO2: ,BG: ,PAIN: ,GCS: , 18:07,BP: 106/70 M,PULSE: 94,RR: 24 R,SPO2: Ox,ETCO2: ,BG: ,PAIN: ,GCS: , 18:07,BP: / M,PULSE: ,RR: R,SPO2: Ox,ETCO2: ,BG: ,PAIN: ,GCS: 15, 18:08,Depart Scene 18:11,BP: / M,PULSE: ,RR: R,SPO2: 99 Ox,ETCO2: ,BG: ,PAIN: ,GCS: , 18:15,Oxygen Complications: ,,Response: Unchanged [address] [address] EMS Patient Care Report Name: YOLI ZAVALA Room: [address] ADM IN M.R.#: [id number] Admission: 05/31/21 Attend Phys: Shannan Fox Discharge: Date of : 52 Report #: [id number] 18:17,BP: / M,PULSE: ,RR: R,SPO2: 100 Ox,ETCO2: ,BG: ,PAIN: ,GCS: , 18:17,BP: 115/67 M,PULSE: 97,RR: 24 R,SPO2: Ox,ETCO2: ,BG: ,PAIN: ,GCS: , 18:17,BP: / M,PULSE: ,RR: R,SPO2: Ox,ETCO2: ,BG: ,PAIN: ,GCS: 15, 18:20,At Destination 18:34,Call Closed Disclaimer v1.1 Copyright 2021 [employer] This EMS Care Summary contains data elements from the applicable legal record (which may be displayed differently). It is designed to provide pertinent information for the following purposes: continuity of care, clinical quality, and state data reporting. The complete legal record is available to ED staff and administrators of the receiving hospital in [employer]'s Patient Tracker. All data is provided "as is."
[~2021-05-31 18:23] MED LIST changes: +SINGULAIR 10 MG10 M1 PO; +TIZANIDINE HCL4 M1 PO; +XANAX1 MG PO
[2021-05-31 18:30] VITALS: BP 95/63
[2021-05-31] MEDS ORDERED: LASIX 40 MG TAB40 MG PO (18:34)
[2021-05-31] MEDS ORDERED: NORCO7.5 PO (18:35)
[2021-05-31] MEDS ORDERED: TESSALON PERLE100 MG PO (18:36)
[2021-05-31 18:58] LABS: HEMATOCRIT 30.7 % (37.0-47.0); HEMOGLOBIN 9.8 gm/dL (12.0-15.0); MCH 26.7 pg (26.0-34.0); MCHC 31.9 g/dL (28.0-37.0); MCV 83.8 fL (80.0-100.0); MPV 7.1 fl. (7.2-11.1); NUCLEATED RBCS 0 /100WBC; PLATELET COUNT* 161 thou/uL (150-400); RBC 3.67 mil/uL (4.20-5.00); RDW-CV 15.7 % (10.5-14.5)
[2021-05-31 19:09] LABS: BE 7.4 mmol/L (-2 to +3); PCO2 37.1 mmHg (35.0-45.0); PO2 61.6 mmHg (75.0-100.0); pH 7.531 (7.340-7.450)
[2021-05-31 19:11] LABS: CALCIUM 8.2 mg/dL (8.5-10.1); CREATININE 0.6 mg/dL (0.6-1.3)
[2021-05-31 19:12] LABS: POTASSIUM 2.5 mmol/L (3.5-5.1)
[2021-05-31 19:21] LABS: TOTAL BILIRUBIN 0.9 mg/dL (<0.1-1.0); TOTAL PROTEIN 6.1 g/dL (6.4-8.2)
[2021-05-31 19:42] LABS: ABSOLUTE LYMPHOCYTES 0.2 thou/uL (0.8-5.3); ABSOLUTE MONOCYTES 0.2 thou/uL (0.0-1.2); ABSOLUTE NEUTROPHILS 4.6 thou/uL (1.6-8.1)
[2021-05-31 19:43] LABS: PLATELET ESTIMATE ADEQUATE
[2021-05-31] MEDS ORDERED: PREDNISONE 20 M20 MG PO (22:51)
[2021-06-01] VITALS (7 sets, daily range): BP systolic 93–114; BP diastolic 57–78
[2021-06-01] MEDS ORDERED: TAMSULOSIN HCL0.4 MG PO (06:44)
[2021-06-01] MEDS ORDERED: MIRALAX119 GM PO (06:48)
[2021-06-01] MEDS ORDERED: SUPER THERAVIT1 EACH PO (06:49)
--- NOTE | 2021-06-01 10:03 | EKG ---
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1950 Requested By: Clark Carrasquillo Order Number: [id number] MD: Mateo Guajardo Measurements Intervals [place] Rate: 97 P: 65 [place]: 123 QRS: 75 QRSD: 120 T: 58 QT: 368 QTc: 468 Interpretive Statements Sinus tachycardia Premature atrial complex Nonspecific T wave flattening and inversion Incomplete right bundle branch block Inferior Q waves noted Compared to ECG 09/18/2020 23:40:13 No significant changes noted Electronically Signed On 06-01-2021 9:07:09 GAS GENERATOR OPERATOR by Mateo Guajardo [email or web address] <ELECTRONICALLY SIGNED> By: Mateo Guajardo MD, FACC 06/01/21906 15 15 Mateo Guajardo MD, FAC /EPI
[2021-06-02] VITALS: BP 96/57
[2021-06-02 04:00] VITALS: BP 104/70
[2021-06-02 07:45] VITALS: BP 99/63
--- NOTE | 2021-06-02 12:46 | 2DMMODE ---
[place] [address] 2 D/M-MODE ECHOCARDIOGRAM Name: YOLI ZAVALA Room: [facility]#: [id number] Admission: 05/31/21 Attend Phys: Akbar Guadarrama Discharge: Date of : 52 Date of Service: 06/02/21 1246 Report #: [id number] THIS REPORT FOR: cc: Catherine Durham,Chaitanya Ortega MD [facility] ~ APPROVED REPORT Study performed: 06/02/2021 11:32:47 EXAM: Comprehensive 2D, Doppler, and color-flow Echocardiogram Patient Location: In-Patient Room #: [facility] Status: routine BSA: 1.55 HR: 67 bpm BP: 104/70 mmHg Rhythm: NSR Other Information Study Quality: Good Indications COPD elevated bnp 2D Dimensions IVSd: 8.49 (7-11mm) LVOT Diam: 19.16 (18-24mm) LVDd: 36.76 mm PWd: 9.33 (7-11mm) Ascending Ao: 33.48 (22-36mm) LVDs: 17.30 (25-40mm) Aortic Root: 30.61 mm Volumes Left Atrial Volume (Systole) LA ESV Index: 19.10 mL/m2 Aortic Valve AoV Peak Chris.: 1.25 m/s AO Peak Gr.: 6.22 mmHg LVOT Max P.56 mmHg AO Mean Gr.: 3.16 mmHg LVOT Mean P.85 mmHg LVOT Max V: 1.28 m/s AO V2 VTI: 20.84 cm LVOT Mean V: 0.76 m/s ANASTASIA (VTI): 3.43 cm2 LVOT V1 VTI: 24.80 [place] [address] 2 D/M-MODE ECHOCARDIOGRAM Name: YOLI ZAVALA Room: [address] IN ..#: [id number] Admission: 05/31/21 Attend Phys: Akbar Guadarrama Discharge: Date of : 52 Date of Service: 06/02/21 1246 Report #: [id number] Mitral Valve E/A Ratio: 1.09 MV Decel. Time: 213.41 ms MV E Max Chris.: 0.80 m/s MV PHT: 61.89 ms MVA (PHT): 3.55 cm2 Pulmonary Valve PV Peak Chris.: 1.11 m/s PV Peak Gr.: 4.95 mmHg Tricuspid Valve RAP Estimate: 5.00 mmHg TR Peak Gr.: 25.77 mmHg RVSP: 30.00 mmHg PA Pressure: 30.00 mmHg Left Ventricle The left ventricle is normal size. There is normal LV segmental wall motion. There is normal left ventricular wall thickness. Left ventricular systolic function is normal. The left ventricular ejection fraction is within the normal range. LVEF is 60-65%. This study is not technically sufficient to allow evaluation of the LV diastolic function. Right Ventricle Right ventricle is mild to moderately dilated. The right ventricular systolic function is normal. Atria The left atrium size is normal. Right atrium is mildly dilated. Aortic Valve The aortic valve is normal in structure. No aortic regurgitation is present. There is no aortic valvular stenosis. Mitral Valve Mild mitral annular calcification. There is no mitral valve regurgitation noted. No evidence of mitral valve stenosis. Tricuspid Valve The tricuspid valve is normal in structure. Mild tricuspid regurgitation. Mild pulmonary hypertension. Pulmonic Valve The pulmonary valve is normal in structure[place] [address] 2 D/M-MODE ECHOCARDIOGRAM Name: YOLI ZAVALA Room: [address]#: [id number] Admission: 05/31/21 Attend Phys: Akbar Guadarrama Discharge: Date of : 52 Date of Service: 06/02/21 1246 Report #: [id number] regurgitation. Great Vessels The aortic root is normal in size. IVC is normal in size and collapses >50% with inspiration. Pericardium There is no pericardial effusion. <Conclusion> The left ventricle is normal size. There is normal left ventricular wall thickness. Left ventricular systolic function is normal. The left ventricular ejection fraction is within the normal range. LVEF is 60-65%. Right ventricle is mild to moderately dilated. The right ventricular systolic function is normal. The left atrium size is normal. Right atrium is mildly dilated. The aortic valve is normal in structure. Mild mitral annular calcification. There is no mitral valve regurgitation noted. The tricuspid valve is normal in structure. Mild tricuspid regurgitation. Mild pulmonary hypertension. IVC is normal in size and collapses >50% with inspiration. There is no pericardial effusion. There is normal LV segmental wall motion. <ELECTRONICALLY SIGNED> By: Chaitanya Lopez MD, FACC 06/02/21 1246 [id number] Chaitanya Lopez MD, FACC /INF
[2021-06-02 16:00] VITALS: BP 143/120
[2021-06-02 20:10] VITALS: BP 107/73
[2021-06-03] VITALS (7 sets, daily range): BP systolic 111–128; BP diastolic 61–84
[2021-06-03 09:26] LABS: ABSOLUTE LYMPHOCYTES 0.4 thou/uL (0.8-5.3); ABSOLUTE MONOCYTES 0.4 thou/uL (0.0-1.2); ABSOLUTE NEUTROPHILS 6.6 thou/uL (1.6-8.1); BASOPHILS 0.1 %; HEMOGLOBIN 10.5 gm/dL (12.0-15.0); MCH 26.8 pg (26.0-34.0); MCHC 32.8 g/dL (28.0-37.0); MCV 81.7 fL (80.0-100.0); MONOCYTES 5.3 %; MPV 7.7 fl. (7.2-11.1); NUCLEATED RBCS 0 /100WBC; POLYS 89.6 %; RBC 3.91 mil/uL (4.20-5.00); WBC 7.4 thou/uL (4.0-11.0)
[2021-06-03 09:27] LABS: PLATELET COUNT* 297 thou/uL (150-400)
[2021-06-03 09:47] LABS: CALCIUM 8.4 mg/dL (8.5-10.1); CREATININE 0.5 mg/dL (0.6-1.3); POTASSIUM 3.8 mmol/L (3.5-5.1); TOTAL BILIRUBIN 0.5 mg/dL (<0.1-1.0); TOTAL PROTEIN 5.8 g/dL (6.4-8.2)
[2021-06-04 04:00] VITALS: BP 110/77
[2021-06-04 04:15] LABS: HEMATOCRIT 32.4 % (37.0-47.0); HEMOGLOBIN 10.6 gm/dL (12.0-15.0); MCH 26.9 pg (26.0-34.0); MCHC 32.9 g/dL (28.0-37.0); MCV 81.8 fL (80.0-100.0); MPV 7.5 fl. (7.2-11.1); NUCLEATED RBCS 0 /100WBC; PLATELET COUNT* 298 thou/uL (150-400); RBC 3.96 mil/uL (4.20-5.00); RDW-CV 15.2 % (10.5-14.5); WBC 6.2 thou/uL (4.0-11.0)
[2021-06-04 04:30] LABS: ALBUMIN 2.9 g/dL (3.4-5.0); CALCIUM 8.2 mg/dL (8.5-10.1); CREATININE 0.7 mg/dL (0.6-1.3); POTASSIUM 3.5 mmol/L (3.5-5.1); TOTAL BILIRUBIN 0.5 mg/dL (<0.1-1.0); TOTAL PROTEIN 5.5 g/dL (6.4-8.2)
[2021-06-04 06:38] LABS: ABSOLUTE LYMPHOCYTES 0.5 thou/uL (0.8-5.3); ABSOLUTE MONOCYTES 0.2 thou/uL (0.0-1.2); ABSOLUTE NEUTROPHILS 5.5 thou/uL (1.6-8.1); PLATELET ESTIMATE ADEQUATE
[2021-06-04 08:00] VITALS: BP 140/91
[2021-06-04 12:00] VITALS: BP 138/88
[2021-06-04 16:00] VITALS: BP 109/79
[2021-06-05] VITALS: BP 154/88
[2021-06-05 04:00] VITALS: BP 110/74
[2021-06-05 07:38] LABS: ABSOLUTE LYMPHOCYTES 0.4 thou/uL (0.8-5.3); ABSOLUTE MONOCYTES 0.3 thou/uL (0.0-1.2); ABSOLUTE NEUTROPHILS 6.7 thou/uL (1.6-8.1); BASOPHILS 0.1 %; HEMATOCRIT 38.5 % (37.0-47.0); HEMOGLOBIN 12.2 gm/dL (12.0-15.0); MCH 25.7 pg (26.0-34.0); MCHC 31.6 g/dL (28.0-37.0); MCV 81.4 fL (80.0-100.0); MONOCYTES 3.6 %; MPV 7.5 fl. (7.2-11.1); NUCLEATED RBCS 0 /100WBC; PLATELET COUNT* 285 thou/uL (150-400); POLYS 91.3 %; RBC 4.73 mil/uL (4.20-5.00); RDW-CV 15.7 % (10.5-14.5); WBC 7.3 thou/uL (4.0-11.0)
[2021-06-05 07:52] LABS: ALBUMIN 2.8 g/dL (3.4-5.0); CALCIUM 8.3 mg/dL (8.5-10.1); CREATININE 0.5 mg/dL (0.6-1.3); POTASSIUM 3.5 mmol/L (3.5-5.1); TOTAL BILIRUBIN 0.5 mg/dL (<0.1-1.0); TOTAL PROTEIN 5.4 g/dL (6.4-8.2)
[2021-06-05 08:00] VITALS: BP 140/76
[2021-06-05 12:47] VITALS: BP 116/74
[2021-06-05 17:32] VITALS: BP 121/80
[2021-06-05 21:15] VITALS: BP 136/85
[2021-06-06] VITALS: BP 122/82
[2021-06-06 04:00] VITALS: BP 121/80
[2021-06-06 05:09] LABS: ABSOLUTE LYMPHOCYTES 0.3 thou/uL (0.8-5.3); ABSOLUTE MONOCYTES 0.2 thou/uL (0.0-1.2); ABSOLUTE NEUTROPHILS 7.1 thou/uL (1.6-8.1); BASOPHILS 0.1 %; HEMATOCRIT 35.1 % (37.0-47.0); HEMOGLOBIN 11.2 gm/dL (12.0-15.0); MCH 26.2 pg (26.0-34.0); MCV 81.8 fL (80.0-100.0); MPV 7.5 fl. (7.2-11.1); NUCLEATED RBCS 0 /100WBC; POLYS 92.9 %; RBC 4.29 mil/uL (4.20-5.00); RDW-CV 15.4 % (10.5-14.5); WBC 7.6 thou/uL (4.0-11.0)
[2021-06-06 05:32] LABS: CALCIUM 8.3 mg/dL (8.5-10.1); CREATININE 0.7 mg/dL (0.6-1.3); POTASSIUM 3.7 mmol/L (3.5-5.1); TOTAL BILIRUBIN 0.6 mg/dL (<0.1-1.0); TOTAL PROTEIN 5.4 g/dL (6.4-8.2)
[2021-06-06 05:43] LABS: PLATELET COUNT* 370 thou/uL (150-400)
[2021-06-06 07:00] VITALS: BP 105/72
[2021-06-06 12:00] VITALS: BP 118/75
[2021-06-06 20:00] VITALS: BP 115/81
[2021-06-07 00:42] VITALS: BP 117/84
[2021-06-07 04:15] VITALS: BP 109/72
[2021-06-07 04:20] LABS: HEMATOCRIT 34.5 % (37.0-47.0); HEMOGLOBIN 11.1 gm/dL (12.0-15.0); MCV 81.3 fL (80.0-100.0); MPV 7.3 fl. (7.2-11.1); NUCLEATED RBCS 0 /100WBC; PLATELET COUNT* 405 thou/uL (150-400); RBC 4.25 mil/uL (4.20-5.00); RDW-CV 15.9 % (10.5-14.5); WBC 10.3 thou/uL (4.0-11.0)
[2021-06-07 04:43] LABS: ALBUMIN 2.9 g/dL (3.4-5.0); CALCIUM 8.1 mg/dL (8.5-10.1); CREATININE 0.5 mg/dL (0.6-1.3); POTASSIUM 3.9 mmol/L (3.5-5.1); TOTAL BILIRUBIN 0.5 mg/dL (<0.1-1.0); TOTAL PROTEIN 5.4 g/dL (6.4-8.2)
[2021-06-07 07:12] LABS: ABSOLUTE LYMPHOCYTES 0.5 thou/uL (0.8-5.3); ABSOLUTE MONOCYTES 0.6 thou/uL (0.0-1.2); ABSOLUTE NEUTROPHILS 9.2 thou/uL (1.6-8.1)
[2021-06-07 07:13] LABS: PLATELET ESTIMATE ADEQUATE
[2021-06-07 08:15] VITALS: BP 110/79
[2021-06-07 14:13] VITALS: BP 97/68
[2021-06-07 17:38] LABS: BE 8.4 mmol/L (-2 to +3); PCO2 39.8 mmHg (35.0-45.0); PO2 86.5 mmHg (75.0-100.0); pH 7.521 (7.340-7.450)
[2021-06-07 18:43] VITALS: BP 104/76
[2021-06-07 22:00] VITALS: BP 81/58
[2021-06-08] VITALS: BP 118/62
[2021-06-08 04:00] VITALS: BP 106/68
[2021-06-08 08:19] LABS: ABSOLUTE BASOPHILS 0.1 thou/uL (0.0-0.2); ABSOLUTE LYMPHOCYTES 0.5 thou/uL (0.8-5.3); ABSOLUTE MONOCYTES 0.4 thou/uL (0.0-1.2); ABSOLUTE NEUTROPHILS 10.7 thou/uL (1.6-8.1); BASOPHILS 0.5 %; EOSINOPHILS 0.3 %; HEMOGLOBIN 11.6 gm/dL (12.0-15.0); LYMPHOCYTES 4.7 %; MCH 26.3 pg (26.0-34.0); MCHC 32.2 g/dL (28.0-37.0); MCV 81.6 fL (80.0-100.0); MONOCYTES 3.1 %; MPV 7.5 fl. (7.2-11.1); NUCLEATED RBCS 0 /100WBC; PLATELET COUNT* 441 thou/uL (150-400); POLYS 91.4 %; RBC 4.41 mil/uL (4.20-5.00); RDW-CV 16.1 % (10.5-14.5); WBC 11.7 thou/uL (4.0-11.0)
[2021-06-08 08:32] LABS: ALBUMIN 3.1 g/dL (3.4-5.0); CALCIUM 8.2 mg/dL (8.5-10.1); CREATININE 0.6 mg/dL (0.6-1.3); MAGNESIUM 2.3 mg/dL (1.8-2.4); PHOSPHORUS* 3.7 mg/dL (2.5-4.9); POTASSIUM 3.6 mmol/L (3.5-5.1); TOTAL BILIRUBIN 0.6 mg/dL (<0.1-1.0); TOTAL PROTEIN 5.6 g/dL (6.4-8.2)
[2021-06-08 12:00] VITALS: BP 110/78
[2021-06-08 16:00] VITALS: BP 114/79
[2021-06-08 20:40] VITALS: BP 126/77
[2021-06-09] VITALS: BP 118/76
[2021-06-09 04:00] VITALS: BP 122/73
[2021-06-09 08:14] VITALS: BP 138/85
[2021-06-09 12:00] VITALS: BP 98/70
[2021-06-09 16:00] VITALS: BP 101/70
[2021-06-09 21:30] VITALS: BP 93/71
[2021-06-10] VITALS: BP 100/72
[2021-06-10 04:00] VITALS: BP 100/75
[2021-06-10 09:00] VITALS: BP 117/76
[2021-06-10 12:12] VITALS: BP 106/72
[2021-06-10] MEDS ORDERED: XANAX1 MG PO (14:10)
[2021-06-10] MEDS ORDERED: NORCO7.5 PO (14:10)
[2021-06-10] MEDS ORDERED: TIZANIDINE HCL4 M1 PO (14:10)
== END 2021-06-10 14:30 | DRG 177 ==
LOC: M.ERS 18:23 → M.TBA-ER 19:43 → M.ORTHSURG 19:43
PROVIDERS: Internal Medicine; Physician Assistant; ADMIT Internal Medicine; ATTEND Internal Medicine
PROC: XW033E5 Introduction of Remdesivir Anti-infective into Peripheral Vein, Percutaneous Approach, New Technology Group 5 (ICD-10-PCS; 2021-06-01)
PROC: 5A09357 Assistance with Respiratory Ventilation, Less than 24 Consecutive Hours, Continuous Positive Airway Pressure (ICD-10-PCS; 2021-06-04)
PROC: 5A09357 Assistance with Respiratory Ventilation, Less than 24 Consecutive Hours, Continuous Positive Airway Pressure (ICD-10-PCS; 2021-06-07)
PROC: 5A09357 Assistance with Respiratory Ventilation, Less than 24 Consecutive Hours, Continuous Positive Airway Pressure (ICD-10-PCS; 2021-06-08)
PROC: 5A09357 Assistance with Respiratory Ventilation, Less than 24 Consecutive Hours, Continuous Positive Airway Pressure (ICD-10-PCS; 2021-06-09)
PROC: 5A09357 Assistance with Respiratory Ventilation, Less than 24 Consecutive Hours, Continuous Positive Airway Pressure (ICD-10-PCS; principal; 2021-06-10)
DX: U07.1 COVID-19 (principal); J96.01 Acute respiratory failure with hypoxia; J12.82 Pneumonia due to coronavirus disease 2019; J44.0 Chronic obstructive pulmonary disease with (acute) lower respiratory infection; J44.1 Chronic obstructive pulmonary disease with (acute) exacerbation; E46 Unspecified protein-calorie malnutrition; J98.11 Atelectasis; Z88.8 Allergy status to other drugs, medicaments and biological substances; Z79.899 Other long term (current) drug therapy; Z68.22 Body mass index [BMI] 22.0-22.9, adult; E88.09 Other disorders of plasma-protein metabolism, not elsewhere classified; I10 Essential (primary) hypertension; Z91.040 Latex allergy status